=== PATIENT | male | born 1940 | race African-American/Black ===

== ENCOUNTER 2017-01-05 20:51 | Inpatient (IN) | payer MEDICARE ==
[~2017-01-05] VITALS: Ht 193 cm; Wt 88.9 kg
[2017-01-06 00:45] VITALS: BP 117/65
[2017-01-06 02:38] LABS: KETONES,URINE 3+ (NEGATIVE); LEUKOCYTE ESTERASE ,URINE 3+ (NEGATIVE); NITRITE,URINE NEGATIVE (NEGATIVE); PH,URINE 5 (4.5-8.0); PROTEIN,URINE 2+ (NEGATIVE); UROBILINOGEN,URINE 4 MG/DL (0.0-1.0)
[2017-01-06 03:12] LABS: APPEARANCE,URINE SLIGHTLY CLOUDY
[2017-01-06 03:15] LABS: BACTERIA,URINE MANY /HPF; SQUAMOUS EPITHELIAL CELL,UR FEW /LPF (NONE/OCC); WBC,URINE TNTC /HPF (0 - 0)
[2017-01-06] MEDS ORDERED: Norco 5mg/325mg tab ORAL PRN (03:45)
[2017-01-06 04:00] VITALS: BP 130/63
[2017-01-06] MEDS: D5 1/2NS 1,000 ML IV SCH ×2 (04:17→17:06)
[2017-01-06 06:38] LABS: BASOPHILS % (AUTO) 0.4 % (0.0-2.0); EOSINOPHILS % (AUTO) 1.1 % (0.0-3.0); MEAN CORPUSCULAR HEMOGLOBIN 26.9 PG (27.0-31.0); MEAN CORPUSCULAR HGB CONC 31.6 G/DL (32.0-36.0); MEAN CORPUSCULAR VOLUME 85 FL (80-99); MEAN PLATELET VOLUME 8.4 FL (6.5-10.1); MONOCYTES % (AUTO) 9.5 % (1.0-10.0); PLATELET COUNT 108 K/UL (150-450); RED BLOOD COUNT 4.16 M/UL (4.70-6.10); RED CELL DISTRIBUTION WIDTH 12.5 % (11.6-14.8); WHITE BLOOD COUNT 8.1 K/UL (4.8-10.8)
[2017-01-06 06:47] LABS: TROPONIN I < 0.30 ng/mL (<=0.30)
[2017-01-06 06:50] LABS: ALANINE AMINOTRANSFERASE 36 U/L (3-41); ALBUMIN/GLOBULIN RATIO 1.7 (1.0-2.7); ANION GAP 9 (5-15); ASPARTATE AMINO TRANSFERASE 84 U/L (5-40); CALCIUM 9.9 mg/dL (8.6-10.2); CARBON DIOXIDE 27 mEQ/L (20-30); CHLORIDE 102 mEQ/L (98-107); CREATININE 0.9 mg/dL (0.7-1.2); HEMOLYSIS 2; MAGNESIUM 1.7 mg/dL (1.7-2.5); PHOSPHORUS 2.2 mg/dL (2.5-4.8); POTASSIUM 3.9 mEQ/L (3.4-4.9); SODIUM 138 mEQ/L (135-145); TOTAL PROTEIN 6.1 g/dL (6.6-8.7); URIC ACID 6.5 mg/dL (3.0-7.5)
[2017-01-06 08:00] VITALS: BP 144/69
[2017-01-06] MEDS: Heparin 5000 units/ml inj SUBQ SCH ×2 (08:34→20:34)
[2017-01-06] MEDS ORDERED: D5 1/2NS 1000ml IV ONE (11:07)
[2017-01-06 12:00] VITALS: BP 152/78
--- NOTE | 2017-01-06 12:01 | Consultation ---
History of Present Illness General Date patient seen: Jan 06, 2017 Chief Complaint: aloc Referring physician: Dr. Carroll Reason for Consultation: Inpatient management Present Illness HPI 76 year old male without any pmhx was taken to [facility] with CC of acute loss of consciousness. He was not able to get up. He was incontinent with Urine and doesn't have any bite crawley on his tongue. Allergies: Coded Allergies: No Known Allergies (Unverified , 01/06/17) Patient History Healthcare decision maker Resuscitation status Full Code Advanced Directive on File Past Medical/Surgical History Past Medical/Surgical History: (1) No pertinent past medical history Review of Systems All Other Systems: negative except mentioned in HPI Physical Exam General Appearance: WD/WN Lines, tubes and drains: peripheral Neck: non-tender, normal alignment Respiratory/Chest: chest wall non-tender, lungs clear Cardiovascular/Chest: normal peripheral pulses, normal rate Abdomen: normal bowel sounds, non tender Genitourinary/Rectal: normal genital exam, normal rectal exam Skin Exam: normal pigmentation 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 Last 24 Hour Vital Signs Date Time Temp Pulse Resp B/P (MAP) Pulse Ox O2 Delivery O2 Flow Rate FiO2 01/06/17 08:00 97.7 82 20 144/69 97 Room Air 01/06/17 08:00 89 01/06/17 04:00 90 01/06/17 04:00 97.9 88 21 130/63 96 Room Air 01/06/17 01:00 88 01/06/17 00:45 97.9 86 18 117/65 96 Room Air Intake and Output 01/06/17 01/07/17 19:00 07:00 Intake Total 75 ml Balance 75 ml Intake IV Total 75 ml Laboratory Tests Test 01/06/17 01:40 01/06/17 05:25 Urine Color Yellow Urine Appearance Slightly cloudy Urine pH 5 (4.5-8.0) Urine Specific [place] 1.025 (1.005-1.035) Urine Protein 2+ (NEGATIVE) H Urine Glucose (UA) Negative (NEGATIVE) Urine Ketones 3+ (NEGATIVE) H Urine Occult Blood 2+ (NEGATIVE) H Urine Nitrite Negative (NEGATIVE) Urine Bilirubin Negative (NEGATIVE) Urine Urobilinogen 4 MG/DL (0.0-1.0) H Urine Leukocyte Esterase 3+ (NEGATIVE) H Urine RBC 2-4 /HPF (0 - 0) H Urine WBC Tntc /HPF (0 - 0) H Urine Squamous Epithelial Cells Few /LPF (NONE/OCC) Urine Bacteria Many /HPF (NONE) H White Blood Count 8.1 K/UL (4.8-10.8) Red Blood Count 4.16 M/UL (4.70-6.10) L Hemoglobin 11.2 G/DL (14.2-18.0) L Hematocrit 35.5 % (42.0-52.0) L Mean Corpuscular Volume 85 FL (80-99) Mean Corpuscular Hemoglobin 26.9 PG (27.0-31.0) L Mean Corpuscular Hemoglobin Concent 31.6 G/DL (32.0-36.0) L Red Cell Distribution Width 12.5 % (11.6-14.8) Platelet Count 108 K/UL (150-450) L Mean Platelet Volume 8.4 FL (6.5-10.1) Neutrophils (%) (Auto) 71.0 % (45.0-75.0) Lymphocytes (%) (Auto) 18.0 % (20.0-45.0) L Monocytes (%) (Auto) 9.5 % (1.0-10.0) Eosinophils (%) (Auto) 1.1 % (0.0-3.0) Basophils (%) (Auto) 0.4 % (0.0-2.0) Sodium Level 138 mEQ/L (135-145) Potassium Level 3.9 mEQ/L (3.4-4.9) Chloride Level 102 mEQ/L (98-107) Carbon Dioxide Level 27 mEQ/L (20-30) Anion Gap 9 (5-15) Blood Urea Nitrogen 14 mg/dL (7-23) Creatinine 0.9 mg/dL (0.7-1.2) Estimat Glomerular Filtration Rate mL/min (>60) Glucose Level 109 mg/dL (74-106) H Uric Acid 6.5 mg/dL (3.0-7.5) Calcium Level 9.9 mg/dL (8.6-10.2) Phosphorus Level 2.2 mg/dL (2.5-4.8) L Magnesium Level 1.7 mg/dL (1.7-2.5) Total Bilirubin 0.9 mg/dL (0.0-1.2) Aspartate Amino Transf (AST/SGOT) 84 U/L (5-40) H Alanine Aminotransferase (ALT/SGPT) 36 U/L (3-41) Alkaline Phosphatase 66 U/L (40-129) Troponin I < 0.30 ng/mL (<=0.30) Total Protein 6.1 g/dL (6.6-8.7) L Albumin 3.9 g/dL (3.5-5.2) Globulin 2.2 g/dL Albumin/Globulin Ratio 1.7 (1.0-2.7) Height (Feet): 6 Height (Inches): 5.00 Weight (Pounds): 196 Medications Current Medications Medications (Trade) Dose Ordered Sig/Neri Route PRN Reason Start Time Stop Time Status Last Admin Dose Admin Acetaminophen (Tylenol) 650 mg Q6H PRN ORAL Mild Pain/Temp > 100.5 01/06/17 03:45 02/05/17 03:44 Acetaminophen/ Hydrocodone Bitart ([place] 5/325) 1 tab Q6H PRN ORAL Severe Pain (Pain Scale 7-10) 01/06/17 03:45 01/13/17 03:44 Ceftriaxone Sodium 1 gm/ Dextrose 55 ml @ 110 mls/hr Q24H IVPB 01/06/17 12:00 01/13/17 11:59 UNV Dextrose (Dextrose 50%) STAT PRN IV Hypoglycemia 01/06/17 03:30 02/05/17 03:29 Dextrose/Sodium Chloride 1,000 ml @ 75 mls/hr [id number] IV 01/06/17 04:00 02/05/17 03:59 01/06/17 04:17 Heparin Sodium (Porcine) (Heparin 5000 units/ml) 5,000 units EVERY 12 HOURS SUBQ 01/06/17 09:00 02/05/17 08:59 01/06/17 08:34 Assessment/Plan Problem List: (1) Acute encephalopathy ICD Codes: G93.40 - Encephalopathy, unspecified SNOMED: 3468793 (2) UTI (urinary tract infection) ICD Codes: N39.0 - Urinary tract infection, site not specified SNOMED: 04374080 Assessment/Plan cardiac evaluation telemetry echo doppler of carotid artey anemia w/u check urine cultures iv abx check electrolytes ZARRABI,MIRALI Jan 06, 2017 12:01
--- NOTE | 2017-01-06 12:16 | History & Physical ---
History and Physical History & Physicial Dictated for Int Med-Dr Cunha no. [id number]. NETTIE SR Jan 06, 2017 12:16
[2017-01-06] MEDS: cefTRIAXone 1 GM in D5W 55 ML IVPB SCH (12:51)
[2017-01-06 16:00] VITALS: BP 139/84
--- NOTE | 2017-01-06 18:27 | Cardiology Report ---
APPROVED REPORT EXAM: Two-dimensional and M-mode echocardiogram with Doppler and color Doppler. INDICATION Left ventricular function M-Mode DIMENSIONS IVSd0.9 (0.7-1.1cm)Left Atrium (MM)4.4 (1.6-4.0cm) LVDd4.2 (3.5-5.6cm)Aortic Root3.4 (2.0-3.7cm) PWd1.2 (0.7-1.1cm)Aortic Cusp Exc.2.0 (1.5-2.0cm) LVDs3.0 (2.5-4.0cm) PWs1.3 cm Technically difficult study due to poor acoustical windows. Normal left ventricular chamber size, systolic function and wall motion. Left ventricular ejection fraction estimated to be 55-60%. Mild left ventricular hypertrophy. No evidence of pericardial effusion. Right cardiac chamber sizes are within normal limits. Mild left atrial enlargement by 2D. Focal aortic valve sclerosis with adequate cusp excursion. Thickened mitral valve leaflets with normal excursion. Mild mitral annulus and aortic root calcification. Pulmonic valve not well visualized. Normal tricuspid valve structure. IVC dilated at 2.4 cm non-collapsible with respiration indicate increased RA pressure. A color flow and spectral Doppler study was performed and revealed: No mitral regurgitation. Mitral diastolic velocities suggest reduced left ventricular relaxation c/w diastolic dysfunction grade 1. No tricuspid regurgitation. Tricuspid systolic velocities suggests peak right ventricular systolic pressure of 22mmHg Pulmonic regurgitation present.
--- NOTE | 2017-01-06 19:02 | Cardiology Report ---
APPROVED REPORT EKG Measurement Heart [id number] Normal sinus rhythm Nonspecific T wave abnormality Abnormal ECG
--- NOTE | 2017-01-06 20:07 | Consultation ---
Consult Note Consult Note ID Consult Probable UTI Pyuria SP Fall P: Cont pt on IV Rocephin monitor CBC monitor Cx ( bk, Urine ) CINDY Romero M.D. Jan 06, 2017 20:07
[2017-01-06 20:15] VITALS: BP 141/75
--- NOTE | 2017-01-06 21:15 | History and Physical Report ---
DATE OF ADMISSION: 01/06/2017 Chief Complaint: The patient is a 76-year-old male who presents with chief complaint of "blacked out." History Of Present Illness: The patient states he was standing in his kitchen two days previously. The patient "blacked out". The patient states the room did not spin, he just simply passed out. The patient then remained on the kitchen floor for two days. The patient was found by his landlord yesterday, 01/05/2017. EMS was called. The patient was initially transferred to [facility] emergency room. The patient is transferred to [facility] for insurance purposes. The patient is admitted for syncopal episode to rule out cerebrovascular accident. PAST MEDICAL HISTORY: The patient denies. PAST SURGICAL HISTORY: Significant for right knee surgery. MEDICATIONS: Current medications, [id number] multivitamin. Social History: The patient is single and lives alone. The patient admits to tobacco use of one-half pack per day. The patient denies alcohol use. Review of Systems: Constitutional: The patient denies weight loss or weight gain. The patient denies fevers or chills. HEENT: The patient denies ear or throat pain. The patient denies headache. Cardiovascular: The patient denies palpitations or chest pain. Chest: The patient denies wheeze or shortness of breath. Abdomen: The patient denies nausea, vomiting, diarrhea, or constipation. Genitourinary: The patient denies dysuria or increased frequency of urination, however, the patient was incontinent of urine during the last two days. Neurologic: The patient denies seizures. The patient does have generalized weakness. The patient admits to syncopal episode as above. PHYSICAL EXAMINATION: General: The patient is well-developed and well-nourished male, in no apparent distress. Vital Signs: Temperature 97.9 degrees, respirations 18, pulse 86, and blood pressure 117/65. HEENT: Eyes, pupils are equal and responsive to light and accommodation. Extraocular movements are intact. NECK: Supple without lymphadenopathy. Chest: Lungs are clear to auscultation bilaterally without wheezes or rales. Cardiovascular: Regular rhythm and rate. S1 and S2 normal without murmurs, rubs, or gallops. Abdomen: Soft, nontender, and nondistended. Positive bowel sounds. No evidence of hepatosplenomegaly. Currently, no rebound or guarding noted. EXTREMITIES: Negative for clubbing, cyanosis, or edema. RECTAL/GENITAL: Refused. Neurological: The patient has 3/5 motor strength bilaterally. Deep tendon reflexes are 2+ plantar. Laboratory And Diagnostic Data: A CT scan of the brain revealed no acute intracranial pathology. WBC 8.5, hemoglobin 12.8, hematocrit 40.4, and platelets 126,000. Sodium 141, potassium 4.1, chloride 101, CO2 25, BUN 14, creatinine 1.10 and glucose 108. CK elevated at 2385. ASSESSMENT: This is a 76-year-old male. 1. Syncope. 2. Rhabdomyolysis. TREATMENT: 1. Syncopal episode. A Neurology consultation obtained with Dr. Sanchez. An MRI of the brain is pending. Carotid duplex and Dopplers are pending. An echocardiogram is pending. We will follow recommendation of Neurology. 2. Rhabdomyolysis secondary to the patient being on the floor for two days. The patient is currently receiving intravenous fluids. Serial renal function and CPKs will be performed. Tanmay Carroll M.D. DR: ELENA JOB#: [id number] CC:
[2017-01-07 00:17] VITALS: BP 134/83
[2017-01-07 04:00] VITALS: BP 125/72
[2017-01-07] MEDS: D5 1/2NS 1,000 ML IV SCH ×2 (06:24→19:53)
[2017-01-07 06:56] LABS: INR 1.2 (0.9-1.1); PROTHROMBIN TIME 12.2 SEC (9.30-11.50)
[2017-01-07 07:07] LABS: MEAN CORPUSCULAR HEMOGLOBIN 25.8 PG (27.0-31.0); MEAN CORPUSCULAR HGB CONC 30.6 G/DL (32.0-36.0); MEAN CORPUSCULAR VOLUME 84 FL (80-99); MEAN PLATELET VOLUME 9.3 FL (6.5-10.1); PLATELET COUNT 112 K/UL (150-450); RED BLOOD COUNT 4.21 M/UL (4.70-6.10); RED CELL DISTRIBUTION WIDTH 12.3 % (11.6-14.8); WHITE BLOOD COUNT 6.2 K/UL (4.8-10.8)
[2017-01-07 07:38] LABS: CKMB 3.3 ng/mL (< 6.7)
[2017-01-07 07:39] LABS: ANION GAP 15 (5-15); CALCIUM 8.6 mg/dL (8.6-10.2); CARBON DIOXIDE 25 mEQ/L (20-30); CHLORIDE 98 mEQ/L (98-107); CREATININE 0.9 mg/dL (0.7-1.2); HEMOLYSIS 2; POTASSIUM 3.9 mEQ/L (3.4-4.9); SODIUM 138 mEQ/L (135-145)
[2017-01-07 08:00] VITALS: BP 118/56
[2017-01-07 08:04] LABS: RETICULOCYTE COUNT 1.9 % (0.0-2.0)
[2017-01-07 08:25] LABS: ERYTHROCYTE SEDIMENTATION RATE 47 MM/HR (0-20)
[2017-01-07 08:38] LABS: BAND NEUTROPHILS % (MANUAL) 0 % (0-8); BASOPHILS % (MANUAL) 0 % (0-2); EOSINOPHILS % (MANUAL) 0 % (0-3); LYMPHOCYTES % (MANUAL) 17 % (20-45); NEUTROPHILS % (MANUAL) 77 % (45-75); PLATELET ESTIMATE DECREASED; PLATELET MORPHOLOGY NORMAL; TOTAL CELLS COUNTED 100
[2017-01-07 08:39] LABS: HYPOCHROMASIA 2+
[2017-01-07 08:46] LABS: PATH BLOOD SMEAR/OMC SENT TO PATHOLOGIST
[2017-01-07] MEDS: Heparin 5000 units/ml inj SUBQ SCH ×2 (09:34→21:00)
--- NOTE | 2017-01-07 11:47 | Wound Care Consultation ---
Wound Assessment Wound Assessment #1: Wound Number: 1 Wound Present on Admission: Yes New Wound: No Status Change of Wound: No Wound Location Body Site Modif: right Wound Location Body Site: elbow Wound Type: traumatic injury Marianna Test: Does not Marianna Wound Thickness: Full Thickness Wound Length: 3.0 Wound Width: 3.0 Percent of Wound Angle Inlet/Red: 100 Wound Drainage Description: Serosanguineous Wound Drainage Amount: Moderate Wound Drainage Odor: None/Absent Tissue Surrounding Wound: Erythemic Wound General Appearance: Reddened, Draining Wound Assessment #2: Wound Number: 2 Wound Present on Admission: Yes New Wound: No Status Change of Wound: No Wound Location Body Site Modif: right Wound Location Body Site: knee Wound Type: traumatic injury Marianna Test: Does not Marianna Wound Thickness: Partial Thickness Wound Length: 4.0 Wound Width: 4.0 Wound Depth: 0.1 Percent of Wound Angle Inlet/Red: 50 Percent of Wound Bed Yellow/Wh: 50 Wound Drainage Description: Serosanguineous Wound Drainage Amount: Moderate Wound Drainage Odor: None/Absent Tissue Surrounding Wound: Erythemic Wound General Appearance: Reddened, Draining Wound Assessment #3: Wound Number: 3 Wound Present on Admission: Yes New Wound: No Status Change of Wound: No Wound Location Body Site Modif: right, medial Wound Location Body Site: foot Wound Type: scab - scattered scabs Marianna Test: Does not Marianna Wound Thickness: Partial Thickness Percent of Wound Black/Brown: 100 - dry scattered scabs Wound Drainage Amount: None Wound Drainage Odor: None/Absent Tissue Surrounding Wound: Erythemic Wound General Appearance: Open to air, Clean/Dry Wound Assessment #4: Wound Number: 4 Wound Present on Admission: Yes New Wound: No Status Change of Wound: No Wound Location Body Site Modif: left Wound Location Body Site: knee Wound Type: scab Marianna Test: Does not Marianna Wound Thickness: Partial Thickness Percent of Wound Black/Brown: 100 - scab Wound Drainage Amount: None Wound Drainage Odor: None/Absent Tissue Surrounding Wound: Erythemic Wound General Appearance: Open to air, Clean/Dry Wound Assessment #5: Wound Number: 5 Wound Present on Admission: Yes New Wound: No Status Change of Wound: No Wound Location Body Site Modif: left, anterior Wound Location Body Site: wrist Wound Type: traumatic injury Marianna Test: Does not Marianna Wound Thickness: Partial Thickness Wound Length: 1.5 Wound Width: 1.5 Wound Depth: utd Percent of Wound Black/Brown: 100 - scab Wound Drainage Amount: None Wound Drainage Odor: None/Absent Tissue Surrounding Wound: Erythemic Wound General Appearance: Open to air, Clean/Dry Wound Comment #1 right elbow traumatic injury -abrasion. #2 right knee traumatic injury-abrasion. #3 right medial lower leg scattered scabs. #4 left knee area scabs. #5 anterior wrist scab. Recommendation. -Local wound care as ordered. -Turn and reposition. -Keep clean and dry. -Optimize nutrition. -keep scabs clean and dry. -Assess and notify MD for any changes of condition. ANTIONE SANCHEZ Jan 07, 2017 11:47
--- NOTE | 2017-01-07 11:58 | Pulmonology Progress Note ---
Assessment/Plan Problems: (1) Acute encephalopathy (2) UTI (urinary tract infection) Assessment/Plan pt/ot report reviewed pt will need snif or home with 24 hour care. continue abx check curine cultures Subjective ROS Limited/Unobtainable: No Interval Events: asymptomatic Allergies: Coded Allergies: No Known Allergies (Unverified , 01/06/17) Objective Last 24 Hour Vital Signs Date Time Temp Pulse Resp B/P (MAP) Pulse Ox O2 Delivery O2 Flow Rate FiO2 01/07/17 08:00 97.9 78 21 118/56 97 Room Air 01/07/17 08:00 93 01/07/17 04:00 98.2 85 20 125/72 95 Room Air 01/07/17 04:00 88 01/07/17 00:17 97.0 97 20 134/83 95 Room Air 01/07/17 00:00 93 01/06/17 20:15 99.1 86 20 141/75 96 Room Air 01/06/17 20:00 91 01/06/17 16:00 99.0 88 20 139/84 96 Room Air 01/06/17 16:00 96 01/06/17 12:00 96 01/06/17 12:00 98.1 91 18 152/78 97 Room Air General Appearance: WD/WN HEENT: normocephalic, atraumatic Respiratory/Chest: chest wall non-tender, lungs clear Cardiovascular: normal peripheral pulses, normal rate Abdomen: normal bowel sounds, soft, non tender Genitourinary: normal external genitalia Extremities: no cyanosis 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 Microbiology Date/Time Source Procedure Growth Status 01/06/17 01:40 Wound Gram Stain - Final Resulted 01/06/17 01:40 Wound Wound Culture Pending Resulted 01/06/17 17:40 Urine,Ureter/Kidney Urine Culture - Preliminary NO GROWTH Resulted 01/06/17 01:40 Urine,Clean Catch Urine Culture - Preliminary Mixed Gram Positive Organism Resulted Laboratory Tests 01/07/17 05:15: White Blood Count 6.2, Red Blood Count 4.21L, Hemoglobin 10.9L, Hematocrit 35.6L , Mean Corpuscular Volume 84, Mean Corpuscular Hemoglobin 25.8L, Mean Corpuscular Hemoglobin Concent 30.6L, Red Cell Distribution Width 12.3, Platelet Count 112L, Mean Platelet Volume 9.3, Neutrophils (%) (Auto) , Lymphocytes (%) (Auto) , Monocytes (%) (Auto) , Eosinophils (%) (Auto) , Basophils (%) (Auto) , Differential Total Cells Counted 100, Neutrophils % ( Manual) 77H, Lymphocytes % (Manual) 17L, Monocytes % (Manual) 6, Eosinophils % ( Manual) 0, Basophils % (Manual) 0, Band Neutrophils 0, Platelet Estimate DecreasedL, Platelet Morphology Normal, Hypochromasia 2+, Erythrocyte Sedimentation Rate 47H, Reticulocyte Count 1.9, Prothrombin Time 12.2H, Prothromb Time International Ratio 1.2H, Activated Partial Thromboplast Time 27 , Sodium Level 138, Potassium Level 3.9, Chloride Level 98, Carbon Dioxide Level 25, Anion Gap 15, Blood Urea Nitrogen 8, Creatinine 0.9, Estimat Glomerular Filtration Rate , Glucose Level 107H, Calcium Level 8.6, Iron Level 28L, Total Iron Binding Capacity 184L, Percent Iron Saturation 15, Unsaturated Iron Binding 156, Lactate Dehydrogenase 264H, Total Creatine Kinase 1011H, Creatine Kinase MB 3.3, Creatine Kinase MB Relative Index 0.3, Carcinoembryonic Antigen 2.4, Vitamin B12 Level 222, Folate [Pending] Current Medications Medications (Trade) Dose Ordered Sig/Neri Route PRN Reason Start Time Stop Time Status Last Admin Dose Admin Acetaminophen (Tylenol) 650 mg Q6H PRN ORAL Mild Pain/Temp > 100.5 01/06/17 03:45 02/05/17 03:44 Acetaminophen/ Hydrocodone Bitart ([place] 5/325) 1 tab Q6H PRN ORAL Severe Pain (Pain Scale 7-10) 01/06/17 03:45 01/13/17 03:44 01/06/17 16:51 Ceftriaxone Sodium 1 gm/ Dextrose 55 ml @ 110 mls/hr Q24H IVPB 01/06/17 13:00 01/13/17 12:59 01/06/17 12:51 Dextrose (Dextrose 50%) STAT PRN IV Hypoglycemia 01/06/17 03:30 02/05/17 03:29 Dextrose/Sodium Chloride 1,000 ml @ 75 mls/hr [id number] IV 01/06/17 04:00 02/05/17 03:59 01/07/17 06:24 Heparin Sodium (Porcine) (Heparin 5000 units/ml) 5,000 units EVERY 12 HOURS SUBQ 01/06/17 09:00 02/05/17 08:59 01/07/17 09:34 MARY ANN CRUZ Jan 07, 2017 11:58
[2017-01-07 12:00] VITALS: BP 128/63
[2017-01-07] MEDS: cefTRIAXone 1 GM in D5W 55 ML IVPB SCH (12:42)
--- NOTE | 2017-01-07 14:25 | Neurology Progress Note ---
Interim History Interim History ROS Limited/Unobtainable: No Objective Physical Exam Last Vital Signs Date Time Temp Pulse Resp B/P (MAP) Pulse Ox O2 Delivery O2 Flow Rate FiO2 01/07/17 12:00 72 01/07/17 12:00 97.7 21 128/63 96 Room Air Laboratory Tests Test 01/07/17 05:15 White Blood Count 6.2 K/UL (4.8-10.8) Red Blood Count 4.21 M/UL (4.70-6.10) L Hemoglobin 10.9 G/DL (14.2-18.0) L Hematocrit 35.6 % (42.0-52.0) L Mean Corpuscular Volume 84 FL (80-99) Mean Corpuscular Hemoglobin 25.8 PG (27.0-31.0) L Mean Corpuscular Hemoglobin Concent 30.6 G/DL (32.0-36.0) L Red Cell Distribution Width 12.3 % (11.6-14.8) Platelet Count 112 K/UL (150-450) L Mean Platelet Volume 9.3 FL (6.5-10.1) Neutrophils (%) (Auto) % (45.0-75.0) Lymphocytes (%) (Auto) % (20.0-45.0) Monocytes (%) (Auto) % (1.0-10.0) Eosinophils (%) (Auto) % (0.0-3.0) Basophils (%) (Auto) % (0.0-2.0) Differential Total Cells Counted 100 Neutrophils % (Manual) 77 % (45-75) H Lymphocytes % (Manual) 17 % (20-45) L Monocytes % (Manual) 6 % (1-10) Eosinophils % (Manual) 0 % (0-3) Basophils % (Manual) 0 % (0-2) Band Neutrophils 0 % (0-8) Platelet Estimate Decreased L Platelet Morphology Normal Hypochromasia 2+ Erythrocyte Sedimentation Rate 47 MM/HR (0-20) H Reticulocyte Count 1.9 % (0.0-2.0) Prothrombin Time 12.2 SEC (9.30-11.50) H Prothromb Time International Ratio 1.2 (0.9-1.1) H Activated Partial Thromboplast Time 27 SEC (23-33) Sodium Level 138 mEQ/L (135-145) Potassium Level 3.9 mEQ/L (3.4-4.9) Chloride Level 98 mEQ/L (98-107) Carbon Dioxide Level 25 mEQ/L (20-30) Anion Gap 15 (5-15) Blood Urea Nitrogen 8 mg/dL (7-23) Creatinine 0.9 mg/dL (0.7-1.2) Estimat Glomerular Filtration Rate mL/min (>60) Glucose Level 107 mg/dL (74-106) H Calcium Level 8.6 mg/dL (8.6-10.2) Iron Level 28 ug/dL (59-158) L Total Iron Binding Capacity 184 ug/dL (250-400) L Percent Iron Saturation 15 % (15-50) Unsaturated Iron Binding 156 ug/dL (112-346) Lactate Dehydrogenase 264 U/L (135-230) H Total Creatine Kinase 1011 U/L (38-174) H Creatine Kinase MB 3.3 ng/mL (< 6.7) Creatine Kinase MB Relative Index 0.3 Carcinoembryonic Antigen 2.4 ng/mL Vitamin B12 Level 222 pg/mL (211-946) Folate Pending Impression/Recommendations Recommendations # [id number] MAULIK LATHAM Jan 07, 2017 14:24
--- NOTE | 2017-01-07 16:19 | Diagnostic Imaging Report ---
Indication: PAIN Technique: 2 views of the right hip Comparison: None Findings: There is a transverse fracture of the distal femoral neck. This is slightly angulated The joint spaces are preserved Impression: Positive for distal femoral neck fracture Dr. Carroll notified of the findings on 01/07/2017
--- NOTE | 2017-01-07 16:22 | Diagnostic Imaging Report ---
Indication: Right-sided rib pain Technique: Multiple views of the right ribs Comparison: None Findings: No acute fractures. No gross pneumothorax. Impression: Negative
[2017-01-07] MEDS ORDERED: Norco 5mg/325mg tab ORAL PRN (17:00)
[2017-01-07 17:26] VITALS: BP 139/69
--- NOTE | 2017-01-07 18:35 | Infectious Diseases Prog Note ---
Assessment/Plan Assessment/Plan A: no evid of UTI ( pyuria but pt has not symptoms, fever and UCx : mixed low count ) SP Fall and Fem neck fracture P: DC IV Rocephin d# 2 monitor CBC and BMP monitor Cx ( Bl Urine ) Ortho eval :P Subjective Constitutional: Denies: no symptoms, fever, chills, fatigue, anorexia, drenching sweats, other Allergies: Coded Allergies: No Known Allergies (Unverified , 01/06/17) Objective Vital Signs Last 24 Hour Vital Signs Date Time Temp Pulse Resp B/P (MAP) Pulse Ox O2 Delivery O2 Flow Rate FiO2 01/07/17 17:26 99.5 20 139/69 94 Room Air 01/07/17 12:00 72 01/07/17 12:00 97.7 83 21 128/63 96 Room Air 01/07/17 08:00 97.9 78 21 118/56 97 Room Air 01/07/17 08:00 93 01/07/17 04:00 98.2 85 20 125/72 95 Room Air 01/07/17 04:00 88 01/07/17 00:17 97.0 97 20 134/83 95 Room Air 01/07/17 00:00 93 01/06/17 20:15 99.1 86 20 141/75 96 Room Air 01/06/17 20:00 91 Height (Feet): 6 Height (Inches): 5.00 Weight (Pounds): 196 HEENT: anicteric Respiratory/Chest: no respiratory distress Cardiovascular: regularly irregular Abdomen: no organomegaly Microbiology Date/Time Source Procedure Growth Status 01/06/17 01:40 Wound Gram Stain - Final Resulted 01/06/17 01:40 Wound Wound Culture Pending Resulted 01/06/17 17:40 Urine,Ureter/Kidney Urine Culture - Preliminary NO GROWTH Resulted 01/06/17 01:40 Urine,Clean Catch Urine Culture - Preliminary Mixed Gram Positive Organism Resulted Laboratory Tests Test 01/07/17 05:15 White Blood Count 6.2 K/UL (4.8-10.8) Red Blood Count 4.21 M/UL (4.70-6.10) L Hemoglobin 10.9 G/DL (14.2-18.0) L Hematocrit 35.6 % (42.0-52.0) L Mean Corpuscular Volume 84 FL (80-99) Mean Corpuscular Hemoglobin 25.8 PG (27.0-31.0) L Mean Corpuscular Hemoglobin Concent 30.6 G/DL (32.0-36.0) L Red Cell Distribution Width 12.3 % (11.6-14.8) Platelet Count 112 K/UL (150-450) L Mean Platelet Volume 9.3 FL (6.5-10.1) Neutrophils (%) (Auto) % (45.0-75.0) Lymphocytes (%) (Auto) % (20.0-45.0) Monocytes (%) (Auto) % (1.0-10.0) Eosinophils (%) (Auto) % (0.0-3.0) Basophils (%) (Auto) % (0.0-2.0) Differential Total Cells Counted 100 Neutrophils % (Manual) 77 % (45-75) H Lymphocytes % (Manual) 17 % (20-45) L Monocytes % (Manual) 6 % (1-10) Eosinophils % (Manual) 0 % (0-3) Basophils % (Manual) 0 % (0-2) Band Neutrophils 0 % (0-8) Platelet Estimate Decreased L Platelet Morphology Normal Hypochromasia 2+ Erythrocyte Sedimentation Rate 47 MM/HR (0-20) H Reticulocyte Count 1.9 % (0.0-2.0) Prothrombin Time 12.2 SEC (9.30-11.50) H Prothromb Time International Ratio 1.2 (0.9-1.1) H Activated Partial Thromboplast Time 27 SEC (23-33) Sodium Level 138 mEQ/L (135-145) Potassium Level 3.9 mEQ/L (3.4-4.9) Chloride Level 98 mEQ/L (98-107) Carbon Dioxide Level 25 mEQ/L (20-30) Anion Gap 15 (5-15) Blood Urea Nitrogen 8 mg/dL (7-23) Creatinine 0.9 mg/dL (0.7-1.2) Estimat Glomerular Filtration Rate mL/min (>60) Glucose Level 107 mg/dL (74-106) H Calcium Level 8.6 mg/dL (8.6-10.2) Iron Level 28 ug/dL (59-158) L Total Iron Binding Capacity 184 ug/dL (250-400) L Percent Iron Saturation 15 % (15-50) Unsaturated Iron Binding 156 ug/dL (112-346) Lactate Dehydrogenase 264 U/L (135-230) H Total Creatine Kinase 1011 U/L (38-174) H Creatine Kinase MB 3.3 ng/mL (< 6.7) Creatine Kinase MB Relative Index 0.3 Carcinoembryonic Antigen 2.4 ng/mL Vitamin B12 Level 222 pg/mL (211-946) Folate Pending Current Medications Medications (Trade) Dose Ordered Sig/Neri Route PRN Reason Start Time Stop Time Status Last Admin Dose Admin Acetaminophen (Tylenol) 650 mg Q6H PRN ORAL Mild Pain/Temp > 100.5 01/07/17 16:30 02/05/17 16:29 Acetaminophen/ Hydrocodone Bitart ([place] 5/325) 1 tab Q6H PRN ORAL Severe Pain (Pain Scale 7-10) 01/07/17 17:00 01/13/17 16:59 Ceftriaxone Sodium 1 gm/ Dextrose 55 ml @ 110 mls/hr Q24H IVPB 01/08/17 13:00 01/13/17 12:59 Dextrose (Dextrose 50%) STAT PRN IV Hypoglycemia 01/07/17 16:30 02/06/17 16:29 Dextrose/Sodium Chloride 1,000 ml @ 75 mls/hr [id number] IV 01/07/17 16:30 02/05/17 16:29 Heparin Sodium (Porcine) (Heparin 5000 units/ml) 5,000 units EVERY 12 HOURS SUBQ 01/07/17 21:00 02/05/17 08:59 CINDY SIMON M.D. Jan 07, 2017 18:35
--- NOTE | 2017-01-07 19:17 | Internal Med Progress Note ---
Subjective Date of Service: Jan 07, 2017 Physician Name Tanmay Sr Attending Physician Satnam Cunha MD Current Medications Medications (Trade) Dose Ordered Sig/Neri Route PRN Reason Start Time Stop Time Status Last Admin Dose Admin Acetaminophen (Tylenol) 650 mg Q6H PRN ORAL Mild Pain/Temp > 100.5 01/07/17 16:30 02/05/17 16:29 Acetaminophen/ Hydrocodone Bitart ([place] 5/325) 1 tab Q6H PRN ORAL Severe Pain (Pain Scale 7-10) 01/07/17 17:00 01/13/17 16:59 Dextrose (Dextrose 50%) STAT PRN IV Hypoglycemia 01/07/17 16:30 02/06/17 16:29 Dextrose/Sodium Chloride 1,000 ml @ 75 mls/hr [id number] IV 01/07/17 16:30 02/05/17 16:29 Heparin Sodium (Porcine) (Heparin 5000 units/ml) 5,000 units EVERY 12 HOURS SUBQ 01/07/17 21:00 02/05/17 08:59 Allergies: Coded Allergies: No Known Allergies (Unverified , 01/06/17) ROS Limited/Unobtainable: No Constitutional: Reports: no symptoms HEENT: Reports: no symptoms Cardiovascular: Reports: no symptoms Respiratory: Reports: no symptoms Gastrointestinal/Abdominal: Reports: no symptoms Genitourinary: Reports: no symptoms Neurologic/Psychiatric: Reports: no symptoms Subjective 76 YO M admitted with gen weakness and rhabdomyolysis. Now right femur fracture -await Ortho consult. Cover for Int Med-Dr Cunha. Objective Last Vital Signs Date Time Temp Pulse Resp B/P (MAP) Pulse Ox O2 Delivery O2 Flow Rate FiO2 01/07/17 17:26 99.5 20 139/69 94 Room Air 01/07/17 12:00 72 General Appearance: WD/WN, no apparent distress, alert EENT: PERRL/EOMI, normal ENT inspection, TMs normal Neck: non-tender, normal alignment, supple Cardiovascular: normal peripheral pulses, normal rate, regular rhythm, no gallop/murmur, no JVD Respiratory/Chest: chest wall non-tender, lungs clear, normal breath sounds, no respiratory distress, no accessory muscle use Abdomen: normal bowel sounds, non tender, soft, no organomegaly, no mass Extremities: other - right hip pain 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 normal, no motor/sensory deficits Skin: normal pigmentation, warm/dry Laboratory Tests Test 01/07/17 05:15 White Blood Count 6.2 K/UL (4.8-10.8) Red Blood Count 4.21 M/UL (4.70-6.10) L Hemoglobin 10.9 G/DL (14.2-18.0) L Hematocrit 35.6 % (42.0-52.0) L Mean Corpuscular Volume 84 FL (80-99) Mean Corpuscular Hemoglobin 25.8 PG (27.0-31.0) L Mean Corpuscular Hemoglobin Concent 30.6 G/DL (32.0-36.0) L Red Cell Distribution Width 12.3 % (11.6-14.8) Platelet Count 112 K/UL (150-450) L Mean Platelet Volume 9.3 FL (6.5-10.1) Neutrophils (%) (Auto) % (45.0-75.0) Lymphocytes (%) (Auto) % (20.0-45.0) Monocytes (%) (Auto) % (1.0-10.0) Eosinophils (%) (Auto) % (0.0-3.0) Basophils (%) (Auto) % (0.0-2.0) Differential Total Cells Counted 100 Neutrophils % (Manual) 77 % (45-75) H Lymphocytes % (Manual) 17 % (20-45) L Monocytes % (Manual) 6 % (1-10) Eosinophils % (Manual) 0 % (0-3) Basophils % (Manual) 0 % (0-2) Band Neutrophils 0 % (0-8) Platelet Estimate Decreased L Platelet Morphology Normal Hypochromasia 2+ Erythrocyte Sedimentation Rate 47 MM/HR (0-20) H Reticulocyte Count 1.9 % (0.0-2.0) Prothrombin Time 12.2 SEC (9.30-11.50) H Prothromb Time International Ratio 1.2 (0.9-1.1) H Activated Partial Thromboplast Time 27 SEC (23-33) Sodium Level 138 mEQ/L (135-145) Potassium Level 3.9 mEQ/L (3.4-4.9) Chloride Level 98 mEQ/L (98-107) Carbon Dioxide Level 25 mEQ/L (20-30) Anion Gap 15 (5-15) Blood Urea Nitrogen 8 mg/dL (7-23) Creatinine 0.9 mg/dL (0.7-1.2) Estimat Glomerular Filtration Rate mL/min (>60) Glucose Level 107 mg/dL (74-106) H Calcium Level 8.6 mg/dL (8.6-10.2) Iron Level 28 ug/dL (59-158) L Total Iron Binding Capacity 184 ug/dL (250-400) L Percent Iron Saturation 15 % (15-50) Unsaturated Iron Binding 156 ug/dL (112-346) Lactate Dehydrogenase 264 U/L (135-230) H Total Creatine Kinase 1011 U/L (38-174) H Creatine Kinase MB 3.3 ng/mL (< 6.7) Creatine Kinase MB Relative Index 0.3 Carcinoembryonic Antigen 2.4 ng/mL Vitamin B12 Level 222 pg/mL (211-946) Folate Pending Microbiology Date/Time Source Procedure Growth Status 01/06/17 01:40 Wound Gram Stain - Final Resulted 01/06/17 01:40 Wound Wound Culture Pending Resulted 01/06/17 17:40 Urine,Ureter/Kidney Urine Culture - Preliminary NO GROWTH Resulted 01/06/17 01:40 Urine,Clean Catch Urine Culture - Preliminary Mixed Gram Positive Organism Resulted Intake and Output 01/07/17 01/08/17 19:00 07:00 Intake Total 750 ml Balance 750 ml Intake IV Total 750 ml Assessment/Plan Problem List: (1) Syncope (2) Generalized weakness (3) UTI (urinary tract infection) Assessment & Plan: mixed gram pos cocci. See ID note. (4) Rhabdomyolysis Assessment & Plan: Follow CPK. Cont IV fluids. (5) Fracture of femoral neck, right Assessment & Plan: Await ortho consult. Status: not improved TANMAY SR Jan 07, 2017 19:17
[2017-01-07 20:00] VITALS: BP 145/76
[2017-01-08] VITALS: BP 133/65
--- NOTE | 2017-01-08 01:00 | Consultation ---
DATE OF CONSULTATION: 01/07/2017 NEUROLOGIC CONSULTATION CONSULTING PHYSICIAN: Scooter Sanchez M.D. REQUESTING PHYSICIAN: Satnam Cunha M.D. History Of Present Illness: This is a 76-year-old man, seen in neurological consultation to evaluate a new onset of fall with inability to get up with a preexistent gait abnormality. Now that Friday night, the patient reported having a trip and fall accident, he fell on his right side, felt acute pain in his right hip, and was unable to get up. Family called on Friday, there was no response and on Friday, they came in. He was able to speak through the door. They broke in and found him on the ground. Paramedics as well arrived. He was awake. He had urinary incontinence. He was brought to [facility] emergency room. Stat CT of the brain was obtained. This revealed age-related diffuse atrophy with dilated ventricles, but no acute abnormalities. No midline shift. No hemorrhage. The patient presented with no additional complaints. The patient's daughter reported that he had some issues with balance and he has a history of previous falls. The patient transferred to this facility for further assessment and treatment. His initial CBC study with mild anemia, hemoglobin 11.2 and hematocrit 35.5. Coagulation panel, INR 1.2. Urinalysis, WBC too numerous to count, 3+ leukocyte esterase, and 2+ protein. His chemistry panel, slightly elevated AST of 84, blood sugar 109. Low B12 of 222 and elevated total CPK of 1011 with LDH 264. MRI of the brain that was obtained was a poor quality, but there were no evidence of acute intracranial abnormalities. No hemorrhage. No strokes noted. Echocardiogram, ejection fraction of 55% to 60%. No mural thrombi reported. Since admission till present, he was stable. His vital signs remained unchanged. He was afebrile and normotensive. Heart rate of 70. Past Medical History: The patient has no medical issues. He was not on any treatment. He has a history of right knee surgery in the young age. ALLERGIES: None reported. Social History: Lives alone. He is a mild smoker, but no alcohol and no drug abuse. 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 He performs all activities of daily living including shopping and cooking. He was supervised by his daughter and family. FAMILY HISTORY: Noncontributory. Review Of Systems: Right hip pain affecting his ambulation, but denies headache or dizziness. No chest pain. No palpitations. No respiratory problems. Denies abdominal pain or discomfort. No urine or bowel incontinence. Unaware of having previous strokes, TIA, or seizures. PHYSICAL EXAMINATION: General: A well-developed, well-nourished, elderly man, not in acute distress. His family is sitting at the bedside. VITAL SIGNS: His blood pressure is 123/60 and respirations 18. HEENT: Head normocephalic. There is no evidence of trauma although the patient indicated he hit his forehead when fell down. There is no otorrhea and no rhinorrhea noted. Musculoskeletal: Remarkable only for acute tenderness when palpated right hip. Limited range of motion of the right hip. Peripheral pulses 1+ and symmetric. Mental Status: He is alert and oriented x3 with no evidence of aphasia or apraxia. He is somewhat slow in responses. Appears quite coherent, but incomplete historian. He is pleasant, cooperative, and follows commands. Cranial Nerve II: Pupils both responding to light and accommodation. Extraocular movement intact. No nystagmus. CRANIAL NERVE V: Normal corneal responses. Cranial Nerve VII: Drooped left nasolabial fold, which the patient indicated was old. CRANIAL NERVE VIII: Slight decrease in hearing. Cranial Nerves IX Through XII: Tongue is in midline. Symmetric palate elevation. Motor Examination: Able to move both upper extremities without limitation and maintain against the gravity. There is no pronation drift. He is left-handed person. Lower extremities, able to lift left upper extremity against the gravity, but not right where he has significant pain in the right hip preventing him from moving proximal part of the leg. Distally, both feet 5/5. Deep tendon reflexes 1+ in both upper extremities and left lower extremity. Depressed response and right knee jerk. Plantar responses are mute. Sensory Examination: Normal to pinprick and light touch. Gait not tested, but reported attempting to ambulate with physical therapy, required assist. IMPRESSION: 1. History of trip and fall accident with a mild blunt head trauma. 2. Posttraumatic right hip pain, rule out fracture or dislocation. 3. Rule out mild parkinsonian features. 4. Urinary tract infection, rule out urosepsis. RECOMMENDATIONS: 1. Continue with IV fluids and antibiotics. 2. Get an x-ray of right hip and if necessary, proceed with MRI of the hip. 3. Reassess when ambulatory. I will follow with you. Thank you for allowing me to see this interesting patient in neurological consultation. Scooter Sam Sanchez DR: KYLE JOB#: [id number] CC:
[2017-01-08 04:00] VITALS: BP 133/74
[2017-01-08] MEDS: D5 1/2NS 1,000 ML IV SCH ×2 (05:02→18:30)
[2017-01-08 06:49] LABS: BASOPHILS % (AUTO) 0.8 % (0.0-2.0); EOSINOPHILS % (AUTO) 2.3 % (0.0-3.0); LYMPHOCYTES % (AUTO) 22.2 % (20.0-45.0); MEAN CORPUSCULAR HEMOGLOBIN 26.8 PG (27.0-31.0); MEAN CORPUSCULAR HGB CONC 31.4 G/DL (32.0-36.0); MEAN CORPUSCULAR VOLUME 85 FL (80-99); MEAN PLATELET VOLUME 8.3 FL (6.5-10.1); MONOCYTES % (AUTO) 12.3 % (1.0-10.0); NEUTROPHILS % (AUTO) 62.5 % (45.0-75.0); PLATELET COUNT 128 K/UL (150-450); RED BLOOD COUNT 4.17 M/UL (4.70-6.10); RED CELL DISTRIBUTION WIDTH 12.6 % (11.6-14.8); WHITE BLOOD COUNT 6.1 K/UL (4.8-10.8)
[2017-01-08 07:20] LABS: ANION GAP 10 (5-15); CARBON DIOXIDE 29 mEQ/L (20-30); CHLORIDE 101 mEQ/L (98-107); CREATININE 0.9 mg/dL (0.7-1.2); HEMOLYSIS 20; POTASSIUM 3.8 mEQ/L (3.4-4.9); SODIUM 140 mEQ/L (135-145)
[2017-01-08 07:24] LABS: CKMB 4.1 ng/mL (< 6.7)
[2017-01-08 07:47] VITALS: BP 151/82
--- NOTE | 2017-01-08 07:59 | Diagnostic Imaging Report ---
Indication: SYNCOPE, altered mental status Technique: sagittal T1 fast spin echo, axial T1 FLAIR, axial T2 FLAIR, axial T2 FS PROPELLER, axial T2* GRE, axial diffusion weighted images. ADC and exponential ADC maps generated Comparison: None Findings:Exam is limited. Patient could not fit into the high definition head coil due to kyphosis, so standard head coil utilized. Patient also had difficulty holding still, resulting in motion artifact on multiple sequences No abnormal areas of restricted diffusion to suggest acute infarction. No acute hemorrhage or edema. No mass effect nor midline shift. There is age-related enlargement of ventricles and extra-axial CSF spaces. There is periventricular deep white matter chronic ischemic change. The vascular flow voids are preserved.. Visualized orbits and sinuses are unremarkable. Impression: Limited exam, as described above Chronic and age-related changes as described No definite acute infarct, intracranial bleed, edema, or mass effect A preliminary report was previously provided to the nursing unit via PACS system
[2017-01-08] MEDS: Heparin 5000 units/ml inj SUBQ SCH ×2 (08:18→21:57)
--- NOTE | 2017-01-08 09:46 | Consultation ---
DATE OF CONSULTATION: 01/07/2017 INFECTIOUS DISEASES CONSULTATION CONSULTING PHYSICIAN: Familia Comer M.D. REFERRING PHYSICIANS: 1. Aida Moctezuma M.D. 2. Tanmay Carroll M.D. Reason for consultation: Evaluation of the patient for possible urinary tract infection. History of present illness: The patient is a 76-year-old male with multiple medical problems who apparently was found on the floor, was evaluated two days prior to the admission. The patient was found to have lower rhabdomyolysis. Workup suggested possible urinary tract infection. The patient was brought to this medical center. An Infectious Disease consultation has been requested for further evaluation of the patient with his management. PAST MEDICAL HISTORY: Significant for knee surgery. MEDICATIONS: IV Rocephin. ALLERGIES: No known drug allergies. SOCIAL HISTORY: Unavailable. FAMILY HISTORY: Unavailable. Review of systems: Constitutional: Limited, however the patient does not cough and no sore throat. Gastrointestinal: No nausea or vomiting. Genitourinary: No dysuria. PHYSICAL EXAMINATION: Vital signs: Temperature 97, pulse 86, respiratory rate 18, blood pressure 125/72. HEENT: No pale conjunctivae. No icterus. NECK: No lymphadenopathy. CHEST: Clear. HEART: S1 and S2. ABDOMEN: Soft. EXTREMITIES: No cyanosis at this time. NEUROLOGICAL: He is awake, however lethargic. Laboratory data: White blood cells 6.2, hemoglobin 10, platelets 112,000. BUN is 8, creatinine 0.9. ALT and AST are unremarkable. UA, too numerous to count white blood cells. Urine culture pending. Diagnostic data: Hip x-ray is significant for distal femoral neck fracture. Assessment: The patient is a 76-year-old male with multiple medical problems and found to have had chronic fracture. The patient has pyuria, however white cell counts on exam there is no strong indication of infectious process. For now we will continue the patient on IV antibiotics. PLAN: 1. We will continue the patient on IV Rocephin cultures (urine). 2. Monitor CBC. 3. Monitor BMP. 4. Monitor vital signs. 5. Chest x-ray. 6. Based on the patient's clinical course and labs, we will do further recommendations. Thank you for allowing me for this consultation. I will follow the patient during this admission. Familia Comer M.D. DR: Rashid JOB#: [id number] CC:
--- NOTE | 2017-01-08 11:10 | Internal Med Progress Note ---
Subjective Physician Name Nettie Sr Attending Physician Satnam Cunha MD Current Medications Medications (Trade) Dose Ordered Sig/Neri Route PRN Reason Start Time Stop Time Status Last Admin Dose Admin Acetaminophen (Tylenol) 650 mg Q6H PRN ORAL Mild Pain/Temp > 100.5 01/07/17 16:30 02/05/17 16:29 Acetaminophen/ Hydrocodone Bitart ([place] 5/325) 1 tab Q6H PRN ORAL Severe Pain (Pain Scale 7-10) 01/07/17 17:00 01/13/17 16:59 Dextrose (Dextrose 50%) STAT PRN IV Hypoglycemia 01/07/17 16:30 02/06/17 16:29 Dextrose/Sodium Chloride 1,000 ml @ 75 mls/hr [id number] IV 01/07/17 16:30 02/05/17 16:29 01/08/17 05:02 Heparin Sodium (Porcine) (Heparin 5000 units/ml) 5,000 units EVERY 12 HOURS SUBQ 01/07/17 21:00 02/05/17 08:59 01/08/17 08:18 Allergies: Coded Allergies: No Known Allergies (Unverified , 01/06/17) ROS Limited/Unobtainable: No Constitutional: Reports: no symptoms HEENT: Reports: no symptoms Cardiovascular: Reports: no symptoms Respiratory: Reports: no symptoms Gastrointestinal/Abdominal: Reports: no symptoms Genitourinary: Reports: no symptoms Neurologic/Psychiatric: Reports: other - seizure Subjective 76 YO M admitted with gen weakness and rhabdomyolysis. Now right femur fracture -await Ortho consult. Cover for Int Med-Dr Cunha. Objective Last Vital Signs Date Time Temp Pulse Resp B/P (MAP) Pulse Ox O2 Delivery O2 Flow Rate FiO2 01/08/17 07:47 97.8 86 19 151/82 97 Room Air Laboratory Tests Test 01/08/17 06:05 White Blood Count 6.1 K/UL (4.8-10.8) Red Blood Count 4.17 M/UL (4.70-6.10) L Hemoglobin 11.2 G/DL (14.2-18.0) L Hematocrit 35.5 % (42.0-52.0) L Mean Corpuscular Volume 85 FL (80-99) Mean Corpuscular Hemoglobin 26.8 PG (27.0-31.0) L Mean Corpuscular Hemoglobin Concent 31.4 G/DL (32.0-36.0) L Red Cell Distribution Width 12.6 % (11.6-14.8) Platelet Count 128 K/UL (150-450) L Mean Platelet Volume 8.3 FL (6.5-10.1) Neutrophils (%) (Auto) 62.5 % (45.0-75.0) Lymphocytes (%) (Auto) 22.2 % (20.0-45.0) Monocytes (%) (Auto) 12.3 % (1.0-10.0) H Eosinophils (%) (Auto) 2.3 % (0.0-3.0) Basophils (%) (Auto) 0.8 % (0.0-2.0) Sodium Level 140 mEQ/L (135-145) Potassium Level 3.8 mEQ/L (3.4-4.9) Chloride Level 101 mEQ/L (98-107) Carbon Dioxide Level 29 mEQ/L (20-30) Anion Gap 10 (5-15) Blood Urea Nitrogen 8 mg/dL (7-23) Creatinine 0.9 mg/dL (0.7-1.2) Estimat Glomerular Filtration Rate mL/min (>60) Glucose Level 111 mg/dL (74-106) H Calcium Level 9.0 mg/dL (8.6-10.2) Total Creatine Kinase 714 U/L (38-174) H Creatine Kinase MB 4.1 ng/mL (< 6.7) Creatine Kinase MB Relative Index 0.5 Microbiology Date/Time Source Procedure Growth Status 01/06/17 01:40 Wound Gram Stain - Final Resulted 01/06/17 01:40 Wound Culture - Preliminary Usual Skin Kaylan Resulted 01/06/17 17:40 Urine,Ureter/Kidney Urine Culture - Preliminary Mixed Gram Positive Organism Resulted 01/06/17 01:40 Urine,Clean Catch Urine Culture - Final Mixed Gram Positive Organism Complete Intake and Output 01/08/17 01/09/17 19:00 07:00 Intake Total 225 ml Balance 225 ml IV Total 225 ml Objective General Appearance: WD/WN, no apparent distress, alert EENT: PERRL/EOMI, normal ENT inspection, TMs normal Neck: non-tender, normal alignment, supple Cardiovascular: normal peripheral pulses, normal rate, regular rhythm, no gallop/murmur, no JVD Respiratory/Chest: chest wall non-tender, lungs clear, normal breath sounds, no respiratory distress, no accessory muscle use Abdomen: normal bowel sounds, non tender, soft, no organomegaly, no mass Extremities: other - right hip pain 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 See ID note. (4) Rhabdomyolysis Assessment & Plan: Follow CPK. Cont IV fluids. (5) Fracture of femoral neck, right Assessment & Plan: Await ortho consult. Status: not improved NETTIE SR Jan 08, 2017 11:10
[2017-01-08 12:00] VITALS: BP 144/86
[2017-01-08] MEDS ORDERED: cefTRIAXone 1 GM in D5W 55 ML IVPB SCH (13:00)
[2017-01-08 16:00] VITALS: BP 136/79
[2017-01-08] MEDS ORDERED: D5 1/2NS 1000ml IV ONE (16:27)
--- NOTE | 2017-01-08 18:29 | Pulmonology Progress Note ---
Assessment/Plan Problems: (1) Fracture of femoral neck, right (2) Acute encephalopathy (3) UTI (urinary tract infection) Assessment/Plan pt/ot report reviewed pt will need snif or home with 24 hour care. awaiting ortho evaluation Subjective ROS Limited/Unobtainable: No Constitutional: Reports: no symptoms HEENT: Repors: no symptoms Respiratory: Reports: no symptoms Allergies: Coded Allergies: No Known Allergies (Unverified , 01/06/17) Objective Last 24 Hour Vital Signs Date Time Temp Pulse Resp B/P (MAP) Pulse Ox O2 Delivery O2 Flow Rate FiO2 01/08/17 16:00 97.7 88 19 136/79 95 Room Air 01/08/17 12:00 98.0 92 18 144/86 95 Room Air 01/08/17 07:47 97.8 86 19 151/82 97 Room Air 01/08/17 04:00 97.1 84 18 133/74 96 Room Air 01/08/17 00:00 98.0 88 20 133/65 95 Room Air 01/07/17 20:00 97.7 82 18 145/76 96 Room Air Intake and Output 01/08/17 01/09/17 19:00 07:00 Intake Total 375 ml Balance 375 ml IV Total 375 ml General Appearance: WD/WN HEENT: normocephalic Respiratory/Chest: chest wall non-tender, lungs clear Cardiovascular: normal peripheral pulses, normal rate, no JVD Abdomen: normal bowel sounds Extremities: no clubbing 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 Microbiology Date/Time Source Procedure Growth Status 01/06/17 01:40 Wound Gram Stain - Final Resulted 01/06/17 01:40 Wound Culture - Preliminary Usual Skin Kaylan Resulted 01/06/17 17:40 Urine,Ureter/Kidney Urine Culture - Preliminary Mixed Gram Positive Organism Resulted 01/06/17 01:40 Urine,Clean Catch Urine Culture - Final Mixed Gram Positive Organism Complete Laboratory Tests 01/08/17 06:05: White Blood Count 6.1, Red Blood Count 4.17L, Hemoglobin 11.2L, Hematocrit 35.5L , Mean Corpuscular Volume 85, Mean Corpuscular Hemoglobin 26.8L, Mean Corpuscular Hemoglobin Concent 31.4L, Red Cell Distribution Width 12.6, Platelet Count 128L, Mean Platelet Volume 8.3, Neutrophils (%) (Auto) 62.5, Lymphocytes (%) (Auto) 22.2, Monocytes (%) (Auto) 12.3H, Eosinophils (%) (Auto) 2.3, Basophils (%) (Auto) 0.8, Sodium Level 140, Potassium Level 3.8, Chloride Level 101, Carbon Dioxide Level 29, Anion Gap 10, Blood Urea Nitrogen 8, Creatinine 0.9, Estimat Glomerular Filtration Rate , Glucose Level 111H, Calcium Level 9.0, Total Creatine Kinase 714H, Creatine Kinase MB 4.1, Creatine Kinase MB Relative Index 0.5 Current Medications Medications (Trade) Dose Ordered Sig/Neri Route PRN Reason Start Time Stop Time Status Last Admin Dose Admin Acetaminophen (Tylenol) 650 mg Q6H PRN ORAL Mild Pain/Temp > 100.5 01/07/17 16:30 02/05/17 16:29 Acetaminophen/ Hydrocodone Bitart ([place] 5/325) 1 tab Q6H PRN ORAL Severe Pain (Pain Scale 7-10) 01/07/17 17:00 01/13/17 16:59 Dextrose (Dextrose 50%) STAT PRN IV Hypoglycemia 01/07/17 16:30 02/06/17 16:29 Dextrose/Sodium Chloride 1,000 ml @ 75 mls/hr [id number] IV 01/07/17 16:30 02/05/17 16:29 01/08/17 05:02 Heparin Sodium (Porcine) (Heparin 5000 units/ml) 5,000 units EVERY 12 HOURS SUBQ 01/07/17 21:00 02/05/17 08:59 01/08/17 08:18 MARY ANN CRUZ Jan 08, 2017 18:29
--- NOTE | 2017-01-08 18:41 | Cardiology Progress Note ---
Assessment/Plan Assessment/Plan full note dicated [id number] Objective Last 24 Hour Vital Signs Date Time Temp Pulse Resp B/P (MAP) Pulse Ox O2 Delivery O2 Flow Rate FiO2 01/08/17 16:00 97.7 88 19 136/79 95 Room Air 01/08/17 12:00 98.0 92 18 144/86 95 Room Air 01/08/17 07:47 97.8 86 19 151/82 97 Room Air 01/08/17 04:00 97.1 84 18 133/74 96 Room Air 01/08/17 00:00 98.0 88 20 133/65 95 Room Air 01/07/17 20:00 97.7 82 18 145/76 96 Room Air Intake and Output 01/08/17 01/09/17 19:00 07:00 Intake Total 615 ml Balance 615 ml Intake Oral 240 ml IV Total 375 ml # Voids 3 Laboratory Tests Test 01/08/17 06:05 White Blood Count 6.1 K/UL (4.8-10.8) Red Blood Count 4.17 M/UL (4.70-6.10) L Hemoglobin 11.2 G/DL (14.2-18.0) L Hematocrit 35.5 % (42.0-52.0) L Mean Corpuscular Volume 85 FL (80-99) Mean Corpuscular Hemoglobin 26.8 PG (27.0-31.0) L Mean Corpuscular Hemoglobin Concent 31.4 G/DL (32.0-36.0) L Red Cell Distribution Width 12.6 % (11.6-14.8) Platelet Count 128 K/UL (150-450) L Mean Platelet Volume 8.3 FL (6.5-10.1) Neutrophils (%) (Auto) 62.5 % (45.0-75.0) Lymphocytes (%) (Auto) 22.2 % (20.0-45.0) Monocytes (%) (Auto) 12.3 % (1.0-10.0) H Eosinophils (%) (Auto) 2.3 % (0.0-3.0) Basophils (%) (Auto) 0.8 % (0.0-2.0) Sodium Level 140 mEQ/L (135-145) Potassium Level 3.8 mEQ/L (3.4-4.9) Chloride Level 101 mEQ/L (98-107) Carbon Dioxide Level 29 mEQ/L (20-30) Anion Gap 10 (5-15) Blood Urea Nitrogen 8 mg/dL (7-23) Creatinine 0.9 mg/dL (0.7-1.2) Estimat Glomerular Filtration Rate mL/min (>60) Glucose Level 111 mg/dL (74-106) H Calcium Level 9.0 mg/dL (8.6-10.2) Total Creatine Kinase 714 U/L (38-174) H Creatine Kinase MB 4.1 ng/mL (< 6.7) Creatine Kinase MB Relative Index 0.5 Microbiology Date/Time Source Procedure Growth Status 01/06/17 01:40 Wound Gram Stain - Final Resulted 01/06/17 01:40 Wound Culture - Preliminary Usual Skin Kaylan Resulted 01/06/17 17:40 Urine,Ureter/Kidney Urine Culture - Preliminary Mixed Gram Positive Organism Resulted 01/06/17 01:40 Urine,Clean Catch Urine Culture - Final Mixed Gram Positive Organism Complete JOSH LITTLE Jan 08, 2017 18:41
[2017-01-08 20:00] VITALS: BP 106/56
[2017-01-09 00:55] VITALS: BP 110/58
--- NOTE | 2017-01-09 04:00 | Consultation ---
DATE OF CONSULTATION: 01/08/2017 CARDIOLOGY CONSULTATION CONSULTING PHYSICIAN: Alexi Monique M.D. REFERRING PHYSICIAN: Satnam Cunha M.D. REASON FOR REFERRAL: Syncope. History Of Present Illness: This is a 76-year-old gentleman, who initially was taken to [facility] on 01/05/2017 after being found on the floor of his house by his family members. Apparently, the family could not get a hold of him. The family found him on the floor. He has been on the floor for approximately one and half to two days. It appears that the patient gotten up in the middle of the night, the night before to get something to drink and when he got in to the kitchen to get something, he subsequently fell. He does not remember the fall. He does not remember being on the floor, he tried to get up, he was unable to, eventually he was found by family members after sometime, and was transferred to the emergency room at [facility] where he was noted to have CPK of 2385 and diagnosed with rhabdomyolysis and subsequently transferred to [facility] for his insurance reason. He is not having chest pain, pressure, tightness, or heaviness. No PND. No orthopnea. No palpitations. He does admit to having had some dizziness on standing and was not clear of what details. He certainly denies having had any chest pain, pressure, or tightness in his chest recently. He has not seen a physician for approximately three years, but his past medical history apparently was negative for diabetes, high blood pressure, no high cholesterol, no heart attack, cancer, stroke, hepatitis, tuberculosis, asthma, emphysema, ulcers, kidney problems, liver problems, thyroid problems, anemia, arthritis, or any other medical problems except for the fact that according to his daughter he has been off balance. He has had several falls. ALLERGIES: He is not allergic to any medications. Social History: He does smoke. He has cut down from 1.5 pack cigarettes. Does not drink alcoholic beverages. He lives at home. Review Of Systems: Gastrointestinal: He denies any nausea, vomiting, or diarrhea. Genitourinary: He did have some burning on urination. He has been diagnosed with urinary tract, for which he is getting antibiotics. Pulmonary: Negative. Constitutional: Negative. Neurological: Negative, although he is off balance according to his daughter and he has had several frequent falls recently. PHYSICAL EXAMINATION: General: Shows to be elderly gentleman, in no apparent respiratory distress. Vital Signs: Blood pressure is 133/70 with a heart rate of 88, temperature 97.7, and oxygen on room air is 95%. NECK: Supple. No jugular venous distention. LUNGS: Appear to be clear to auscultation and percussion. Cardiac: S1 is normal. S2 is normal. Regular rate and rhythm. No heaves, thrills, gallops, or rubs are noted. ABDOMEN: Soft and nontender. Positive bowel sounds. Extremities: There is no clubbing, cyanosis, or edema. His right leg is rather straight. Laboratory And Diagnostic Data: He has had some labs done at [facility] prior to his evaluation and transferred here. Those labs were reviewed. His EKG report reportedly showed normal sinus rhythm at 73, no ST or T-wave changes, and no old EKG for comparison. A CT scan at present, no intracranial pathology. His telemetry does shows basically sinus rhythm for the duration of time that he was on telemetry, no arrhythmias were noted. An echocardiogram has shown ejection fraction of 55% to 60%. His EKG shows sinus rhythm, normal QRS axis, no ST-T wave abnormalities at significant degree. His echo does not show any significant valvular pathology. His blood tests, white count of 6.1, hemoglobin 11.2, and platelet count of 128,000. His sodium is 140, potassium 3.8, chloride 101, bicarbonate 29, BUN 8, creatinine 0.9, and glucose of 111. Calcium is 9.0. Total CPK most recently 714 down from 2500. His troponin first set was negative. B12 level was 222 and his folic acid was 4. His INR is 1.0 and a PTT of 27. Urinalysis shows too numerous to count WBCs. Imaging, he did have hip x-rays that were done on 01/06/2017 showed positive for distal femoral neck fractures and MRI of the brain showed limited exam, chronic and age related, no definite acute infarction, intracranial bleed, mass effects are noted, and his echocardiogram confirmed ejection fraction of 55% to 60%, no significant valvular pathology being documented. ASSESSMENT: 1. Syncopal fall, possibly volume related. 2. Rhabdomyolysis. 3. Thrombocytopenia. 4. Vitamin B12 insufficiency. Plan: Dr. Cunha, this patient was seen in cardiac consultation. The patient's telemetry, EKG, and echocardiogram are fairly unremarkable, not clear unfortunately and at this time, I am unable to tell whether the patient was orthostatic or not. Orthostatic vitals were never checked. He has received some intravenous fluids and he has continued to receive intravenous fluids. He is on antibiotic for urinary tract infection to be continued. He has been diagnosed with a femoral neck fracture requires surgery. I see no contraindications to the surgery that he may need for his hip based on his results at this time. An electrocardiogram will be ordered for followup tomorrow morning. Alexi Monique M.D. DR: HARRIET JOB#: [id number] CC:
[2017-01-09 04:35] VITALS: BP 125/62
[2017-01-09 07:42] LABS: BASOPHILS % (AUTO) 0.5 % (0.0-2.0); EOSINOPHILS % (AUTO) 3.3 % (0.0-3.0); MEAN CORPUSCULAR HEMOGLOBIN 26.2 PG (27.0-31.0); MEAN CORPUSCULAR VOLUME 85 FL (80-99); MEAN PLATELET VOLUME 7.7 FL (6.5-10.1); MONOCYTES % (AUTO) 15.3 % (1.0-10.0); NEUTROPHILS % (AUTO) 50.9 % (45.0-75.0); PLATELET COUNT 129 K/UL (150-450); RED BLOOD COUNT 4.08 M/UL (4.70-6.10); RED CELL DISTRIBUTION WIDTH 12.7 % (11.6-14.8); WHITE BLOOD COUNT 5.2 K/UL (4.8-10.8)
[2017-01-09 08:03] LABS: ANION GAP 10 (5-15); CALCIUM 8.6 mg/dL (8.6-10.2); CARBON DIOXIDE 28 mEQ/L (20-30); CHLORIDE 100 mEQ/L (98-107); CREATININE 0.8 mg/dL (0.7-1.2); HEMOLYSIS 0; POTASSIUM 3.3 mEQ/L (3.4-4.9); SODIUM 138 mEQ/L (135-145)
[2017-01-09 08:15] VITALS: BP 134/75
[2017-01-09] MEDS: D5 1/2NS 1,000 ML IV SCH ×2 (08:43→21:40)
[2017-01-09] MEDS: Heparin 5000 units/ml inj SUBQ SCH ×2 (08:44→21:25)
--- NOTE | 2017-01-09 11:11 | Pulmonology Progress Note ---
Assessment/Plan Assessment/Plan ASSESSMENT acute toxic metabolic encephalopathy-resolved syncopal episode with fall rhabdo ( likely due to prolonged immobilization) posttraumatic R hip pain R distal femoral neck fracture vitamin B 12 deficiency PLAN OF CARE MS floor neuro follows MRI brain no acute changes, but + chronic age related changes Carotid Duplex ECHO with pEF 55-60% and RVSP of 22 cardio follows orthostatic VS IVF trend CK ( downtrending) monitor renal parameters, lytes , stable X ray R hip c/w R hip fracture ortho surgery eval pending cardio clearance given for surgery pain management DVT prophylaxis rib X ray no fx ID follows, off abx, no evidence of UTI one dose vitamin B12 IM x 1 case discussed and evaluated by supervising physician Subjective Allergies: Coded Allergies: No Known Allergies (Unverified , 01/06/17) Subjective denies chest pain, SOB intermittent pain R hip sitting in the chair, eating lunch Objective Last 24 Hour Vital Signs Date Time Temp Pulse Resp B/P (MAP) Pulse Ox O2 Delivery O2 Flow Rate FiO2 01/09/17 09:49 97.5 01/09/17 08:15 97.1 72 19 134/75 97 Room Air 01/09/17 04:35 97.5 69 18 125/62 95 Room Air 01/09/17 00:55 98.6 71 18 110/58 96 Room Air 01/08/17 20:00 98.1 78 20 106/56 96 Room Air 01/08/17 16:00 97.7 88 19 136/79 95 Room Air 01/08/17 12:00 98.0 92 18 144/86 95 Room Air Intake and Output 01/09/17 01/10/17 19:00 07:00 Intake Total 315 ml Output Total 350 ml Balance -35 ml Intake Oral 240 ml IV Total 75 ml Output Urine Total 350 ml # Voids 1 General Appearance: no acute distress HEENT: normocephalic, atraumatic, anicteric Respiratory/Chest: lungs clear, no respiratory distress, no accessory muscle use Cardiovascular: normal rate, regular rhythm, no JVD Abdomen: normal bowel sounds, soft, non tender, non distended Genitourinary: normal external genitalia Extremities: no edema, pedal pulses normal Neurologic/Psychiatric: abnormal gait, alert, responsive Microbiology Date/Time Source Procedure Growth Status 01/06/17 17:40 Urine,Ureter/Kidney Urine Culture - Final Mixed Gram Positive Organism Complete Laboratory Tests 01/09/17 04:50: White Blood Count 5.2, Red Blood Count 4.08L, Hemoglobin 10.7L, Hematocrit 34.5L , Mean Corpuscular Volume 85, Mean Corpuscular Hemoglobin 26.2L, Mean Corpuscular Hemoglobin Concent 31.0L, Red Cell Distribution Width 12.7, Platelet Count 129L, Mean Platelet Volume 7.7, Neutrophils (%) (Auto) 50.9, Lymphocytes (%) (Auto) 30.0, Monocytes (%) (Auto) 15.3H, Eosinophils (%) (Auto) 3.3H, Basophils (%) (Auto) 0.5, Sodium Level 138, Potassium Level 3.3L, Chloride Level 100, Carbon Dioxide Level 28, Anion Gap 10, Blood Urea Nitrogen 7 , Creatinine 0.8, Estimat Glomerular Filtration Rate , Glucose Level 102, Calcium Level 8.6 Current Medications Medications (Trade) Dose Ordered Sig/Neri Route PRN Reason Start Time Stop Time Status Last Admin Dose Admin Acetaminophen (Tylenol) 650 mg Q6H PRN ORAL Mild Pain/Temp > 100.5 01/07/17 16:30 02/05/17 16:29 Acetaminophen/ Hydrocodone Bitart ([place] 5/325) 1 tab Q6H PRN ORAL Severe Pain (Pain Scale 7-10) 01/07/17 17:00 01/13/17 16:59 01/09/17 08:50 Dextrose (Dextrose 50%) STAT PRN IV Hypoglycemia 01/07/17 16:30 02/06/17 16:29 Dextrose/Sodium Chloride 1,000 ml @ 75 mls/hr [id number] IV 01/07/17 16:30 02/05/17 16:29 01/09/17 08:43 Heparin Sodium (Porcine) (Heparin 5000 units/ml) 5,000 units EVERY 12 HOURS SUBQ 01/07/17 21:00 02/05/17 08:59 01/09/17 08:44 Mine Holcomb NP ([place]te[place]) Jan 09, 2017 11:11
[2017-01-09 12:09] VITALS: BP 165/84
--- NOTE | 2017-01-09 12:48 | Cardiology Report ---
APPROVED REPORT EKG Measurement Heart [id number] Normal sinus rhythm Normal ECG
[2017-01-09] MEDS ORDERED: Vitamin B12 1000mcg/ml Inj IM ONE (13:30)
--- NOTE | 2017-01-09 14:24 | Internal Med Progress Note ---
Subjective Date of Service: Jan 09, 2017 Physician Name Tanmay Sr Attending Physician Satnam uCnha MD Current Medications Medications (Trade) Dose Ordered Sig/Neri Route PRN Reason Start Time Stop Time Status Last Admin Dose Admin Acetaminophen (Tylenol) 650 mg Q6H PRN ORAL Mild Pain/Temp > 100.5 01/07/17 16:30 02/05/17 16:29 Acetaminophen/ Hydrocodone Bitart ([place] 5/325) 1 tab Q6H PRN ORAL Severe Pain (Pain Scale 7-10) 01/07/17 17:00 01/13/17 16:59 01/09/17 08:50 Dextrose (Dextrose 50%) STAT PRN IV Hypoglycemia 01/07/17 16:30 02/06/17 16:29 Dextrose/Sodium Chloride 1,000 ml @ 75 mls/hr [id number] IV 01/07/17 16:30 02/05/17 16:29 01/09/17 08:43 Heparin Sodium (Porcine) (Heparin 5000 units/ml) 5,000 units EVERY 12 HOURS SUBQ 01/07/17 21:00 02/05/17 08:59 01/09/17 08:44 Allergies: Coded Allergies: No Known Allergies (Unverified , 01/06/17) ROS Limited/Unobtainable: No Constitutional: Reports: no symptoms HEENT: Reports: no symptoms Cardiovascular: Reports: no symptoms Respiratory: Reports: no symptoms Gastrointestinal/Abdominal: Reports: no symptoms Genitourinary: Reports: no symptoms Neurologic/Psychiatric: Reports: no symptoms Subjective 76 YO M admitted with gen weakness and rhabdomyolysis. Now right femur fracture -await Ortho consult. Cover for Int Med-Dr Cunha. Await right femur ORIF on Fri01/10/17. Objective Last Vital Signs Date Time Temp Pulse Resp B/P (MAP) Pulse Ox O2 Delivery O2 Flow Rate FiO2 01/09/17 12:09 98.6 69 21 165/84 99 Room Air Laboratory Tests Test 01/09/17 04:50 White Blood Count 5.2 K/UL (4.8-10.8) Red Blood Count 4.08 M/UL (4.70-6.10) L Hemoglobin 10.7 G/DL (14.2-18.0) L Hematocrit 34.5 % (42.0-52.0) L Mean Corpuscular Volume 85 FL (80-99) Mean Corpuscular Hemoglobin 26.2 PG (27.0-31.0) L Mean Corpuscular Hemoglobin Concent 31.0 G/DL (32.0-36.0) L Red Cell Distribution Width 12.7 % (11.6-14.8) Platelet Count 129 K/UL (150-450) L Mean Platelet Volume 7.7 FL (6.5-10.1) Neutrophils (%) (Auto) 50.9 % (45.0-75.0) Lymphocytes (%) (Auto) 30.0 % (20.0-45.0) Monocytes (%) (Auto) 15.3 % (1.0-10.0) H Eosinophils (%) (Auto) 3.3 % (0.0-3.0) H Basophils (%) (Auto) 0.5 % (0.0-2.0) Sodium Level 138 mEQ/L (135-145) Potassium Level 3.3 mEQ/L (3.4-4.9) L Chloride Level 100 mEQ/L (98-107) Carbon Dioxide Level 28 mEQ/L (20-30) Anion Gap 10 (5-15) Blood Urea Nitrogen 7 mg/dL (7-23) Creatinine 0.8 mg/dL (0.7-1.2) Estimat Glomerular Filtration Rate mL/min (>60) Glucose Level 102 mg/dL (74-106) Calcium Level 8.6 mg/dL (8.6-10.2) Microbiology Date/Time Source Procedure Growth Status 01/06/17 17:40 Urine,Ureter/Kidney Urine Culture - Final Mixed Gram Positive Organism Complete Intake and Output 01/09/17 01/10/17 19:00 07:00 Intake Total 315 ml Output Total 350 ml Balance -35 ml Intake Oral 240 ml IV Total 75 ml Output Urine Total 350 ml # Voids 1 Objective General Appearance: WD/WN, no apparent distress, alert EENT: PERRL/EOMI, normal ENT inspection, TMs normal Neck: non-tender, normal alignment, supple Cardiovascular: normal peripheral pulses, normal rate, regular rhythm, no gallop/murmur, no JVD Respiratory/Chest: chest wall non-tender, lungs clear, normal breath sounds, no respiratory distress, no accessory muscle use Abdomen: normal bowel sounds, non tender, soft, no organomegaly, no mass Extremities: other - right hip pain 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 See ID note. (4) Rhabdomyolysis Assessment & Plan: Follow CPK. Cont IV fluids. (5) Fracture of femoral neck, right Assessment & Plan: Scheduled for ORIF Fri01/10/17 TANMAY SR Jan 09, 2017 14:24
[2017-01-09] MEDS ORDERED: D5 1/2NS 1000ml IV ONE (14:52)
--- NOTE | 2017-01-09 14:56 | Infectious Diseases Prog Note ---
Assessment/Plan Assessment/Plan ASSESSMENT: Probable UTI - UCx mixed GP Afebrile without leukocytosis Acute right distal femoral neck fracture - for ORIF 01/10 Syncope Rhabdomyolysis NKDA Full Code PLAN: Cont pt on IV Rocephin perioperatively f/u final cultures monitor CBC, temperatures monitor BMP ORIF 01/10 Subjective Allergies: Coded Allergies: No Known Allergies (Unverified , 01/06/17) Subjective remains afebrile for ORIF tomorrow Objective Vital Signs Last 24 Hour Vital Signs Date Time Temp Pulse Resp B/P (MAP) Pulse Ox O2 Delivery O2 Flow Rate FiO2 01/09/17 12:09 98.6 69 21 165/84 99 Room Air 01/09/17 11:50 83 01/09/17 11:43 69 01/09/17 09:49 97.5 01/09/17 08:15 97.1 72 19 134/75 97 Room Air 01/09/17 04:35 97.5 69 18 125/62 95 Room Air 01/09/17 00:55 98.6 71 18 110/58 96 Room Air 01/08/17 20:00 98.1 78 20 106/56 96 Room Air 01/08/17 16:00 97.7 88 19 136/79 95 Room Air Height (Feet): 6 Height (Inches): 5.00 Weight (Pounds): 196 General Appearance: no acute distress Respiratory/Chest: no respiratory distress Cardiovascular: normal rate, regular rhythm Abdomen: normal bowel sounds, soft, non tender, non distended Microbiology Date/Time Source Procedure Growth Status 01/06/17 17:40 Urine,Ureter/Kidney Urine Culture - Final Mixed Gram Positive Organism Complete Laboratory Tests Test 01/09/17 04:50 White Blood Count 5.2 K/UL (4.8-10.8) Red Blood Count 4.08 M/UL (4.70-6.10) L Hemoglobin 10.7 G/DL (14.2-18.0) L Hematocrit 34.5 % (42.0-52.0) L Mean Corpuscular Volume 85 FL (80-99) Mean Corpuscular Hemoglobin 26.2 PG (27.0-31.0) L Mean Corpuscular Hemoglobin Concent 31.0 G/DL (32.0-36.0) L Red Cell Distribution Width 12.7 % (11.6-14.8) Platelet Count 129 K/UL (150-450) L Mean Platelet Volume 7.7 FL (6.5-10.1) Neutrophils (%) (Auto) 50.9 % (45.0-75.0) Lymphocytes (%) (Auto) 30.0 % (20.0-45.0) Monocytes (%) (Auto) 15.3 % (1.0-10.0) H Eosinophils (%) (Auto) 3.3 % (0.0-3.0) H Basophils (%) (Auto) 0.5 % (0.0-2.0) Sodium Level 138 mEQ/L (135-145) Potassium Level 3.3 mEQ/L (3.4-4.9) L Chloride Level 100 mEQ/L (98-107) Carbon Dioxide Level 28 mEQ/L (20-30) Anion Gap 10 (5-15) Blood Urea Nitrogen 7 mg/dL (7-23) Creatinine 0.8 mg/dL (0.7-1.2) Estimat Glomerular Filtration Rate mL/min (>60) Glucose Level 102 mg/dL (74-106) Calcium Level 8.6 mg/dL (8.6-10.2) Current Medications Medications (Trade) Dose Ordered Sig/Neri Route PRN Reason Start Time Stop Time Status Last Admin Dose Admin Acetaminophen (Tylenol) 650 mg Q6H PRN ORAL Mild Pain/Temp > 100.5 01/07/17 16:30 02/05/17 16:29 Acetaminophen/ Hydrocodone Bitart ([place] 5/325) 1 tab Q6H PRN ORAL Severe Pain (Pain Scale 7-10) 01/07/17 17:00 01/13/17 16:59 01/09/17 08:50 Dextrose (Dextrose 50%) STAT PRN IV Hypoglycemia 01/07/17 16:30 02/06/17 16:29 Dextrose/Sodium Chloride 1,000 ml @ 75 mls/hr [id number] IV 01/07/17 16:30 02/05/17 16:29 01/09/17 08:43 Heparin Sodium (Porcine) (Heparin 5000 units/ml) 5,000 units EVERY 12 HOURS SUBQ 01/07/17 21:00 02/05/17 08:59 9/21/17 08:44 CARLOZ SANFORD 21, 2017 14:55
[2017-01-09 16:00] VITALS: BP 143/82
--- NOTE | 2017-01-09 16:02 | Cardiology Progress Note ---
Assessment/Plan Assessment/Plan 1. Syncopal fall, possibly volume related. 2. Rhabdomyolysis. 3. Thrombocytopenia. 4. Vitamin B12 insufficiency 5. femoral neck fracture Subjective Cardiovascular: Denies: chest pain, lightheadedness, palpitations Respiratory: Denies: shortness of breath Gastrointestinal/Abdominal: Denies: abdominal pain Genitourinary: Denies: burning Objective Last 24 Hour Vital Signs Date Time Temp Pulse Resp B/P (MAP) Pulse Ox O2 Delivery O2 Flow Rate FiO2 01/09/17 12:09 98.6 69 21 165/84 99 Room Air 01/09/17 11:50 83 01/09/17 11:43 69 01/09/17 09:49 97.5 01/09/17 08:15 97.1 72 19 134/75 97 Room Air 01/09/17 04:35 97.5 69 18 125/62 95 Room Air 01/09/17 00:55 98.6 71 18 110/58 96 Room Air 01/08/17 20:00 98.1 78 20 106/56 96 Room Air General Appearance: alert Neck: supple Cardiovascular: normal rate, regular rhythm Respiratory/Chest: lungs clear Abdomen: normal bowel sounds, non tender, soft Extremities: no swelling Intake and Output 01/09/17 01/10/17 19:00 07:00 Intake Total 795 ml Output Total 350 ml Balance 445 ml Intake Oral 720 ml IV Total 75 ml Output Urine Total 350 ml # Voids 1 Laboratory Tests Test 01/09/17 04:50 White Blood Count 5.2 K/UL (4.8-10.8) Red Blood Count 4.08 M/UL (4.70-6.10) L Hemoglobin 10.7 G/DL (14.2-18.0) L Hematocrit 34.5 % (42.0-52.0) L Mean Corpuscular Volume 85 FL (80-99) Mean Corpuscular Hemoglobin 26.2 PG (27.0-31.0) L Mean Corpuscular Hemoglobin Concent 31.0 G/DL (32.0-36.0) L Red Cell Distribution Width 12.7 % (11.6-14.8) Platelet Count 129 K/UL (150-450) L Mean Platelet Volume 7.7 FL (6.5-10.1) Neutrophils (%) (Auto) 50.9 % (45.0-75.0) Lymphocytes (%) (Auto) 30.0 % (20.0-45.0) Monocytes (%) (Auto) 15.3 % (1.0-10.0) H Eosinophils (%) (Auto) 3.3 % (0.0-3.0) H Basophils (%) (Auto) 0.5 % (0.0-2.0) Sodium Level 138 mEQ/L (135-145) Potassium Level 3.3 mEQ/L (3.4-4.9) L Chloride Level 100 mEQ/L (98-107) Carbon Dioxide Level 28 mEQ/L (20-30) Anion Gap 10 (5-15) Blood Urea Nitrogen 7 mg/dL (7-23) Creatinine 0.8 mg/dL (0.7-1.2) Estimat Glomerular Filtration Rate mL/min (>60) Glucose Level 102 mg/dL (74-106) Calcium Level 8.6 mg/dL (8.6-10.2) Microbiology Date/Time Source Procedure Growth Status 01/06/17 17:40 Urine,Ureter/Kidney Urine Culture - Final Mixed Gram Positive Organism Complete JOSH LITTLE Jan 09, 2017 16:02
[2017-01-09 20:00] VITALS: BP 142/79
[2017-01-10] VITALS (13 sets, daily range): BP systolic 131–172; BP diastolic 71–89
[2017-01-10 07:08] LABS: BASOPHILS % (AUTO) 0.7 % (0.0-2.0); EOSINOPHILS % (AUTO) 4.1 % (0.0-3.0); LYMPHOCYTES % (AUTO) 31.2 % (20.0-45.0); MEAN CORPUSCULAR HEMOGLOBIN 26.5 PG (27.0-31.0); MEAN CORPUSCULAR VOLUME 85 FL (80-99); MEAN PLATELET VOLUME 8.5 FL (6.5-10.1); MONOCYTES % (AUTO) 13.6 % (1.0-10.0); NEUTROPHILS % (AUTO) 50.4 % (45.0-75.0); PLATELET COUNT 164 K/UL (150-450); RED BLOOD COUNT 4.24 M/UL (4.70-6.10); RED CELL DISTRIBUTION WIDTH 12.5 % (11.6-14.8)
[2017-01-10 07:14] LABS: ANION GAP 9 (5-15); CALCIUM 9.1 mg/dL (8.6-10.2); CARBON DIOXIDE 29 mEQ/L (20-30); CHLORIDE 103 mEQ/L (98-107); CREATININE 0.8 mg/dL (0.7-1.2); HEMOLYSIS 0; POTASSIUM 4.4 mEQ/L (3.4-4.9); SODIUM 141 mEQ/L (135-145)
[2017-01-10] MEDS: Heparin 5000 units/ml inj SUBQ SCH ×2 (08:04→21:00)
[2017-01-10 10:47] LABS: OTHERS PATHOLOGIST COMMENT
[2017-01-10] MEDS ORDERED: D5 1/2NS 1000ml IV ONE (10:56)
[2017-01-10] MEDS: D5 1/2NS 1,000 ML IV SCH (11:32)
--- NOTE | 2017-01-10 13:32 | Pulmonology Progress Note ---
Assessment/Plan Assessment/Plan ASSESSMENT acute toxic metabolic encephalopathy-resolved syncopal episode with fall rhabdo ( likely due to prolonged immobilization) posttraumatic R hip pain R distal femoral neck fracture vitamin B 12 deficiency PLAN OF CARE MS floor neuro follows MRI brain no acute changes, but + chronic age related changes Carotid Duplex ECHO with pEF 55-60% and RVSP of 22 cardio follows orthostatic VS IVF trend CK ( downtrending) monitor renal parameters, lytes , stable X ray R hip c/w R hip fracture ortho surgery follows cardio clearance given for surgery pending surgery pain management DVT prophylaxis rib X ray no fx ID follows, off abx, no evidence of UTI s/p one dose vitamin B12 IM x 1 case discussed and evaluated by supervising physician Subjective Allergies: Coded Allergies: No Known Allergies (Unverified , 01/06/17) Subjective denies chest pain, SOB intermittent pain R hip ortho surgeon seen earlier today Objective Last 24 Hour Vital Signs Date Time Temp Pulse Resp B/P (MAP) Pulse Ox O2 Delivery O2 Flow Rate FiO2 01/10/17 11:35 97.8 72 20 131/72 99 Room Air 01/10/17 08:25 97.6 66 20 144/82 97 Room Air 01/10/17 04:00 97.8 77 18 149/77 98 Room Air 01/10/17 00:00 98.2 75 19 144/71 97 Room Air 01/09/17 20:00 98.0 74 19 142/79 98 Room Air 01/09/17 16:00 98.2 74 20 143/82 98 Room Air Objective General Appearance: no acute distress HEENT: normocephalic, atraumatic, anicteric Respiratory/Chest: lungs clear, no respiratory distress, no accessory muscle use Cardiovascular: normal rate, regular rhythm, no JVD Abdomen: normal bowel sounds, soft, non tender, non distended Genitourinary: normal external genitalia Extremities: no edema, pedal pulses normal Neurologic/Psychiatric: abnormal gait, alert, responsive Laboratory Tests 01/10/17 05:55: White Blood Count 6.0, Red Blood Count 4.24L, Hemoglobin 11.2L, Hematocrit 36.2L , Mean Corpuscular Volume 85, Mean Corpuscular Hemoglobin 26.5L, Mean Corpuscular Hemoglobin Concent 31.0L, Red Cell Distribution Width 12.5, Platelet Count 164, Mean Platelet Volume 8.5, Neutrophils (%) (Auto) 50.4, Lymphocytes (%) (Auto) 31.2, Monocytes (%) (Auto) 13.6H, Eosinophils (%) (Auto) 4.1H, Basophils (%) (Auto) 0.7, Sodium Level 141, Potassium Level 4.4, Chloride Level 103, Carbon Dioxide Level 29, Anion Gap 9, Blood Urea Nitrogen 5L, Creatinine 0.8, Estimat Glomerular Filtration Rate , Glucose Level 103, Calcium Level 9.1 Current Medications Medications (Trade) Dose Ordered Sig/Neri Route PRN Reason Start Time Stop Time Status Last Admin Dose Admin Acetaminophen (Tylenol) 650 mg Q6H PRN ORAL Mild Pain/Temp > 100.5 01/07/17 16:30 02/05/17 16:29 Acetaminophen/ Hydrocodone Bitart ([place] 5/325) 1 tab Q6H PRN ORAL Severe Pain (Pain Scale 7-10) 01/07/17 17:00 01/13/17 16:59 01/09/17 08:50 Dextrose (Dextrose 50%) STAT PRN IV Hypoglycemia 01/07/17 16:30 02/06/17 16:29 Dextrose/Sodium Chloride 1,000 ml @ 75 mls/hr [id number] IV 01/07/17 16:30 02/05/17 16:29 01/10/17 11:32 Heparin Sodium (Porcine) (Heparin 5000 units/ml) 5,000 units EVERY 12 HOURS SUBQ 01/07/17 21:00 02/05/17 08:59 01/09/17 21:25 Mine Holcomb NP ([place]) Jan 10, 2017 13:32
[2017-01-10] MEDS ORDERED: Metoclopramide 10mg/2ml Inj ONE (15:00)
[2017-01-10] MEDS ORDERED: Sterile Water Irrig 1000ml IRRIG ONE (15:00)
[2017-01-10] MEDS ORDERED: NS Irrig 2000ml IRRIG ONE (15:00)
[2017-01-10] MEDS ORDERED: Zemuron 50mg/5ml Inj IV ONE (15:00)
[2017-01-10] MEDS ORDERED: Propofol 200mg/20ml IV ONE (15:00)
[2017-01-10] MEDS ORDERED: Neostigmine 1mg/ml 10ml Inj ONE ×2 (15:00→17:40)
[2017-01-10] MEDS ORDERED: Morphine Sulfate 10mg/ml Inj ONE (15:00)
[2017-01-10] MEDS ORDERED: Phenylephrine 10mg/ml Vial ONE (15:00)
[2017-01-10] MEDS ORDERED: Glycopyrrolate 0.2mg/ml 1ml Vial ONE (15:00)
[2017-01-10] MEDS ORDERED: NS Irrig 1000ml ONE (15:00)
[2017-01-10] MEDS ORDERED: Morphine Sulfate PF 10 ML ONE ×2 (15:43→17:16)
[2017-01-10] MEDS ORDERED: Bupivacaine 0.5% Inj 30 ml vial INJ ONE (15:44)
[2017-01-10] MEDS ORDERED: Bacitracin 50000 Units Vial ONE (15:44)
[2017-01-10] MEDS ORDERED: Bupivacaine w/Epi 0.5% 30ml Vial INJ ONE (15:44)
[2017-01-10] MEDS ORDERED: Duramorph PF 10mg/10ml amp IV ONE (15:44)
[2017-01-10] MEDS ORDERED: NeoSporin Gu Irrig 1ml Amp IRRIG ONE (15:44)
[2017-01-10] MEDS ORDERED: Kenalog-40 1ml Vial ONE (15:44)
[2017-01-10] MEDS ORDERED: Ketorolac 30mg Inj ONE (15:44)
--- NOTE | 2017-01-10 16:11 | Pre-Procedure Note/Attestation ---
Pre-Procedure Note/Attestation Complete Prior to Procedure Planned Procedure: right Procedure Narrative: hip hemiarthropasty Indications for Procedure Pre-Operative Diagnosis: right hip fracture Attestation I attest that I discussed the nature of the procedure; its benefits; risks and complications; and alternatives (and the risks and benefits of such alternatives ), prior to the procedure, with the patient (or the patient's legal school admissions representative). I attest that, if there was a reasonable possibility of needing a blood transfusion, the patient (or the patient's legal school admissions representative) was given the [facility] standardized written summary, pursuant to the Raji Patrick Blood Safety Act ([place] Health and Safety Code # 1645, as amended). I attest that I re-evaluated the patient just prior to the surgery and that there has been no change in the patient's H&P, except as documented below: NICKO HUTSON Jan 10, 2017 16:11
--- NOTE | 2017-01-10 16:12 | Operative Note - PDOC ---
Operative Note Operative Note Pre-op Diagnosis: right hip fracture Procedure: right hip hemiarthroplasty Post-op Diagnosis: same as pre-op Operative Findings: consistent w/pre-op dx studies Anesthesia: regional Specimen: none Complications: none Condition: stable Estimated Blood Loss: none Implant(s) used?: Yes NICKO HUTSON Jan 10, 2017 16:12
[2017-01-10] MEDS ORDERED: Norco 5mg/325mg tab ORAL PRN (16:15)
[2017-01-10] MEDS ORDERED: Metoclopramide 10mg/2ml Inj IVP PRN ×2 (16:15→18:15)
[2017-01-10] MEDS ORDERED: Morphine Sulfate 2mg/ml Inj IVP PRN ×2 (16:15)
[2017-01-10] MEDS ORDERED: Milk of Magnesia 30ml Ud ORAL PRN (16:15)
[2017-01-10] MEDS ORDERED: Norco 7.5mg/325mg tab ORAL PRN (16:15)
[2017-01-10] MEDS ORDERED: Acetaminophen (Non formulary) 100 ML IV ONE (16:30)
--- NOTE | 2017-01-10 17:30 | Internal Med Progress Note ---
Subjective Date of Service: Jan 10, 2017 Physician Name SrTanmay Attending Physician Satnam Cunha MD Current Medications Medications (Trade) Dose Ordered Sig/Neri Route PRN Reason Start Time Stop Time Status Last Admin Dose Admin Acetaminophen (Tylenol) 650 mg Q6H PRN ORAL Mild Pain/Temp > 100.5 01/07/17 16:30 02/05/17 16:29 Acetaminophen/ Hydrocodone Bitart ([place] 5/325) 1 tab Q6H PRN ORAL Severe Pain (Pain Scale 7-10) 01/07/17 17:00 01/13/17 16:59 01/09/17 08:50 Acetaminophen/ Hydrocodone Bitart ([place] 5/325) 2 tab Q6H PRN ORAL Severe Pain (Pain Scale 7-10) 01/10/17 16:15 01/17/17 16:14 UNV Acetaminophen/ Hydrocodone Bitart ([place] 7.5/325) 1 ea Q4H PRN ORAL Moderate Pain (Pain Scale 4-6) 01/10/17 16:15 01/17/17 16:14 UNV Cefazolin Sodium 2 gm/Dextrose 110 ml @ 220 mls/hr EVERY 8 HOURS IV 01/10/17 22:00 01/11/17 06:29 UNV Dextrose (Dextrose 50%) STAT PRN IV Hypoglycemia 01/07/17 16:30 02/06/17 16:29 Dextrose/ Electrolytes 1,000 ml @ 75 mls/hr [id number] IV 01/10/17 16:10 02/09/17 16:09 UNV Dextrose/Sodium Chloride 1,000 ml @ 75 mls/hr [id number] IV 01/07/17 16:30 02/05/17 16:29 01/10/17 11:32 Docusate Sodium (Colace) 100 mg THREE TIMES A DAY ORAL 01/10/17 18:00 02/09/17 17:59 UNV Heparin Sodium (Porcine) (Heparin 5000 units/ml) 5,000 units EVERY 12 HOURS SUBQ 01/07/17 21:00 02/05/17 08:59 01/09/17 21:25 Magnesium Hydroxide (Mom) 30 ml DAILYPRN PRN ORAL Constipation 01/10/17 16:15 02/09/17 16:14 UNV Metoclopramide HCl (Reglan) 10 mg Q6HR PRN IVP Nausea & Vomiting 01/10/17 16:15 02/09/17 16:14 UNV Morphine Sulfate (Morphine Sulfate) 1 mg Q3H PRN IVP Pain scale 1-3 01/10/17 16:15 01/17/17 16:14 UNV Morphine Sulfate (Morphine Sulfate) 2 mg Q3H PRN IVP Moderate Pain (Pain Scale 4-6) 01/10/17 16:15 01/17/17 16:14 UNV Ondansetron HCl (Zofran) 4 mg Q6HR PRN IVP Nausea & Vomiting 01/10/17 16:15 02/09/17 16:14 UNV Temazepam (Restoril) 7.5 mg DAILY PRN ORAL Insomnia 01/10/17 16:15 01/17/17 16:14 UNV Allergies: Coded Allergies: No Known Allergies (Unverified , 01/06/17) Subjective 76 YO M admitted with gen weakness and rhabdomyolysis. Cover for Int Med-Dr Cunha. S/P right hip hemiarthroplasty on Fri01/10/17. Objective Last Vital Signs Date Time Temp Pulse Resp B/P (MAP) Pulse Ox O2 Delivery O2 Flow Rate FiO2 01/10/17 11:35 97.8 72 20 131/72 99 Room Air Laboratory Tests Test 01/10/17 05:55 White Blood Count 6.0 K/UL (4.8-10.8) Red Blood Count 4.24 M/UL (4.70-6.10) L Hemoglobin 11.2 G/DL (14.2-18.0) L Hematocrit 36.2 % (42.0-52.0) L Mean Corpuscular Volume 85 FL (80-99) Mean Corpuscular Hemoglobin 26.5 PG (27.0-31.0) L Mean Corpuscular Hemoglobin Concent 31.0 G/DL (32.0-36.0) L Red Cell Distribution Width 12.5 % (11.6-14.8) Platelet Count 164 K/UL (150-450) Mean Platelet Volume 8.5 FL (6.5-10.1) Neutrophils (%) (Auto) 50.4 % (45.0-75.0) Lymphocytes (%) (Auto) 31.2 % (20.0-45.0) Monocytes (%) (Auto) 13.6 % (1.0-10.0) H Eosinophils (%) (Auto) 4.1 % (0.0-3.0) H Basophils (%) (Auto) 0.7 % (0.0-2.0) Sodium Level 141 mEQ/L (135-145) Potassium Level 4.4 mEQ/L (3.4-4.9) Chloride Level 103 mEQ/L (98-107) Carbon Dioxide Level 29 mEQ/L (20-30) Anion Gap 9 (5-15) Blood Urea Nitrogen 5 mg/dL (7-23) L Creatinine 0.8 mg/dL (0.7-1.2) Estimat Glomerular Filtration Rate mL/min (>60) Glucose Level 103 mg/dL (74-106) Calcium Level 9.1 mg/dL (8.6-10.2) Intake and Output 01/10/17 01/11/17 19:00 07:00 Intake Total 375 ml Balance 375 ml IV Total 375 ml Objective General Appearance: WD/WN, no apparent distress, alert EENT: PERRL/EOMI, normal ENT inspection, TMs normal Neck: non-tender, normal alignment, supple Cardiovascular: normal peripheral pulses, normal rate, regular rhythm, no gallop/murmur, no JVD Respiratory/Chest: chest wall non-tender, lungs clear, normal breath sounds, no respiratory distress, no accessory muscle use Abdomen: normal bowel sounds, non tender, soft, no organomegaly, no mass Extremities: other - right hip pain Neurologic: skein inspector II-XII grossly normal, no motor/sensory deficits Skin: normal pigmentation, warm/dry Assessment/Plan Problem List: (1) Syncope (2) Generalized weakness (3) UTI (urinary tract infection) Assessment & Plan: mixed gram pos cocci. See ID note. (4) Rhabdomyolysis Assessment & Plan: Follow CPK. Cont IV fluids. (5) Fracture of femoral neck, right Assessment & Plan: S/P right hip hemiarthroplasty on Fri01/10/17 Status: not improved TANMAY SR Jan 10, 2017 17:30
--- NOTE | 2017-01-10 18:10 | Immediate Post-Op Evaluation ---
Immediate Post-Op Evalulation Immediate Post-Op Evalulation Procedure: right hip lefty arthroplasty Date of Evaluation: Jan 10, 2017 Time of Evaluation: 18:00 IV Fluids: 1200 Blood Products: 0 Estimated Blood Loss: 200 Urinary Output: 200 Blood Pressure Systolic: 170 Blood Pressure Diastolic: 100 Pulse Rate: 78 Respiratory Rate: 14 O2 Sat by Pulse Oximetry: 100 Temperature (Fahrenheit): 97.1 Nausea: No Vomiting: No Complications none Patient Status: awake, reacts, patent Hydration Status: adequate Drug: ancef Given Within 1 Hr of Incision: Yes Time Given: 15:00 AUGUSTUS FENTON CRNA Jan 10, 2017 18:10
--- NOTE | 2017-01-10 18:14 | Anethesia Preoperative Eval ---
Anesthesia Pre-op PMH/ROS General Date of Evaluation: Jan 10, 2017 Time of Evaluation: 18:11 Anesthesiologist: gissel ASA Score: ASA 3 Mallampati Score Class I : Soft palate, uvula, fauces, pillars visible Class II: Soft palate, uvula, fauces visible Class III: Soft palate, base of uvula visible Class IV: Only hard plate visible Mallampati Classification: Class III Surgeon: dawn Diagnosis: hip fx Surgical Procedure: lefty arthroplasty Anesthesia History: none Family History: no anesthesia problems Allergies: Coded Allergies: No Known Allergies (Unverified , 01/06/17) Medications: see eMAR Past Medical History Cardiovascular: Reports: HTN Pulmonary: Denies: asthma, COPD, ARNULFO, other Gastrointestinal/Genitourinary: Denies: GERD, CRI, ESRD, other Neurologic/Psychiatric: Denies: dementia, CVA, depression/anxiety, TIA, other Endocrine: Denies: DM, hypothyroidism, steroids, other HEENT: Denies: cataract (L), cataract (R), glaucoma, [place] (L), [place] (R), other Hematology/Immune: Reports: anemia Musculoskeletal/Integumentary: Reports: OA PMH Narrative: rhabdomylysis PSxH Narrative: knee surgery Anesthesia Pre-op Phys. Exam Physician Exam Last Vital Signs Date Time Temp Pulse Resp B/P (MAP) Pulse Ox O2 Delivery O2 Flow Rate FiO2 01/10/17 11:35 97.8 72 20 131/72 99 Room Air Constitutional: NAD Neurologic: CN 2-12 intact Cardiovascular: RRR Respiratory: CTA Airway Exam Mallampati Classification 3 Mallampati Score: Class III Neck: 2fb ROM: full Dentures: upper, lower Anesthesia Pre-op A/P Labs Hematology Test 01/10/17 05:55 White Blood Count 6.0 K/UL (4.8-10.8) Red Blood Count 4.24 M/UL (4.70-6.10) L Hemoglobin 11.2 G/DL (14.2-18.0) L Hematocrit 36.2 % (42.0-52.0) L Mean Corpuscular Volume 85 FL (80-99) Mean Corpuscular Hemoglobin 26.5 PG (27.0-31.0) L Mean Corpuscular Hemoglobin Concent 31.0 G/DL (32.0-36.0) L Red Cell Distribution Width 12.5 % (11.6-14.8) Platelet Count 164 K/UL (150-450) Mean Platelet Volume 8.5 FL (6.5-10.1) Neutrophils (%) (Auto) 50.4 % (45.0-75.0) Lymphocytes (%) (Auto) 31.2 % (20.0-45.0) Monocytes (%) (Auto) 13.6 % (1.0-10.0) H Eosinophils (%) (Auto) 4.1 % (0.0-3.0) H Basophils (%) (Auto) 0.7 % (0.0-2.0) Chemistry Test 01/10/17 05:55 Sodium Level 141 mEQ/L (135-145) Potassium Level 4.4 mEQ/L (3.4-4.9) Chloride Level 103 mEQ/L (98-107) Carbon Dioxide Level 29 mEQ/L (20-30) Anion Gap 9 (5-15) Blood Urea Nitrogen 5 mg/dL (7-23) L Creatinine 0.8 mg/dL (0.7-1.2) Estimat Glomerular Filtration Rate mL/min (>60) Glucose Level 103 mg/dL (74-106) Calcium Level 9.1 mg/dL (8.6-10.2) Studies Pre-op Studies: EKG - sr Risk Assessment & Plan Plan: general Status Change Before Surgery: No Pre-Antibiotics Drug: ancef Given Within 1 Hr of Incision: Yes Time Given: 15:00 AUGUSTUS FENTON CRNA Jan 10, 2017 18:14
[2017-01-10] MEDS ORDERED: LORazepam Inj 2mg/ml 1ml IV ONE (18:15)
[2017-01-10] MEDS ORDERED: fentaNYL 100 mcg/2 mL IV PRN (18:15)
[2017-01-10] MEDS ORDERED: Hydromorphone 0.5mg/0.5ml inj IVP PRN (18:15)
--- NOTE | 2017-01-10 18:21 | Infectious Diseases Prog Note ---
Assessment/Plan Assessment/Plan ASSESSMENT: Probable UTI - UCx mixed GP Afebrile without leukocytosis Acute right distal femoral neck fracture - SP ELIZABETH 01/10 Syncope Rhabdomyolysis NKDA Full Code PLAN: Cont ancef per SCIP f/u final cultures monitor CBC, temperatures monitor BMP PT/OT Subjective Allergies: Coded Allergies: No Known Allergies (Unverified , 01/06/17) Subjective remains afebrile on ancef SCIP SP right ELIZABETH Objective Vital Signs Last 24 Hour Vital Signs Date Time Temp Pulse Resp B/P (MAP) Pulse Ox O2 Delivery O2 Flow Rate FiO2 01/10/17 18:10 78 14 100 01/10/17 11:35 97.8 72 20 131/72 99 Room Air 01/10/17 08:25 97.6 66 20 144/82 97 Room Air 01/10/17 04:00 97.8 77 18 149/77 98 Room Air 01/10/17 00:00 98.2 75 19 144/71 97 Room Air 01/09/17 20:00 98.0 74 19 142/79 98 Room Air Height (Feet): 6 Height (Inches): 4.00 Weight (Pounds): 196 General Appearance: no acute distress Respiratory/Chest: no respiratory distress Cardiovascular: normal rate, regular rhythm Abdomen: normal bowel sounds, soft, non tender, non distended Laboratory Tests Test 01/10/17 05:55 White Blood Count 6.0 K/UL (4.8-10.8) Red Blood Count 4.24 M/UL (4.70-6.10) L Hemoglobin 11.2 G/DL (14.2-18.0) L Hematocrit 36.2 % (42.0-52.0) L Mean Corpuscular Volume 85 FL (80-99) Mean Corpuscular Hemoglobin 26.5 PG (27.0-31.0) L Mean Corpuscular Hemoglobin Concent 31.0 G/DL (32.0-36.0) L Red Cell Distribution Width 12.5 % (11.6-14.8) Platelet Count 164 K/UL (150-450) Mean Platelet Volume 8.5 FL (6.5-10.1) Neutrophils (%) (Auto) 50.4 % (45.0-75.0) Lymphocytes (%) (Auto) 31.2 % (20.0-45.0) Monocytes (%) (Auto) 13.6 % (1.0-10.0) H Eosinophils (%) (Auto) 4.1 % (0.0-3.0) H Basophils (%) (Auto) 0.7 % (0.0-2.0) Sodium Level 141 mEQ/L (135-145) Potassium Level 4.4 mEQ/L (3.4-4.9) Chloride Level 103 mEQ/L (98-107) Carbon Dioxide Level 29 mEQ/L (20-30) Anion Gap 9 (5-15) Blood Urea Nitrogen 5 mg/dL (7-23) L Creatinine 0.8 mg/dL (0.7-1.2) Estimat Glomerular Filtration Rate mL/min (>60) Glucose Level 103 mg/dL (74-106) Calcium Level 9.1 mg/dL (8.6-10.2) Current Medications Medications (Trade) Dose Ordered Sig/Neri Route PRN Reason Start Time Stop Time Status Last Admin Dose Admin Acetaminophen (Tylenol) 650 mg Q6H PRN ORAL Mild Pain/Temp > 100.5 01/07/17 16:30 02/05/17 16:29 Acetaminophen/ Hydrocodone Bitart ([place] 5/325) 1 tab Q6H PRN ORAL Severe Pain (Pain Scale 7-10) 01/07/17 17:00 01/13/17 16:59 01/09/17 08:50 Acetaminophen/ Hydrocodone Bitart ([place] 5/325) 2 tab Q6H PRN ORAL Severe Pain (Pain Scale 7-10) 01/10/17 16:15 01/17/17 16:14 UNV Acetaminophen/ Hydrocodone Bitart ([place] 7.5/325) 1 ea Q4H PRN ORAL Moderate Pain (Pain Scale 4-6) 01/10/17 16:15 01/17/17 16:14 UNV Cefazolin Sodium 2 gm/Dextrose 110 ml @ 220 mls/hr EVERY 8 HOURS IV 01/10/17 22:00 01/11/17 06:29 UNV Dextrose (Dextrose 50%) STAT PRN IV Hypoglycemia 01/07/17 16:30 02/06/17 16:29 Dextrose/ Electrolytes 1,000 ml @ 75 mls/hr [id number] IV 01/10/17 16:10 02/09/17 16:09 UNV Dextrose/Sodium Chloride 1,000 ml @ 75 mls/hr [id number] IV 01/07/17 16:30 02/05/17 16:29 01/10/17 11:32 Docusate Sodium (Colace) 100 mg THREE TIMES A DAY ORAL 01/10/17 18:00 02/09/17 17:59 UNV Fentanyl Citrate (Sublimaze 100 mcg/2 mL) 25 mcg Q10M PRN IV Moderate Pain (Pain Scale 4-6) 01/10/17 18:15 UNV Heparin Sodium (Porcine) (Heparin 5000 units/ml) 5,000 units EVERY 12 HOURS SUBQ 01/07/17 21:00 02/05/17 08:59 01/09/17 21:25 Hydromorphone HCl (Dilaudid) 0.5 mg Q15M PRN IVP Severe Pain (Pain Scale 7-10) 01/10/17 18:15 UNV Lorazepam (Ativan 2mg/ml 1ml) 2 mg ONCE ONCE IV 01/10/17 18:15 01/10/17 18:16 UNV Magnesium Hydroxide (Mom) 30 ml DAILYPRN PRN ORAL Constipation 01/10/17 16:15 02/09/17 16:14 UNV Metoclopramide HCl (Reglan) 10 mg Q1H PRN IVP Nausea & Vomiting 01/10/17 18:15 UNV Metoclopramide HCl (Reglan) 10 mg Q6HR PRN IVP Nausea & Vomiting 01/10/17 16:15 02/09/17 16:14 UNV Morphine Sulfate (Morphine Sulfate) 1 mg Q3H PRN IVP Pain scale 1-3 01/10/17 16:15 01/17/17 16:14 UNV Morphine Sulfate (Morphine Sulfate) 2 mg Q3H PRN IVP Moderate Pain (Pain Scale 4-6) 01/10/17 16:15 01/17/17 16:14 UNV Ondansetron HCl (Zofran) 4 mg Q1H PRN IVP Nausea & Vomiting 01/10/17 18:15 UNV Ondansetron HCl (Zofran) 4 mg Q6HR PRN IVP Nausea & Vomiting 01/10/17 16:15 02/09/17 16:14 UNV Temazepam (Restoril) 7.5 mg DAILY PRN ORAL Insomnia 01/10/17 16:15 01/17/17 16:14 CARLOZ ANSARI Jan 10, 2017 18:21
--- NOTE | 2017-01-10 19:07 | 48 Hour Post Anesthesia Eval ---
Post Anesthesia Evaluation Procedure: right hip lefty arthroplasty Date of Evaluation: Jan 10, 2017 Time of Evaluation: 17:47 Blood Pressure Systolic: 144 0: 88 Pulse Rate: 71 Respiratory Rate: 17 Temperature (Fahrenheit): 98.6 O2 Sat by Pulse Oximetry: 99 Airway: patent Nausea: No Vomiting: No Pain Intensity: 2 Hydration Status: adequate Cardiopulmonary Status: Stable Mental Status/LOC: patient returned to baseline Follow-up Care/Observations: 0 Post-Anesthesia Complications: 0 David Tripathi MD Jan 10, 2017 19:07
--- NOTE | 2017-01-10 19:45 | Cardiology Progress Note ---
Assessment/Plan Assessment/Plan 1. Syncopal fall, possibly volume related. 2. Rhabdomyolysis. 3. Thrombocytopenia. 4. Vitamin B12 insufficiency 5. femoral neck fracture had hip surgery is still under effect of sedative but looks comfortable vital are fien exam is unremarkable Subjective ROS Limited/Unobtainable: Yes Subjective sleepy just gut back to room from or adn rr Objective Last 24 Hour Vital Signs Date Time Temp Pulse Resp B/P (MAP) Pulse Ox O2 Delivery O2 Flow Rate FiO2 01/10/17 19:07 71 17 99 01/10/17 18:50 71 17 144/88 99 Nasal Cannula 3.0 01/10/17 18:35 71 18 159/84 99 Nasal Cannula 3.0 01/10/17 18:23 72 19 163/81 99 Simple Mask 6.0 01/10/17 18:15 74 20 170/87 99 Simple Mask 6.0 01/10/17 18:10 78 14 100 01/10/17 18:05 75 21 170/89 100 Simple Mask 6.0 01/10/17 18:00 75 21 168/81 99 Simple Mask 6.0 01/10/17 17:55 97.1 75 17 172/83 99 Simple Mask 6.0 01/10/17 11:35 97.8 72 20 131/72 99 Room Air 01/10/17 08:25 97.6 66 20 144/82 97 Room Air 01/10/17 04:00 97.8 77 18 149/77 98 Room Air 01/10/17 00:00 98.2 75 19 144/71 97 Room Air 01/09/17 20:00 98.0 74 19 142/79 98 Room Air General Appearance: no apparent distress, other - sleeping Neck: supple Cardiovascular: normal rate, regular rhythm Respiratory/Chest: lungs clear - ant Abdomen: normal bowel sounds, non tender, soft Extremities: no swelling Intake and Output 01/10/17 01/11/17 19:00 07:00 Intake Total 1575 ml Output Total 800 ml Balance 775 ml Intake Oral 0 ml IV Total 1575 ml Output Urine Total 600 ml Estimated Blood Loss 200 ml Laboratory Tests Test 01/10/17 05:55 White Blood Count 6.0 K/UL (4.8-10.8) Red Blood Count 4.24 M/UL (4.70-6.10) L Hemoglobin 11.2 G/DL (14.2-18.0) L Hematocrit 36.2 % (42.0-52.0) L Mean Corpuscular Volume 85 FL (80-99) Mean Corpuscular Hemoglobin 26.5 PG (27.0-31.0) L Mean Corpuscular Hemoglobin Concent 31.0 G/DL (32.0-36.0) L Red Cell Distribution Width 12.5 % (11.6-14.8) Platelet Count 164 K/UL (150-450) Mean Platelet Volume 8.5 FL (6.5-10.1) Neutrophils (%) (Auto) 50.4 % (45.0-75.0) Lymphocytes (%) (Auto) 31.2 % (20.0-45.0) Monocytes (%) (Auto) 13.6 % (1.0-10.0) H Eosinophils (%) (Auto) 4.1 % (0.0-3.0) H Basophils (%) (Auto) 0.7 % (0.0-2.0) Sodium Level 141 mEQ/L (135-145) Potassium Level 4.4 mEQ/L (3.4-4.9) Chloride Level 103 mEQ/L (98-107) Carbon Dioxide Level 29 mEQ/L (20-30) Anion Gap 9 (5-15) Blood Urea Nitrogen 5 mg/dL (7-23) L Creatinine 0.8 mg/dL (0.7-1.2) Estimat Glomerular Filtration Rate mL/min (>60) Glucose Level 103 mg/dL (74-106) Calcium Level 9.1 mg/dL (8.6-10.2) JOSH LITTLE Jan 10, 2017 19:45
[2017-01-10] MEDS: Docusate 100mg cap ORAL SCH (21:00)
[2017-01-10] MEDS: D5 1/2NS w/KCl 20mEq 1,000 ML IV SCH (21:57)
[2017-01-10] MEDS: ceFAZolin sod 2 GM in D5W 110 ML IV SCH (22:34)
[2017-01-11] VITALS: BP 140/66
--- NOTE | 2017-01-11 00:15 | Consultation ---
DATE OF CONSULTATION: 01/09/2017 CONSULTING PHYSICIAN: Ranjan Santos M.D. REQUESTING PHYSICIAN: Satnam Cunha M.D. CHIEF COMPLAINT: Right hip pain. History Of Present Illness: The patient is a 76-year-old gentleman, who was diagnosed with rhabdomyolysis. He was transferred from [facility] where he was also diagnosed with right femoral neck fracture. He has been here at [facility] addressing his rhabdomyolysis. Orthopedic consultation was obtained for further care and recommendation regarding right hip. PAST MEDICAL HISTORY: None listed. PAST SURGICAL HISTORY: Right knee surgery. MEDICATIONS: Reviewed from the intake chart. ALLERGIES: None. Social History: The patient lives at home, single. Does not smoke. Does not drink. FAMILY HISTORY: Noncontributory. PHYSICAL EXAMINATION: General: The patient is alert and oriented. He is resting comfortable at this time in bed. VITAL SIGNS: Afebrile. Stable vital signs. ABDOMEN: Soft. Extremities: Right hip examination shows it is short, internally rotated. He has pain with internal and external rotation. Negative heel strike. Posterior calf is soft. Neurovascular is normal. Dorsalis pedis +2. Laboratory And Diagnostic Data: Imaging study showed a right displaced femoral neck fracture. Discussion: At this point, we will go ahead and proceed with the right hip hemiarthroplasty. Risks, limitations, expectations, and complications of surgery were discussed in detail with his daughter. All questions were addressed. At this point, he is medically optimized. Based on the consultations provided, we will proceed with surgery tomorrow. Ranjan Santos M.D. DR: YARED JOB#: [id number] CC:
[2017-01-11] MEDS: D5 1/2NS 1,000 ML IV SCH ×2 (00:30→12:05)
[2017-01-11 04:00] VITALS: BP 143/68
[2017-01-11] MEDS: ceFAZolin sod 2 GM in D5W 110 ML IV SCH (05:13)
--- NOTE | 2017-01-11 05:45 | Operative Note - Dictated ---
DATE OF OPERATION: 01/10/2017 PREOPERATIVE DIAGNOSIS: Right femoral neck fracture. POSTOPERATIVE DIAGNOSIS: Right femoral neck fracture. PROCEDURE: Right hip hemiarthroplasty. SURGEON: Ranjan Santos M.D. ANESTHESIA: General. Indication For Procedure: The patient is a pleasant gentleman who sustained a mechanical fall, was diagnosed with right femoral neck fracture, is indicative of operative fixation with right hip hemiarthroplasty. Risks, limitations, expectations, and complications were discussed with his daughter regarding leg length discrepancy, instability, infection, risk of anesthesia, medical complications, etc. All questions were addressed. Description Of Procedure: Informed consent was obtained. The patient was brought to the operating room and placed supine under general anesthesia. The patient's Kim catheter was placed. The patient was then carefully placed in the lateral decubitus position. The right hip was prepped and draped in a sterile manner. Posterolateral skin incision was then made. Fascia rosario was incised. Piriformis and short external rotator were teed. Capsule was teed and tagged with #2 FiberWire. A suture neck cut below the fracture site was made. The guidewire was removed, measured 53 mm. Sequential broaching up to 16 was performed. A 16-0 head-neck combo was selected. Hip was reduced, flexed to 120 degrees, 90 degrees flexion, and internal rotation of 60. Extension and external rotation were stable. Leg lengths appeared to be clinically equal. Implants were impacted into place. The capsule was reapproximated with 2 drill holes to the greater trochanter. Fascia rosario was approximated with #1 Vicryl suture, 2-0 Vicryl suture, and 3-0 Monocryl sutures. Dermabond and compression dressing was applied. The patient was awoken and taken to recovery with stable vital signs. ESTIMATED BLOOD LOSS: 50 mL. COMPLICATIONS: None. Specimens: Include femoral head implants, include a Consensus size 16 femoral stem with a 53 bipolar head. Ranjan Santos M.D. DR: POLLO JOB#: [id number] CC:
[2017-01-11 07:07] LABS: BASOPHILS % (AUTO) 0.4 % (0.0-2.0); EOSINOPHILS % (AUTO) 0.8 % (0.0-3.0); LYMPHOCYTES % (AUTO) 11.1 % (20.0-45.0); MEAN CORPUSCULAR HEMOGLOBIN 26.7 PG (27.0-31.0); MEAN CORPUSCULAR HGB CONC 31.2 G/DL (32.0-36.0); MEAN CORPUSCULAR VOLUME 86 FL (80-99); MEAN PLATELET VOLUME 7.5 FL (6.5-10.1); MONOCYTES % (AUTO) 9.5 % (1.0-10.0); NEUTROPHILS % (AUTO) 78.4 % (45.0-75.0); PLATELET COUNT 171 K/UL (150-450); RED CELL DISTRIBUTION WIDTH 12.7 % (11.6-14.8); WHITE BLOOD COUNT 6.8 K/UL (4.8-10.8)
[2017-01-11 07:25] LABS: ANION GAP 5 (5-15); CALCIUM 8.3 mg/dL (8.6-10.2); CARBON DIOXIDE 30 mEQ/L (20-30); CHLORIDE 105 mEQ/L (98-107); CREATININE 0.8 mg/dL (0.7-1.2); HEMOLYSIS 1; POTASSIUM 4.9 mEQ/L (3.4-4.9); SODIUM 140 mEQ/L (135-145)
[2017-01-11 08:00] VITALS: BP 114/60
[2017-01-11] MEDS: Heparin 5000 units/ml inj SUBQ SCH ×2 (08:18→20:48)
[2017-01-11] MEDS: Docusate 100mg cap ORAL SCH ×3 (08:37→18:02)
--- NOTE | 2017-01-11 09:35 | Diagnostic Imaging Report ---
Indication: Postoperative pain Technique: XRAY PELVIS 1 VIEW Comparison: None Findings: There is a right hip hemiarthroplasty in satisfactory alignment. Operative soft tissue changes of the right hip are noted. Degenerative changes of the left hip are seen. Degenerative changes of the partially visualized spine are noted. Impression: Status post right hip hemiarthroplasty.
--- NOTE | 2017-01-11 10:00 | Infectious Diseases Prog Note ---
Assessment/Plan Assessment/Plan Assymptomatic bacteriuria - UCx mixed GP -u/a with significant pyuria Afebrile without leukocytosis Acute right distal femoral neck fracture - SP ELIZABETH 01/10 Syncope Rhabdomyolysis NKDA Full Code PLAN: -Continue to monitor off abx -s/p 2 doses of Ancef 01/11 -s/p 3 d Ceftriaxone 01/08 monitor CBC, temperatures monitor BMP PT/OT Discused with family at bedside Subjective Allergies: Coded Allergies: No Known Allergies (Unverified , 01/06/17) Subjective afebrile, VSS s/p S/P right hip hemiarthroplasty on Fri01/10/17 Ucx mixed grasm positive growth now off abx Objective Vital Signs Last 24 Hour Vital Signs Date Time Temp Pulse Resp B/P (MAP) Pulse Ox O2 Delivery O2 Flow Rate FiO2 01/11/17 08:00 97.5 65 15 114/60 98 Nasal Cannula 3.0 01/11/17 04:00 96.9 71 18 143/68 95 Nasal Cannula 3.0 01/11/17 00:00 96.6 70 18 140/66 94 Nasal Cannula 3.0 01/10/17 20:00 97.9 69 18 140/76 97 Nasal Cannula 3.0 01/10/17 19:07 71 17 99 01/10/17 19:05 98.0 72 15 155/86 99 Nasal Cannula 3.0 01/10/17 18:50 71 17 144/88 99 Nasal Cannula 3.0 01/10/17 18:35 71 18 159/84 99 Nasal Cannula 3.0 01/10/17 18:23 72 19 163/81 99 Simple Mask 6.0 01/10/17 18:15 74 20 170/87 99 Simple Mask 6.0 01/10/17 18:10 78 14 100 01/10/17 18:05 75 21 170/89 100 Simple Mask 6.0 01/10/17 18:00 75 21 168/81 99 Simple Mask 6.0 01/10/17 17:55 97.1 75 17 172/83 99 Simple Mask 6.0 01/10/17 11:35 97.8 72 20 131/72 99 Room Air Height (Feet): 6 Height (Inches): 4.00 Weight (Pounds): 196 Objective General Appearance: no acute distress Respiratory/Chest: no respiratory distress Cardiovascular: normal rate, regular rhythm Abdomen: normal bowel sounds, soft, non tender, non distended reviewed Laboratory Tests Test 01/11/17 05:45 White Blood Count 6.8 K/UL (4.8-10.8) Red Blood Count 3.90 M/UL (4.70-6.10) L Hemoglobin 10.4 G/DL (14.2-18.0) L Hematocrit 33.4 % (42.0-52.0) L Mean Corpuscular Volume 86 FL (80-99) Mean Corpuscular Hemoglobin 26.7 PG (27.0-31.0) L Mean Corpuscular Hemoglobin Concent 31.2 G/DL (32.0-36.0) L Red Cell Distribution Width 12.7 % (11.6-14.8) Platelet Count 171 K/UL (150-450) Mean Platelet Volume 7.5 FL (6.5-10.1) Neutrophils (%) (Auto) 78.4 % (45.0-75.0) H Lymphocytes (%) (Auto) 11.1 % (20.0-45.0) L Monocytes (%) (Auto) 9.5 % (1.0-10.0) Eosinophils (%) (Auto) 0.8 % (0.0-3.0) Basophils (%) (Auto) 0.4 % (0.0-2.0) Sodium Level 140 mEQ/L (135-145) Potassium Level 4.9 mEQ/L (3.4-4.9) Chloride Level 105 mEQ/L (98-107) Carbon Dioxide Level 30 mEQ/L (20-30) Anion Gap 5 (5-15) Blood Urea Nitrogen 9 mg/dL (7-23) Creatinine 0.8 mg/dL (0.7-1.2) Estimat Glomerular Filtration Rate mL/min (>60) Glucose Level 134 mg/dL (74-106) H Calcium Level 8.3 mg/dL (8.6-10.2) L Total Creatine Kinase 334 U/L (38-174) H Current Medications Medications (Trade) Dose Ordered Sig/Neri Route PRN Reason Start Time Stop Time Status Last Admin Dose Admin Acetaminophen (Tylenol) 650 mg Q6H PRN ORAL Mild Pain/Temp > 100.5 01/07/17 16:30 02/05/17 16:29 Acetaminophen/ Hydrocodone Bitart ([place] 5/325) 1 tab Q6H PRN ORAL Severe Pain (Pain Scale 7-10) 01/07/17 17:00 01/13/17 16:59 01/09/17 08:50 Acetaminophen/ Hydrocodone Bitart ([place] 5/325) 2 tab Q6H PRN ORAL Severe Pain (Pain Scale 7-10) 01/10/17 16:15 01/17/17 16:14 Acetaminophen/ Hydrocodone Bitart ([place] 7.5/325) 1 ea Q4H PRN ORAL Moderate Pain (Pain Scale 4-6) 01/10/17 16:15 01/17/17 16:14 Dextrose (Dextrose 50%) STAT PRN IV Hypoglycemia 01/07/17 16:30 02/06/17 16:29 Dextrose/ Electrolytes 1,000 ml @ 75 mls/hr [id number] IV 01/10/17 21:00 02/09/17 20:59 01/10/17 21:57 Dextrose/Sodium Chloride 1,000 ml @ 75 mls/hr [id number] IV 01/07/17 16:30 02/05/17 16:29 01/10/17 11:32 Docusate Sodium (Colace) 100 mg THREE TIMES A DAY ORAL 01/10/17 21:00 02/09/17 20:59 01/11/17 08:37 Heparin Sodium (Porcine) (Heparin 5000 units/ml) 5,000 units EVERY 12 HOURS SUBQ 01/07/17 21:00 02/05/17 08:59 01/09/17 21:25 Magnesium Hydroxide (Mom) 30 ml DAILYPRN PRN ORAL Constipation 01/10/17 16:15 02/09/17 16:14 Metoclopramide HCl (Reglan) 10 mg Q6HR PRN IVP Nausea & Vomiting 01/10/17 16:15 02/09/17 16:14 Morphine Sulfate (Morphine Sulfate) 1 mg Q3H PRN IVP Pain scale 1-3 01/10/17 16:15 01/17/17 16:14 Morphine Sulfate (Morphine Sulfate) 2 mg Q3H PRN IVP Moderate Pain (Pain Scale 4-6) 01/10/17 16:15 01/17/17 16:14 Ondansetron HCl (Zofran) 4 mg Q6HR PRN IVP Nausea & Vomiting 01/10/17 16:15 02/09/17 16:14 Temazepam (Restoril) 7.5 mg DAILY PRN ORAL Insomnia 01/10/17 16:15 01/17/17 16:14 Ellen Landers M.D. Jan 11, 2017 10:00
[2017-01-11] MEDS: D5 1/2NS w/KCl 20mEq 1,000 ML IV SCH (10:20)
--- NOTE | 2017-01-11 10:23 | Pulmonology Progress Note ---
Assessment/Plan Assessment/Plan ASSESSMENT acute toxic metabolic encephalopathy-resolved syncopal episode with fall rhabdo ( likely due to prolonged immobilization) posttraumatic R hip pain R distal femoral neck fracture s/p 01/10 Right hip hemiarthroplasty. vitamin B 12 deficiency PLAN OF CARE [facility] floor neuro follows MRI brain no acute changes, but + chronic age related changes Carotid Duplex essentially negative ECHO with pEF 55-60% and RVSP of 22 cardio follows orthostatic VS no evidence of orthostatic changes IVF CK downtrending monitor renal parameters, lytes , stable X ray R hip c/w R hip fracture ortho surgery follows cardio clearance given for surgery s/p surgery 01/10 pain management PT/OT fall precautions DVT prophylaxis rib X ray no fx ID follows, off abx, no evidence of UTI s/p one dose vitamin B12 IM x 1 case discussed and evaluated by supervising physician Subjective Allergies: Coded Allergies: No Known Allergies (Unverified , 01/06/17) Subjective denies chest pain, SOB s/p surgery 01/10 Objective Last 24 Hour Vital Signs Date Time Temp Pulse Resp B/P (MAP) Pulse Ox O2 Delivery O2 Flow Rate FiO2 01/11/17 08:00 97.5 65 15 114/60 98 Nasal Cannula 3.0 01/11/17 04:00 96.9 71 18 143/68 95 Nasal Cannula 3.0 01/11/17 00:00 96.6 70 18 140/66 94 Nasal Cannula 3.0 01/10/17 20:00 97.9 69 18 140/76 97 Nasal Cannula 3.0 01/10/17 19:07 71 17 99 01/10/17 19:05 98.0 72 15 155/86 99 Nasal Cannula 3.0 01/10/17 18:50 71 17 144/88 99 Nasal Cannula 3.0 01/10/17 18:35 71 18 159/84 99 Nasal Cannula 3.0 01/10/17 18:23 72 19 163/81 99 Simple Mask 6.0 01/10/17 18:15 74 20 170/87 99 Simple Mask 6.0 01/10/17 18:10 78 14 100 01/10/17 18:05 75 21 170/89 100 Simple Mask 6.0 01/10/17 18:00 75 21 168/81 99 Simple Mask 6.0 01/10/17 17:55 97.1 75 17 172/83 99 Simple Mask 6.0 01/10/17 11:35 97.8 72 20 131/72 99 Room Air Intake and Output 01/11/17 01/12/17 19:00 07:00 Intake Total 150 ml Balance 150 ml IV Total 150 ml Objective General Appearance: no acute distress HEENT: normocephalic, atraumatic, anicteric Respiratory/Chest: lungs clear, no respiratory distress, no accessory muscle use Cardiovascular: normal rate, regular rhythm, no JVD Abdomen: normal bowel sounds, soft, non tender, non distended Skin: dressing R hip intact Genitourinary: normal external genitalia Extremities: no edema, pedal pulses normal Neurologic/Psychiatric: abnormal gait, alert, responsive Laboratory Tests 01/11/17 05:45: White Blood Count 6.8, Red Blood Count 3.90L, Hemoglobin 10.4L, Hematocrit 33.4L , Mean Corpuscular Volume 86, Mean Corpuscular Hemoglobin 26.7L, Mean Corpuscular Hemoglobin Concent 31.2L, Red Cell Distribution Width 12.7, Platelet Count 171, Mean Platelet Volume 7.5, Neutrophils (%) (Auto) 78.4H, Lymphocytes (%) (Auto) 11.1L, Monocytes (%) (Auto) 9.5, Eosinophils (%) (Auto) 0.8, Basophils (%) (Auto) 0.4, Sodium Level 140, Potassium Level 4.9, Chloride Level 105, Carbon Dioxide Level 30, Anion Gap 5, Blood Urea Nitrogen 9, Creatinine 0.8, Estimat Glomerular Filtration Rate , Glucose Level 134H, Calcium Level 8.3L, Total Creatine Kinase 334H Current Medications Medications (Trade) Dose Ordered Sig/Neri Route PRN Reason Start Time Stop Time Status Last Admin Dose Admin Acetaminophen (Tylenol) 650 mg Q6H PRN ORAL Mild Pain/Temp > 100.5 01/07/17 16:30 02/05/17 16:29 Acetaminophen/ Hydrocodone Bitart ([place] 5/325) 1 tab Q6H PRN ORAL Severe Pain (Pain Scale 7-10) 01/07/17 17:00 01/13/17 16:59 01/09/17 08:50 Acetaminophen/ Hydrocodone Bitart ([place] 5/325) 2 tab Q6H PRN ORAL Severe Pain (Pain Scale 7-10) 01/10/17 16:15 01/17/17 16:14 Acetaminophen/ Hydrocodone Bitart ([place] 7.5/325) 1 ea Q4H PRN ORAL Moderate Pain (Pain Scale 4-6) 01/10/17 16:15 01/17/17 16:14 Dextrose (Dextrose 50%) STAT PRN IV Hypoglycemia 01/07/17 16:30 02/06/17 16:29 Dextrose/ Electrolytes 1,000 ml @ 75 mls/hr [id number] IV 01/10/17 21:00 02/09/17 20:59 01/10/17 21:57 Dextrose/Sodium Chloride 1,000 ml @ 75 mls/hr [id number] IV 01/07/17 16:30 02/05/17 16:29 01/10/17 11:32 Docusate Sodium (Colace) 100 mg THREE TIMES A DAY ORAL 01/10/17 21:00 02/09/17 20:59 01/11/17 08:37 Heparin Sodium (Porcine) (Heparin 5000 units/ml) 5,000 units EVERY 12 HOURS SUBQ 01/07/17 21:00 02/05/17 08:59 01/09/17 21:25 Magnesium Hydroxide (Mom) 30 ml DAILYPRN PRN ORAL Constipation 01/10/17 16:15 02/09/17 16:14 Metoclopramide HCl (Reglan) 10 mg Q6HR PRN IVP Nausea & Vomiting 01/10/17 16:15 02/09/17 16:14 Morphine Sulfate (Morphine Sulfate) 1 mg Q3H PRN IVP Pain scale 1-3 01/10/17 16:15 01/17/17 16:14 Morphine Sulfate (Morphine Sulfate) 2 mg Q3H PRN IVP Moderate Pain (Pain Scale 4-6) 01/10/17 16:15 01/17/17 16:14 Ondansetron HCl (Zofran) 4 mg Q6HR PRN IVP Nausea & Vomiting 01/10/17 16:15 02/09/17 16:14 Temazepam (Restoril) 7.5 mg DAILY PRN ORAL Insomnia 01/10/17 16:15 01/17/17 16:14 Mine Holcomb NP ([place]) Jan 11, 2017 10:23
[2017-01-11] MEDS ORDERED: D5 1/2NS 1000ml IV ONE (10:37)
[2017-01-11] MEDS ORDERED: Tubing IV Secondary IV ONE (10:39)
[2017-01-11 12:00] VITALS: BP 120/64
--- NOTE | 2017-01-11 15:18 | Internal Med Progress Note ---
Subjective Date of Service: Jan 11, 2017 Physician Name CarrollNettie Attending Physician Satnam Cunha MD Current Medications Medications (Trade) Dose Ordered Sig/Neri Route PRN Reason Start Time Stop Time Status Last Admin Dose Admin Acetaminophen (Tylenol) 650 mg Q6H PRN ORAL Mild Pain/Temp > 100.5 01/07/17 16:30 02/05/17 16:29 Acetaminophen/ Hydrocodone Bitart ([place] 5/325) 1 tab Q6H PRN ORAL Severe Pain (Pain Scale 7-10) 01/07/17 17:00 01/13/17 16:59 01/09/17 08:50 Acetaminophen/ Hydrocodone Bitart ([place] 5/325) 2 tab Q6H PRN ORAL Severe Pain (Pain Scale 7-10) 01/10/17 16:15 01/17/17 16:14 Acetaminophen/ Hydrocodone Bitart ([place] 7.5/325) 1 ea Q4H PRN ORAL Moderate Pain (Pain Scale 4-6) 01/10/17 16:15 01/17/17 16:14 01/11/17 13:13 Dextrose (Dextrose 50%) STAT PRN IV Hypoglycemia 01/07/17 16:30 02/06/17 16:29 Dextrose/Sodium Chloride 1,000 ml @ 75 mls/hr [id number] IV 01/07/17 16:30 02/05/17 16:29 01/11/17 12:05 Docusate Sodium (Colace) 100 mg THREE TIMES A DAY ORAL 01/10/17 21:00 02/09/17 20:59 01/11/17 12:05 Heparin Sodium (Porcine) (Heparin 5000 units/ml) 5,000 units EVERY 12 HOURS SUBQ 01/07/17 21:00 02/05/17 08:59 01/09/17 21:25 Magnesium Hydroxide (Mom) 30 ml DAILYPRN PRN ORAL Constipation 01/10/17 16:15 02/09/17 16:14 Metoclopramide HCl (Reglan) 10 mg Q6HR PRN IVP Nausea & Vomiting 01/10/17 16:15 02/09/17 16:14 Morphine Sulfate (Morphine Sulfate) 1 mg Q3H PRN IVP Pain scale 1-3 01/10/17 16:15 01/17/17 16:14 Morphine Sulfate (Morphine Sulfate) 2 mg Q3H PRN IVP Moderate Pain (Pain Scale 4-6) 01/10/17 16:15 01/17/17 16:14 Ondansetron HCl (Zofran) 4 mg Q6HR PRN IVP Nausea & Vomiting 01/10/17 16:15 02/09/17 16:14 Temazepam (Restoril) 7.5 mg DAILY PRN ORAL Insomnia 01/10/17 16:15 01/17/17 16:14 Allergies: Coded Allergies: No Known Allergies (Unverified , 01/06/17) ROS Limited/Unobtainable: No Constitutional: Reports: no symptoms HEENT: Reports: no symptoms Cardiovascular: Reports: no symptoms Respiratory: Reports: no symptoms Gastrointestinal/Abdominal: Reports: no symptoms Genitourinary: Reports: no symptoms Neurologic/Psychiatric: Reports: no symptoms Subjective 76 YO M admitted with gen weakness and rhabdomyolysis. Cover for Int Doe-Dr Cunha. S/P right hip hemiarthroplasty on Fri01/10/17. Objective Last Vital Signs Date Time Temp Pulse Resp B/P (MAP) Pulse Ox O2 Delivery O2 Flow Rate FiO2 01/11/17 12:00 97.0 75 16 120/64 93 Nasal Cannula 3.0 Laboratory Tests Test 01/11/17 05:45 White Blood Count 6.8 K/UL (4.8-10.8) Red Blood Count 3.90 M/UL (4.70-6.10) L Hemoglobin 10.4 G/DL (14.2-18.0) L Hematocrit 33.4 % (42.0-52.0) L Mean Corpuscular Volume 86 FL (80-99) Mean Corpuscular Hemoglobin 26.7 PG (27.0-31.0) L Mean Corpuscular Hemoglobin Concent 31.2 G/DL (32.0-36.0) L Red Cell Distribution Width 12.7 % (11.6-14.8) Platelet Count 171 K/UL (150-450) Mean Platelet Volume 7.5 FL (6.5-10.1) Neutrophils (%) (Auto) 78.4 % (45.0-75.0) H Lymphocytes (%) (Auto) 11.1 % (20.0-45.0) L Monocytes (%) (Auto) 9.5 % (1.0-10.0) Eosinophils (%) (Auto) 0.8 % (0.0-3.0) Basophils (%) (Auto) 0.4 % (0.0-2.0) Sodium Level 140 mEQ/L (135-145) Potassium Level 4.9 mEQ/L (3.4-4.9) Chloride Level 105 mEQ/L (98-107) Carbon Dioxide Level 30 mEQ/L (20-30) Anion Gap 5 (5-15) Blood Urea Nitrogen 9 mg/dL (7-23) Creatinine 0.8 mg/dL (0.7-1.2) Estimat Glomerular Filtration Rate mL/min (>60) Glucose Level 134 mg/dL (74-106) H Calcium Level 8.3 mg/dL (8.6-10.2) L Total Creatine Kinase 334 U/L (38-174) H Intake and Output 01/11/17 01/12/17 19:00 07:00 Intake Total 150 ml Balance 150 ml IV Total 150 ml Objective General Appearance: WD/WN, no apparent distress, alert EENT: PERRL/EOMI, normal ENT inspection, TMs normal Neck: non-tender, normal alignment, supple Cardiovascular: normal peripheral pulses, normal rate, regular rhythm, no gallop/murmur, no JVD Respiratory/Chest: chest wall non-tender, lungs clear, normal breath sounds, no respiratory distress, no accessory muscle use Abdomen: normal bowel sounds, non tender, soft, no organomegaly, no mass Extremities: other - right hip pain 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 See ID note. (4) Rhabdomyolysis Assessment & Plan: Follow CPK. Cont IV fluids. (5) Fracture of femoral neck, right Assessment & Plan: S/P right hip hemiarthroplasty on Fri01/10/17 Assessment/Plan Acute rehab NETTIE Powell Jan 11, 2017 15:18
[2017-01-11 16:00] VITALS: BP 120/60
--- NOTE | 2017-01-11 19:59 | Cardiology Progress Note ---
Assessment/Plan Assessment/Plan stable from cardiac standpoint will follow Subjective Subjective patient feels butter, has mild pain in operated area Objective Last 24 Hour Vital Signs Date Time Temp Pulse Resp B/P (MAP) Pulse Ox O2 Delivery O2 Flow Rate FiO2 01/11/17 16:00 97.9 75 16 120/60 98 Nasal Cannula 3.0 01/11/17 12:00 97.0 75 16 120/64 93 Nasal Cannula 3.0 01/11/17 08:00 97.5 65 15 114/60 98 Nasal Cannula 3.0 01/11/17 04:00 96.9 71 18 143/68 95 Nasal Cannula 3.0 01/11/17 00:00 96.6 70 18 140/66 94 Nasal Cannula 3.0 01/10/17 20:00 97.9 69 18 140/76 97 Nasal Cannula 3.0 General Appearance: no apparent distress, alert EENT: PERRL/EOMI Neck: supple Rhythm: NSR Cardiovascular: normal rate Respiratory/Chest: lungs clear Abdomen: soft Extremities: other - immobilised after srugery, feet are warm 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 Intake and Output 01/11/17 01/12/17 19:00 07:00 Intake Total 600 ml Balance 600 ml IV Total 600 ml # Voids 1 Laboratory Tests Test 01/11/17 05:45 White Blood Count 6.8 K/UL (4.8-10.8) Red Blood Count 3.90 M/UL (4.70-6.10) L Hemoglobin 10.4 G/DL (14.2-18.0) L Hematocrit 33.4 % (42.0-52.0) L Mean Corpuscular Volume 86 FL (80-99) Mean Corpuscular Hemoglobin 26.7 PG (27.0-31.0) L Mean Corpuscular Hemoglobin Concent 31.2 G/DL (32.0-36.0) L Red Cell Distribution Width 12.7 % (11.6-14.8) Platelet Count 171 K/UL (150-450) Mean Platelet Volume 7.5 FL (6.5-10.1) Neutrophils (%) (Auto) 78.4 % (45.0-75.0) H Lymphocytes (%) (Auto) 11.1 % (20.0-45.0) L Monocytes (%) (Auto) 9.5 % (1.0-10.0) Eosinophils (%) (Auto) 0.8 % (0.0-3.0) Basophils (%) (Auto) 0.4 % (0.0-2.0) Sodium Level 140 mEQ/L (135-145) Potassium Level 4.9 mEQ/L (3.4-4.9) Chloride Level 105 mEQ/L (98-107) Carbon Dioxide Level 30 mEQ/L (20-30) Anion Gap 5 (5-15) Blood Urea Nitrogen 9 mg/dL (7-23) Creatinine 0.8 mg/dL (0.7-1.2) Estimat Glomerular Filtration Rate mL/min (>60) Glucose Level 134 mg/dL (74-106) H Calcium Level 8.3 mg/dL (8.6-10.2) L Total Creatine Kinase 334 U/L (38-174) H LAVELLE SMALL Jan 11, 2017 19:59
[2017-01-11 20:00] VITALS: BP 112/60
[2017-01-12] VITALS: BP 123/70
[2017-01-12] MEDS: D5 1/2NS 1,000 ML IV SCH (02:01)
[2017-01-12 04:00] VITALS: BP 128/73
[2017-01-12 06:52] LABS: BASOPHILS % (AUTO) 0.4 % (0.0-2.0); EOSINOPHILS % (AUTO) 1.5 % (0.0-3.0); LYMPHOCYTES % (AUTO) 17.2 % (20.0-45.0); MEAN CORPUSCULAR HEMOGLOBIN 26.4 PG (27.0-31.0); MEAN CORPUSCULAR HGB CONC 31.3 G/DL (32.0-36.0); MEAN CORPUSCULAR VOLUME 84 FL (80-99); MEAN PLATELET VOLUME 7.2 FL (6.5-10.1); PLATELET COUNT 189 K/UL (150-450); RED BLOOD COUNT 3.67 M/UL (4.70-6.10); RED CELL DISTRIBUTION WIDTH 12.7 % (11.6-14.8); WHITE BLOOD COUNT 7.5 K/UL (4.8-10.8)
[2017-01-12 07:07] LABS: ANION GAP 12 (5-15); CALCIUM 8.4 mg/dL (8.6-10.2); CARBON DIOXIDE 25 mEQ/L (20-30); CHLORIDE 102 mEQ/L (98-107); CREATININE 0.7 mg/dL (0.7-1.2); HEMOLYSIS 0; POTASSIUM 4.1 mEQ/L (3.4-4.9); SODIUM 139 mEQ/L (135-145)
[2017-01-12 08:00] VITALS: BP 133/72
[2017-01-12] MEDS: Docusate 100mg cap ORAL SCH ×3 (08:16→17:46)
[2017-01-12] MEDS: Heparin 5000 units/ml inj SUBQ SCH ×2 (08:17→20:53)
[2017-01-12] MEDS ORDERED: D5 1/2NS 1000ml IV ONE ×2 (09:39)
--- NOTE | 2017-01-12 10:31 | Infectious Diseases Prog Note ---
Assessment/Plan Assessment/Plan A: Asymptomatic bacteruria Syncope Rhabdomyolysis NKDA Full Code PLAN: -Continue to monitor off abx Subjective ROS Limited/Unobtainable: No Constitutional: Reports: no symptoms Respiratory: Reports: no symptoms Cardiovascular: Reports: no symptoms Gastrointestinal/Abdominal: Reports: no symptoms Genitourinary: Reports: no symptoms Musculoskeletal: Reports: pain, other - in surgical site Allergies: Coded Allergies: No Known Allergies (Unverified , 01/06/17) Objective Vital Signs Last 24 Hour Vital Signs Date Time Temp Pulse Resp B/P (MAP) Pulse Ox O2 Delivery O2 Flow Rate FiO2 01/12/17 08:00 98.1 88 15 133/72 94 Room Air 01/12/17 04:00 97.3 80 20 128/73 94 Room Air 01/12/17 00:00 97.3 78 20 123/70 93 Room Air 01/11/17 20:00 97.5 76 20 112/60 95 Room Air 01/11/17 16:00 97.9 75 16 120/60 98 Nasal Cannula 3.0 01/11/17 12:00 97.0 75 16 120/64 93 Nasal Cannula 3.0 Height (Feet): 6 Height (Inches): 4.00 Weight (Pounds): 196 General Appearance: no acute distress HEENT: mucous membranes moist Respiratory/Chest: lungs clear Cardiovascular: normal peripheral pulses Abdomen: soft, non tender Extremities: no edema Neurologic/Psychiatric: alert, oriented x 3, responsive Laboratory Tests Test 01/12/17 04:50 White Blood Count 7.5 K/UL (4.8-10.8) Red Blood Count 3.67 M/UL (4.70-6.10) L Hemoglobin 9.7 G/DL (14.2-18.0) L Hematocrit 30.9 % (42.0-52.0) L Mean Corpuscular Volume 84 FL (80-99) Mean Corpuscular Hemoglobin 26.4 PG (27.0-31.0) L Mean Corpuscular Hemoglobin Concent 31.3 G/DL (32.0-36.0) L Red Cell Distribution Width 12.7 % (11.6-14.8) Platelet Count 189 K/UL (150-450) Mean Platelet Volume 7.2 FL (6.5-10.1) Neutrophils (%) (Auto) 71.0 % (45.0-75.0) Lymphocytes (%) (Auto) 17.2 % (20.0-45.0) L Monocytes (%) (Auto) 10.0 % (1.0-10.0) Eosinophils (%) (Auto) 1.5 % (0.0-3.0) Basophils (%) (Auto) 0.4 % (0.0-2.0) Sodium Level 139 mEQ/L (135-145) Potassium Level 4.1 mEQ/L (3.4-4.9) Chloride Level 102 mEQ/L (98-107) Carbon Dioxide Level 25 mEQ/L (20-30) Anion Gap 12 (5-15) Blood Urea Nitrogen 9 mg/dL (7-23) Creatinine 0.7 mg/dL (0.7-1.2) Estimat Glomerular Filtration Rate mL/min (>60) Glucose Level 112 mg/dL (74-106) H Calcium Level 8.4 mg/dL (8.6-10.2) L Current Medications Medications (Trade) Dose Ordered Sig/Neri Route PRN Reason Start Time Stop Time Status Last Admin Dose Admin Acetaminophen (Tylenol) 650 mg Q6H PRN ORAL Mild Pain/Temp > 100.5 01/07/17 16:30 02/05/17 16:29 Acetaminophen/ Hydrocodone Bitart ([place] 5/325) 1 tab Q6H PRN ORAL Severe Pain (Pain Scale 7-10) 01/07/17 17:00 01/13/17 16:59 01/09/17 08:50 Acetaminophen/ Hydrocodone Bitart ([place] 5/325) 2 tab Q6H PRN ORAL Severe Pain (Pain Scale 7-10) 01/10/17 16:15 01/17/17 16:14 Acetaminophen/ Hydrocodone Bitart ([place] 7.5/325) 1 ea Q4H PRN ORAL Moderate Pain (Pain Scale 4-6) 01/10/17 16:15 01/17/17 16:14 01/11/17 13:13 Dextrose (Dextrose 50%) STAT PRN IV Hypoglycemia 01/07/17 16:30 02/06/17 16:29 Dextrose/Sodium Chloride 1,000 ml @ 75 mls/hr [id number] IV 01/07/17 16:30 02/05/17 16:29 01/12/17 02:01 Docusate Sodium (Colace) 100 mg THREE TIMES A DAY ORAL 01/10/17 21:00 02/09/17 20:59 01/12/17 08:16 Heparin Sodium (Porcine) (Heparin 5000 units/ml) 5,000 units EVERY 12 HOURS SUBQ 01/07/17 21:00 02/05/17 08:59 01/12/17 08:17 Magnesium Hydroxide (Mom) 30 ml DAILYPRN PRN ORAL Constipation 01/10/17 16:15 02/09/17 16:14 Metoclopramide HCl (Reglan) 10 mg Q6HR PRN IVP Nausea & Vomiting 01/10/17 16:15 02/09/17 16:14 Morphine Sulfate (Morphine Sulfate) 1 mg Q3H PRN IVP Pain scale 1-3 01/10/17 16:15 01/17/17 16:14 Morphine Sulfate (Morphine Sulfate) 2 mg Q3H PRN IVP Moderate Pain (Pain Scale 4-6) 01/10/17 16:15 01/17/17 16:14 01/11/17 18:03 Ondansetron HCl (Zofran) 4 mg Q6HR PRN IVP Nausea & Vomiting 01/10/17 16:15 02/09/17 16:14 Temazepam (Restoril) 7.5 mg DAILY PRN ORAL Insomnia 01/10/17 16:15 01/17/17 16:14 BENTON GUERRA Jan 12, 2017 10:31
[2017-01-12 12:00] VITALS: BP 157/64
--- NOTE | 2017-01-12 12:23 | Pulmonology Progress Note ---
Assessment/Plan Assessment/Plan ASSESSMENT acute toxic metabolic encephalopathy-resolved syncopal episode with fall rhabdo ( likely due to prolonged immobilization) posttraumatic R hip pain R distal femoral neck fracture s/p 01/10 Right hip hemiarthroplasty. vitamin B 12 deficiency PLAN OF CARE [facility] floor neuro follows MRI brain no acute changes, but + chronic age related changes Carotid Duplex essentially negative ECHO with pEF 55-60% and RVSP of 22 cardio follows orthostatic VS no evidence of orthostatic changes IVF CK downtrending monitor renal parameters, lytes , stable X ray R hip c/w R hip fracture ortho surgery follows cardio clearance given for surgery s/p surgery 01/10 pain management PT/OT fall precautions DVT prophylaxis rib X ray no fx ID follows, off abx, no evidence of UTI s/p one dose vitamin B12 IM x 1 working with PT , ambulated dc plan as per PMD - home with HH services for PT vs short term rehab - per PT recommendations case discussed and evaluated by supervising physician Subjective Allergies: Coded Allergies: No Known Allergies (Unverified , 01/06/17) Subjective denies chest pain, SOB s/p surgery 01/10 working with PT, ambulated with assistive device Objective Last 24 Hour Vital Signs Date Time Temp Pulse Resp B/P (MAP) Pulse Ox O2 Delivery O2 Flow Rate FiO2 01/12/17 08:00 98.1 88 15 133/72 94 Room Air 01/12/17 04:00 97.3 80 20 128/73 94 Room Air 01/12/17 00:00 97.3 78 20 123/70 93 Room Air 01/11/17 20:00 97.5 76 20 112/60 95 Room Air 01/11/17 16:00 97.9 75 16 120/60 98 Nasal Cannula 3.0 Intake and Output 01/12/17 01/13/17 19:00 07:00 Intake Total 375 ml Balance 375 ml IV Total 375 ml Objective General Appearance: no acute distress HEENT: normocephalic, atraumatic, anicteric Respiratory/Chest: lungs clear, no respiratory distress, no accessory muscle use Cardiovascular: normal rate, regular rhythm, no JVD Abdomen: normal bowel sounds, soft, non tender, non distended Genitourinary: normal external genitalia Skin: dressing R hip intact Extremities: no edema, pedal pulses normal Neurologic/Psychiatric: abnormal gait, alert, responsive Laboratory Tests 01/12/17 04:50: White Blood Count 7.5, Red Blood Count 3.67L, Hemoglobin 9.7L, Hematocrit 30.9L , Mean Corpuscular Volume 84, Mean Corpuscular Hemoglobin 26.4L, Mean Corpuscular Hemoglobin Concent 31.3L, Red Cell Distribution Width 12.7, Platelet Count 189, Mean Platelet Volume 7.2, Neutrophils (%) (Auto) 71.0, Lymphocytes (%) (Auto) 17.2L, Monocytes (%) (Auto) 10.0, Eosinophils (%) (Auto) 1.5, Basophils (%) (Auto) 0.4, Sodium Level 139, Potassium Level 4.1, Chloride Level 102, Carbon Dioxide Level 25, Anion Gap 12, Blood Urea Nitrogen 9, Creatinine 0.7, Estimat Glomerular Filtration Rate , Glucose Level 112H, Calcium Level 8.4L Current Medications Medications (Trade) Dose Ordered Sig/Neri Route PRN Reason Start Time Stop Time Status Last Admin Dose Admin Acetaminophen (Tylenol) 650 mg Q6H PRN ORAL Mild Pain/Temp > 100.5 01/07/17 16:30 02/05/17 16:29 Acetaminophen/ Hydrocodone Bitart ([place] 5/325) 1 tab Q6H PRN ORAL Severe Pain (Pain Scale 7-10) 01/07/17 17:00 01/13/17 16:59 01/09/17 08:50 Acetaminophen/ Hydrocodone Bitart ([place] 5/325) 2 tab Q6H PRN ORAL Severe Pain (Pain Scale 7-10) 01/10/17 16:15 01/17/17 16:14 Acetaminophen/ Hydrocodone Bitart ([place] 7.5/325) 1 ea Q4H PRN ORAL Moderate Pain (Pain Scale 4-6) 01/10/17 16:15 01/17/17 16:14 01/11/17 13:13 Dextrose (Dextrose 50%) STAT PRN IV Hypoglycemia 01/07/17 16:30 02/06/17 16:29 Dextrose/Sodium Chloride 1,000 ml @ 75 mls/hr [id number] IV 01/07/17 16:30 02/05/17 16:29 01/12/17 02:01 Docusate Sodium (Colace) 100 mg THREE TIMES A DAY ORAL 01/10/17 21:00 02/09/17 20:59 01/12/17 08:16 Heparin Sodium (Porcine) (Heparin 5000 units/ml) 5,000 units EVERY 12 HOURS SUBQ 01/07/17 21:00 02/05/17 08:59 01/12/17 08:17 Magnesium Hydroxide (Mom) 30 ml DAILYPRN PRN ORAL Constipation 01/10/17 16:15 02/09/17 16:14 Metoclopramide HCl (Reglan) 10 mg Q6HR PRN IVP Nausea & Vomiting 01/10/17 16:15 02/09/17 16:14 Morphine Sulfate (Morphine Sulfate) 1 mg Q3H PRN IVP Pain scale 1-3 01/10/17 16:15 01/17/17 16:14 Morphine Sulfate (Morphine Sulfate) 2 mg Q3H PRN IVP Moderate Pain (Pain Scale 4-6) 01/10/17 16:15 01/17/17 16:14 01/11/17 18:03 Ondansetron HCl (Zofran) 4 mg Q6HR PRN IVP Nausea & Vomiting 01/10/17 16:15 02/09/17 16:14 Temazepam (Restoril) 7.5 mg DAILY PRN ORAL Insomnia 01/10/17 16:15 01/17/17 16:14 Zhang CaicedoMine villa NP Jan 12, 2017 12:23
--- NOTE | 2017-01-12 15:07 | Internal Med Progress Note ---
Subjective Date of Service: Jan 12, 2017 Physician Name Sr,Nettie Attending Physician Satnam Cunha MD Current Medications Medications (Trade) Dose Ordered Sig/Neri Route PRN Reason Start Time Stop Time Status Last Admin Dose Admin Acetaminophen (Tylenol) 650 mg Q6H PRN ORAL Mild Pain/Temp > 100.5 01/07/17 16:30 02/05/17 16:29 Acetaminophen/ Hydrocodone Bitart ([place] 5/325) 1 tab Q6H PRN ORAL Severe Pain (Pain Scale 7-10) 01/07/17 17:00 01/13/17 16:59 01/09/17 08:50 Acetaminophen/ Hydrocodone Bitart ([place] 5/325) 2 tab Q6H PRN ORAL Severe Pain (Pain Scale 7-10) 01/10/17 16:15 01/17/17 16:14 Acetaminophen/ Hydrocodone Bitart ([place] 7.5/325) 1 ea Q4H PRN ORAL Moderate Pain (Pain Scale 4-6) 01/10/17 16:15 01/17/17 16:14 01/11/17 13:13 Dextrose (Dextrose 50%) STAT PRN IV Hypoglycemia 01/07/17 16:30 02/06/17 16:29 Dextrose/Sodium Chloride 1,000 ml @ 75 mls/hr [id number] IV 01/07/17 16:30 02/05/17 16:29 01/12/17 02:01 Docusate Sodium (Colace) 100 mg THREE TIMES A DAY ORAL 01/10/17 21:00 02/09/17 20:59 01/12/17 13:30 Heparin Sodium (Porcine) (Heparin 5000 units/ml) 5,000 units EVERY 12 HOURS SUBQ 01/07/17 21:00 02/05/17 08:59 01/12/17 08:17 Magnesium Hydroxide (Mom) 30 ml DAILYPRN PRN ORAL Constipation 01/10/17 16:15 02/09/17 16:14 Metoclopramide HCl (Reglan) 10 mg Q6HR PRN IVP Nausea & Vomiting 01/10/17 16:15 02/09/17 16:14 Morphine Sulfate (Morphine Sulfate) 1 mg Q3H PRN IVP Pain scale 1-3 01/10/17 16:15 01/17/17 16:14 Morphine Sulfate (Morphine Sulfate) 2 mg Q3H PRN IVP Moderate Pain (Pain Scale 4-6) 01/10/17 16:15 01/17/17 16:14 01/11/17 18:03 Ondansetron HCl (Zofran) 4 mg Q6HR PRN IVP Nausea & Vomiting 01/10/17 16:15 02/09/17 16:14 Temazepam (Restoril) 7.5 mg DAILY PRN ORAL Insomnia 01/10/17 16:15 01/17/17 16:14 Allergies: Coded Allergies: No Known Allergies (Unverified , 01/06/17) ROS Limited/Unobtainable: No Constitutional: Reports: no symptoms HEENT: Reports: no symptoms Cardiovascular: Reports: no symptoms Respiratory: Reports: no symptoms Gastrointestinal/Abdominal: Reports: no symptoms Genitourinary: Reports: no symptoms Neurologic/Psychiatric: Reports: no symptoms Subjective 76 YO M admitted with gen weakness and rhabdomyolysis. Cover for Int Doe-Dr Cunha. S/P right hip hemiarthroplasty on Fri01/10/17. Objective Last Vital Signs Date Time Temp Pulse Resp B/P (MAP) Pulse Ox O2 Delivery O2 Flow Rate FiO2 01/12/17 08:00 98.1 88 15 133/72 94 Room Air 01/11/17 16:00 3.0 Laboratory Tests Test 01/12/17 04:50 White Blood Count 7.5 K/UL (4.8-10.8) Red Blood Count 3.67 M/UL (4.70-6.10) L Hemoglobin 9.7 G/DL (14.2-18.0) L Hematocrit 30.9 % (42.0-52.0) L Mean Corpuscular Volume 84 FL (80-99) Mean Corpuscular Hemoglobin 26.4 PG (27.0-31.0) L Mean Corpuscular Hemoglobin Concent 31.3 G/DL (32.0-36.0) L Red Cell Distribution Width 12.7 % (11.6-14.8) Platelet Count 189 K/UL (150-450) Mean Platelet Volume 7.2 FL (6.5-10.1) Neutrophils (%) (Auto) 71.0 % (45.0-75.0) Lymphocytes (%) (Auto) 17.2 % (20.0-45.0) L Monocytes (%) (Auto) 10.0 % (1.0-10.0) Eosinophils (%) (Auto) 1.5 % (0.0-3.0) Basophils (%) (Auto) 0.4 % (0.0-2.0) Sodium Level 139 mEQ/L (135-145) Potassium Level 4.1 mEQ/L (3.4-4.9) Chloride Level 102 mEQ/L (98-107) Carbon Dioxide Level 25 mEQ/L (20-30) Anion Gap 12 (5-15) Blood Urea Nitrogen 9 mg/dL (7-23) Creatinine 0.7 mg/dL (0.7-1.2) Estimat Glomerular Filtration Rate mL/min (>60) Glucose Level 112 mg/dL (74-106) H Calcium Level 8.4 mg/dL (8.6-10.2) L Intake and Output 01/12/17 01/13/17 19:00 07:00 Intake Total 525 ml Balance 525 ml IV Total 525 ml Objective General Appearance: WD/WN, no apparent distress, alert EENT: PERRL/EOMI, normal ENT inspection, TMs normal Neck: non-tender, normal alignment, supple Cardiovascular: normal peripheral pulses, normal rate, regular rhythm, no gallop/murmur, no JVD Respiratory/Chest: chest wall non-tender, lungs clear, normal breath sounds, no respiratory distress, no accessory muscle use Abdomen: normal bowel sounds, non tender, soft, no organomegaly, no mass Extremities: other - right hip pain 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 See ID note. (4) Rhabdomyolysis Assessment & Plan: Follow CPK. Cont IV fluids. (5) Fracture of femoral neck, right Assessment & Plan: S/P right hip hemiarthroplasty on Fri01/10/17 Assessment/Plan Acute rehab [facility] Jan 12, 2017 15:07
[2017-01-12 16:30] VITALS: BP 122/61
--- NOTE | 2017-01-12 18:56 | Cardiology Progress Note ---
Assessment/Plan Assessment/Plan stable from cardiac standpoint Subjective Subjective stable, no new cardiac complaints Objective Last 24 Hour Vital Signs Date Time Temp Pulse Resp B/P (MAP) Pulse Ox O2 Delivery O2 Flow Rate FiO2 01/12/17 12:00 90.5 85 16 157/64 93 Room Air 01/12/17 08:00 98.1 88 15 133/72 94 Room Air 01/12/17 04:00 97.3 80 20 128/73 94 Room Air 01/12/17 00:00 97.3 78 20 123/70 93 Room Air 01/11/17 20:00 97.5 76 20 112/60 95 Room Air General Appearance: no apparent distress EENT: PERRL/EOMI Neck: supple Rhythm: NSR Cardiovascular: normal rate Respiratory/Chest: lungs clear Abdomen: soft Extremities: other - immobilised Neurologic: other Intake and Output 01/12/17 01/13/17 19:00 07:00 Intake Total 675 ml Balance 675 ml IV Total 675 ml Laboratory Tests Test 01/12/17 04:50 White Blood Count 7.5 K/UL (4.8-10.8) Red Blood Count 3.67 M/UL (4.70-6.10) L Hemoglobin 9.7 G/DL (14.2-18.0) L Hematocrit 30.9 % (42.0-52.0) L Mean Corpuscular Volume 84 FL (80-99) Mean Corpuscular Hemoglobin 26.4 PG (27.0-31.0) L Mean Corpuscular Hemoglobin Concent 31.3 G/DL (32.0-36.0) L Red Cell Distribution Width 12.7 % (11.6-14.8) Platelet Count 189 K/UL (150-450) Mean Platelet Volume 7.2 FL (6.5-10.1) Neutrophils (%) (Auto) 71.0 % (45.0-75.0) Lymphocytes (%) (Auto) 17.2 % (20.0-45.0) L Monocytes (%) (Auto) 10.0 % (1.0-10.0) Eosinophils (%) (Auto) 1.5 % (0.0-3.0) Basophils (%) (Auto) 0.4 % (0.0-2.0) Sodium Level 139 mEQ/L (135-145) Potassium Level 4.1 mEQ/L (3.4-4.9) Chloride Level 102 mEQ/L (98-107) Carbon Dioxide Level 25 mEQ/L (20-30) Anion Gap 12 (5-15) Blood Urea Nitrogen 9 mg/dL (7-23) Creatinine 0.7 mg/dL (0.7-1.2) Estimat Glomerular Filtration Rate mL/min (>60) Glucose Level 112 mg/dL (74-106) H Calcium Level 8.4 mg/dL (8.6-10.2) LAVELLE SANTOS Jan 12, 2017 18:56
[2017-01-12 20:00] VITALS: BP 127/67
--- NOTE | 2017-01-12 22:12 | Diagnostic Imaging Report ---
APPROVED REPORT CPT Code: 22375 Vascular Symptoms Comments: For venous access Doppler Spectral Velocity Analysis RightLeft RIGHT SIDE: CCA - Imaging reveals no significant plaque within the extracranial carotid arteries. The Doppler spectral flow analysis is within normal limits throughout the extracranial carotid arteries. VERTEBRAL - The vertebral artery is within normal limits. carotid arteries. ECA - Imaging reveals irregular plaque in the external carotid artery. The Doppler signal indicates the degree of stenosis is minimal (10-15%) in the external carotid artery. VERTEBRAL - The vertebral artery is within normal limits.
[2017-01-13] VITALS: BP 130/68
[2017-01-13 04:00] VITALS: BP 123/60
[2017-01-13 07:43] LABS: BASOPHILS % (AUTO) 0.4 % (0.0-2.0); EOSINOPHILS % (AUTO) 1.7 % (0.0-3.0); LYMPHOCYTES % (AUTO) 21.5 % (20.0-45.0); MEAN CORPUSCULAR HGB CONC 30.4 G/DL (32.0-36.0); MEAN CORPUSCULAR VOLUME 86 FL (80-99); MEAN PLATELET VOLUME 6.3 FL (6.5-10.1); MONOCYTES % (AUTO) 11.8 % (1.0-10.0); NEUTROPHILS % (AUTO) 64.6 % (45.0-75.0); PLATELET COUNT 243 K/UL (150-450); RED BLOOD COUNT 3.68 M/UL (4.70-6.10); WHITE BLOOD COUNT 8.2 K/UL (4.8-10.8)
[2017-01-13 07:51] LABS: ANION GAP 10 (5-15); CARBON DIOXIDE 29 mEQ/L (20-30); CHLORIDE 104 mEQ/L (98-107); CREATININE 0.8 mg/dL (0.7-1.2); HEMOLYSIS 0; POTASSIUM 4.1 mEQ/L (3.4-4.9); SODIUM 143 mEQ/L (135-145)
[2017-01-13 08:26] VITALS: BP 131/71
[2017-01-13] MEDS: Docusate 100mg cap ORAL SCH ×3 (09:01→18:04)
[2017-01-13] MEDS: Heparin 5000 units/ml inj SUBQ SCH ×2 (09:02→20:53)
--- NOTE | 2017-01-13 11:23 | Internal Med Progress Note ---
Subjective Date of Service: Jan 13, 2017 Physician Name Nettie Sr Attending Physician Satnam Cunha MD Current Medications Medications (Trade) Dose Ordered Sig/Neri Route PRN Reason Start Time Stop Time Status Last Admin Dose Admin Acetaminophen (Tylenol) 650 mg Q6H PRN ORAL Mild Pain/Temp > 100.5 01/07/17 16:30 02/05/17 16:29 Acetaminophen/ Hydrocodone Bitart ([place] 5/325) 1 tab Q6H PRN ORAL Severe Pain (Pain Scale 7-10) 01/07/17 17:00 01/13/17 16:59 01/09/17 08:50 Acetaminophen/ Hydrocodone Bitart ([place] 5/325) 2 tab Q6H PRN ORAL Severe Pain (Pain Scale 7-10) 01/10/17 16:15 01/17/17 16:14 Acetaminophen/ Hydrocodone Bitart ([place] 7.5/325) 1 ea Q4H PRN ORAL Moderate Pain (Pain Scale 4-6) 01/10/17 16:15 01/17/17 16:14 01/11/17 13:13 Dextrose (Dextrose 50%) STAT PRN IV Hypoglycemia 01/07/17 16:30 02/06/17 16:29 Docusate Sodium (Colace) 100 mg THREE TIMES A DAY ORAL 01/10/17 21:00 02/09/17 20:59 01/13/17 09:01 Heparin Sodium (Porcine) (Heparin 5000 units/ml) 5,000 units EVERY 12 HOURS SUBQ 01/07/17 21:00 02/05/17 08:59 01/13/17 09:02 Magnesium Hydroxide (Mom) 30 ml DAILYPRN PRN ORAL Constipation 01/10/17 16:15 02/09/17 16:14 Metoclopramide HCl (Reglan) 10 mg Q6HR PRN IVP Nausea & Vomiting 01/10/17 16:15 02/09/17 16:14 Morphine Sulfate (Morphine Sulfate) 1 mg Q3H PRN IVP Pain scale 1-3 01/10/17 16:15 01/17/17 16:14 Morphine Sulfate (Morphine Sulfate) 2 mg Q3H PRN IVP Moderate Pain (Pain Scale 4-6) 01/10/17 16:15 01/17/17 16:14 01/11/17 18:03 Ondansetron HCl (Zofran) 4 mg Q6HR PRN IVP Nausea & Vomiting 01/10/17 16:15 02/09/17 16:14 Temazepam (Restoril) 7.5 mg DAILY PRN ORAL Insomnia 01/10/17 16:15 01/17/17 16:14 Allergies: Coded Allergies: No Known Allergies (Unverified , 01/06/17) ROS Limited/Unobtainable: No Constitutional: Reports: no symptoms HEENT: Reports: no symptoms Cardiovascular: Reports: no symptoms Respiratory: Reports: no symptoms Gastrointestinal/Abdominal: Reports: no symptoms Genitourinary: Reports: no symptoms Neurologic/Psychiatric: Reports: no symptoms Subjective 76 YO M admitted with gen weakness and rhabdomyolysis. Cover for Int Med-Dr Cunha. S/P right hip hemiarthroplasty on Fri01/10/17. C/O right hip pian. Objective Last Vital Signs Date Time Temp Pulse Resp B/P (MAP) Pulse Ox O2 Delivery O2 Flow Rate FiO2 01/13/17 08:26 97.9 83 19 131/71 97 Room Air 01/11/17 16:00 3.0 Laboratory Tests Test 01/13/17 07:02 White Blood Count 8.2 K/UL (4.8-10.8) Red Blood Count 3.68 M/UL (4.70-6.10) L Hemoglobin 9.6 G/DL (14.2-18.0) L Hematocrit 31.5 % (42.0-52.0) L Mean Corpuscular Volume 86 FL (80-99) Mean Corpuscular Hemoglobin 26.0 PG (27.0-31.0) L Mean Corpuscular Hemoglobin Concent 30.4 G/DL (32.0-36.0) L Red Cell Distribution Width 13.0 % (11.6-14.8) Platelet Count 243 K/UL (150-450) Mean Platelet Volume 6.3 FL (6.5-10.1) L Neutrophils (%) (Auto) 64.6 % (45.0-75.0) Lymphocytes (%) (Auto) 21.5 % (20.0-45.0) Monocytes (%) (Auto) 11.8 % (1.0-10.0) H Eosinophils (%) (Auto) 1.7 % (0.0-3.0) Basophils (%) (Auto) 0.4 % (0.0-2.0) Sodium Level 143 mEQ/L (135-145) Potassium Level 4.1 mEQ/L (3.4-4.9) Chloride Level 104 mEQ/L (98-107) Carbon Dioxide Level 29 mEQ/L (20-30) Anion Gap 10 (5-15) Blood Urea Nitrogen 9 mg/dL (7-23) Creatinine 0.8 mg/dL (0.7-1.2) Estimat Glomerular Filtration Rate mL/min (>60) Glucose Level 109 mg/dL (74-106) H Calcium Level 9.0 mg/dL (8.6-10.2) Objective General Appearance: WD/WN, no apparent distress, alert EENT: PERRL/EOMI, normal ENT inspection, TMs normal Neck: non-tender, normal alignment, supple Cardiovascular: normal peripheral pulses, normal rate, regular rhythm, no gallop/murmur, no JVD Respiratory/Chest: chest wall non-tender, lungs clear, normal breath sounds, no respiratory distress, no accessory muscle use Abdomen: normal bowel sounds, non tender, soft, no organomegaly, no mass Extremities: other - right hip pain 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 See ID note. (4) Rhabdomyolysis Assessment & Plan: Follow CPK. Cont IV fluids. (5) Fracture of femoral neck, right Assessment & Plan: S/P right hip hemiarthroplasty on Fri01/10/17 Status: progressing Assessment/Plan [facility] [place] [facility] Jan 13, 2017 11:23
[2017-01-13 11:37] VITALS: BP 150/65
--- NOTE | 2017-01-13 11:45 | Infectious Diseases Prog Note ---
Assessment/Plan Assessment/Plan Assymptomatic bacteriuria - UCx mixed GP -u/a with significant pyuria Afebrile without leukocytosis Acute right distal femoral neck fracture - SP ELIZABETH 01/10 Syncope Rhabdomyolysis NKDA Full Code PLAN: -Continue to monitor off abx -s/p 2 doses of Ancef 01/11 -s/p 3 d Ceftriaxone 01/08 monitor CBC, temperatures monitor BMP PT/OT Subjective Constitutional: Denies: no symptoms, fever, chills, fatigue, anorexia, drenching sweats, other Allergies: Coded Allergies: No Known Allergies (Unverified , 01/06/17) Objective Vital Signs Last 24 Hour Vital Signs Date Time Temp Pulse Resp B/P (MAP) Pulse Ox O2 Delivery O2 Flow Rate FiO2 01/13/17 11:37 98.2 82 20 150/65 96 Room Air 01/13/17 08:26 97.9 83 19 131/71 97 Room Air 01/13/17 04:00 97.6 77 18 123/60 97 Room Air 01/13/17 00:00 97.9 76 19 130/68 96 Room Air 01/12/17 20:00 98.3 86 18 127/67 98 Room Air 01/12/17 16:30 97.1 78 16 122/61 98 Room Air 01/12/17 12:00 97.0 85 16 157/64 93 Room Air Height (Feet): 6 Height (Inches): 4.00 Weight (Pounds): 196 HEENT: anicteric Respiratory/Chest: no accessory muscle use Cardiovascular: regularly irregular Abdomen: no organomegaly Laboratory Tests Test 01/13/17 07:02 White Blood Count 8.2 K/UL (4.8-10.8) Red Blood Count 3.68 M/UL (4.70-6.10) L Hemoglobin 9.6 G/DL (14.2-18.0) L Hematocrit 31.5 % (42.0-52.0) L Mean Corpuscular Volume 86 FL (80-99) Mean Corpuscular Hemoglobin 26.0 PG (27.0-31.0) L Mean Corpuscular Hemoglobin Concent 30.4 G/DL (32.0-36.0) L Red Cell Distribution Width 13.0 % (11.6-14.8) Platelet Count 243 K/UL (150-450) Mean Platelet Volume 6.3 FL (6.5-10.1) L Neutrophils (%) (Auto) 64.6 % (45.0-75.0) Lymphocytes (%) (Auto) 21.5 % (20.0-45.0) Monocytes (%) (Auto) 11.8 % (1.0-10.0) H Eosinophils (%) (Auto) 1.7 % (0.0-3.0) Basophils (%) (Auto) 0.4 % (0.0-2.0) Sodium Level 143 mEQ/L (135-145) Potassium Level 4.1 mEQ/L (3.4-4.9) Chloride Level 104 mEQ/L (98-107) Carbon Dioxide Level 29 mEQ/L (20-30) Anion Gap 10 (5-15) Blood Urea Nitrogen 9 mg/dL (7-23) Creatinine 0.8 mg/dL (0.7-1.2) Estimat Glomerular Filtration Rate mL/min (>60) Glucose Level 109 mg/dL (74-106) H Calcium Level 9.0 mg/dL (8.6-10.2) Total Creatine Kinase Pending Current Medications Medications (Trade) Dose Ordered Sig/Neri Route PRN Reason Start Time Stop Time Status Last Admin Dose Admin Acetaminophen (Tylenol) 650 mg Q6H PRN ORAL Mild Pain/Temp > 100.5 01/07/17 16:30 02/05/17 16:29 Acetaminophen/ Hydrocodone Bitart ([place] 5/325) 1 tab Q6H PRN ORAL Severe Pain (Pain Scale 7-10) 01/07/17 17:00 01/13/17 16:59 01/09/17 08:50 Acetaminophen/ Hydrocodone Bitart ([place] 5/325) 2 tab Q6H PRN ORAL Severe Pain (Pain Scale 7-10) 01/10/17 16:15 01/17/17 16:14 Acetaminophen/ Hydrocodone Bitart ([place] 7.5/325) 1 ea Q4H PRN ORAL Moderate Pain (Pain Scale 4-6) 01/10/17 16:15 01/17/17 16:14 01/11/17 13:13 Dextrose (Dextrose 50%) STAT PRN IV Hypoglycemia 01/07/17 16:30 02/06/17 16:29 Docusate Sodium (Colace) 100 mg THREE TIMES A DAY ORAL 01/10/17 21:00 02/09/17 20:59 01/13/17 09:01 Heparin Sodium (Porcine) (Heparin 5000 units/ml) 5,000 units EVERY 12 HOURS SUBQ 01/07/17 21:00 02/05/17 08:59 01/13/17 09:02 Magnesium Hydroxide (Mom) 30 ml DAILYPRN PRN ORAL Constipation 01/10/17 16:15 02/09/17 16:14 Metoclopramide HCl (Reglan) 10 mg Q6HR PRN IVP Nausea & Vomiting 01/10/17 16:15 02/09/17 16:14 Morphine Sulfate (Morphine Sulfate) 1 mg Q3H PRN IVP Pain scale 1-3 01/10/17 16:15 01/17/17 16:14 Morphine Sulfate (Morphine Sulfate) 2 mg Q3H PRN IVP Moderate Pain (Pain Scale 4-6) 01/10/17 16:15 01/17/17 16:14 01/11/17 18:03 Ondansetron HCl (Zofran) 4 mg Q6HR PRN IVP Nausea & Vomiting 01/10/17 16:15 02/09/17 16:14 Temazepam (Restoril) 7.5 mg DAILY PRN ORAL Insomnia 01/10/17 16:15 01/17/17 16:14 CINDY SIMON M.D. Jan 13, 2017 11:45
--- NOTE | 2017-01-13 13:57 | Wound Nurse Progress Note ---
Wound RN Progress Note Wound Consult #1 right elbow traumatic injury -abrasion.- noted good progress no further deterioration noted.current treatment is effective. #2 right knee traumatic injury-abrasion.-noted good progress no further deterioration noted.current treatment is effective. #3 right medial lower leg scattered scabs.-noted good progress no further deterioration noted.current treatment is effective. #4 left knee area scabs.-noted good progress no further deterioration noted.current treatment is effective. #5 anterior wrist scab.-noted good progress no further deterioration noted.current treatment is effective. Recommendation. -Local wound care as ordered. -Turn and reposition. -Keep clean and dry. -Optimize nutrition. -keep scabs clean and dry. -Assess and notify MD for any changes of condition. ANTIONE SANCHEZ Jan 13, 2017 13:57
--- NOTE | 2017-01-13 15:35 | Pulmonology Progress Note ---
Assessment/Plan Problems: (1) Fracture of femoral neck, right (2) Acute encephalopathy (3) UTI (urinary tract infection) Assessment/Plan pt/ot report reviewed pt will need snif or home with 24 hour care. s/p surgery pain control dc planning Subjective Constitutional: Reports: no symptoms HEENT: Repors: no symptoms Respiratory: Reports: no symptoms Allergies: Coded Allergies: No Known Allergies (Unverified , 01/06/17) Objective Last 24 Hour Vital Signs Date Time Temp Pulse Resp B/P (MAP) Pulse Ox O2 Delivery O2 Flow Rate FiO2 01/13/17 11:37 98.2 82 20 150/65 96 Room Air 01/13/17 08:26 97.9 83 19 131/71 97 Room Air 01/13/17 04:00 97.6 77 18 123/60 97 Room Air 01/13/17 00:00 97.9 76 19 130/68 96 Room Air 01/12/17 20:00 98.3 86 18 127/67 98 Room Air 01/12/17 16:30 97.1 78 16 122/61 98 Room Air General Appearance: WD/WN, no acute distress Respiratory/Chest: chest wall non-tender, lungs clear Cardiovascular: normal peripheral pulses, normal rate Abdomen: normal bowel sounds, soft, non tender Genitourinary: normal external genitalia Extremities: no cyanosis Skin: no lesions, no ulcers Neurologic/Psychiatric: no motor/sensory deficits Lymphatic: no neck adenopathy, no groin adenopathy Laboratory Tests 01/13/17 07:02: White Blood Count 8.2, Red Blood Count 3.68L, Hemoglobin 9.6L, Hematocrit 31.5L , Mean Corpuscular Volume 86, Mean Corpuscular Hemoglobin 26.0L, Mean Corpuscular Hemoglobin Concent 30.4L, Red Cell Distribution Width 13.0, Platelet Count 243, Mean Platelet Volume 6.3L, Neutrophils (%) (Auto) 64.6, Lymphocytes (%) (Auto) 21.5, Monocytes (%) (Auto) 11.8H, Eosinophils (%) (Auto) 1.7, Basophils (%) (Auto) 0.4, Sodium Level 143, Potassium Level 4.1, Chloride Level 104, Carbon Dioxide Level 29, Anion Gap 10, Blood Urea Nitrogen 9, Creatinine 0.8, Estimat Glomerular Filtration Rate , Glucose Level 109H, Calcium Level 9.0, Total Creatine Kinase 199H Current Medications Medications (Trade) Dose Ordered Sig/Neri Route PRN Reason Start Time Stop Time Status Last Admin Dose Admin Acetaminophen (Tylenol) 650 mg Q6H PRN ORAL Mild Pain/Temp > 100.5 01/07/17 16:30 02/05/17 16:29 Acetaminophen/ Hydrocodone Bitart ([place] 5/325) 1 tab Q6H PRN ORAL Severe Pain (Pain Scale 7-10) 01/07/17 17:00 01/13/17 16:59 01/09/17 08:50 Acetaminophen/ Hydrocodone Bitart ([place] 5/325) 2 tab Q6H PRN ORAL Severe Pain (Pain Scale 7-10) 01/10/17 16:15 01/17/17 16:14 Acetaminophen/ Hydrocodone Bitart ([place] 7.5/325) 1 ea Q4H PRN ORAL Moderate Pain (Pain Scale 4-6) 01/10/17 16:15 01/17/17 16:14 01/11/17 13:13 Dextrose (Dextrose 50%) STAT PRN IV Hypoglycemia 01/07/17 16:30 02/06/17 16:29 Docusate Sodium (Colace) 100 mg THREE TIMES A DAY ORAL 01/10/17 21:00 02/09/17 20:59 01/13/17 14:02 Heparin Sodium (Porcine) (Heparin 5000 units/ml) 5,000 units EVERY 12 HOURS SUBQ 01/07/17 21:00 02/05/17 08:59 01/13/17 09:02 Magnesium Hydroxide (Mom) 30 ml DAILYPRN PRN ORAL Constipation 01/10/17 16:15 02/09/17 16:14 Metoclopramide HCl (Reglan) 10 mg Q6HR PRN IVP Nausea & Vomiting 01/10/17 16:15 02/09/17 16:14 Morphine Sulfate (Morphine Sulfate) 1 mg Q3H PRN IVP Pain scale 1-3 01/10/17 16:15 01/17/17 16:14 Morphine Sulfate (Morphine Sulfate) 2 mg Q3H PRN IVP Moderate Pain (Pain Scale 4-6) 01/10/17 16:15 01/17/17 16:14 01/11/17 18:03 Ondansetron HCl (Zofran) 4 mg Q6HR PRN IVP Nausea & Vomiting 01/10/17 16:15 02/09/17 16:14 Temazepam (Restoril) 7.5 mg DAILY PRN ORAL Insomnia 01/10/17 16:15 01/17/17 16:14 MARY ANN CRUZ Jan 13, 2017 15:35
[2017-01-13 15:50] VITALS: BP 122/59
[2017-01-13 20:00] VITALS: BP 126/70
--- NOTE | 2017-01-13 21:45 | Progress Note ---
DATE: 01/13/2017 History of Present Illness: The patient is postop day #3 status post a hip hemiarthroplasty. He is doing very well. Minimal complaints. He is tolerating p.o. He is ambulating with physical therapy. The patient is tolerating p.o. Physical Examination: Examination shows incision is clean, dry, and intact. Posterior calf is soft. Neurovascularly normal. Diagnostic Data: Imaging studies showed good overall position/valgus placement of the stem. ASSESSMENT: Status post hip hemiarthroplasty. Discussion: At this point, he is going to continue with PT and OT. Once they evaluate him, maybe consider him for discharge planning either a SNF, to a home. I will see him as an outpatient in 2 to 3 weeks for further care and recommendations. Ranjan Santos M.D. DR: YULI JOB#: [id number] CC:
[2017-01-14] VITALS: BP 131/69
[2017-01-14 04:07] VITALS: BP 134/77
[2017-01-14 07:00] LABS: ANION GAP 11 (5-15); CALCIUM 8.8 mg/dL (8.6-10.2); CARBON DIOXIDE 26 mEQ/L (20-30); CHLORIDE 102 mEQ/L (98-107); CREATININE 0.7 mg/dL (0.7-1.2); HEMOLYSIS 0; POTASSIUM 4.2 mEQ/L (3.4-4.9); SODIUM 139 mEQ/L (135-145)
[2017-01-14 07:13] LABS: BASOPHILS % (AUTO) 0.4 % (0.0-2.0); EOSINOPHILS % (AUTO) 1.9 % (0.0-3.0); MEAN CORPUSCULAR HGB CONC 30.4 G/DL (32.0-36.0); MEAN CORPUSCULAR VOLUME 85 FL (80-99); MEAN PLATELET VOLUME 6.9 FL (6.5-10.1); MONOCYTES % (AUTO) 9.9 % (1.0-10.0); NEUTROPHILS % (AUTO) 66.8 % (45.0-75.0); PLATELET COUNT 257 K/UL (150-450); RED BLOOD COUNT 3.49 M/UL (4.70-6.10); RED CELL DISTRIBUTION WIDTH 13.1 % (11.6-14.8)
[2017-01-14] MEDS: Heparin 5000 units/ml inj SUBQ SCH (08:34)
[2017-01-14] MEDS: Docusate 100mg cap ORAL SCH ×2 (08:34→13:00)
[2017-01-14 12:15] VITALS: BP 125/66
[2017-01-14] MEDS ORDERED: ACETAMINOPHEN325 M1 ORAL (13:14)
[2017-01-14] MEDS ORDERED: DOCUSATE SODIU100 MG ORAL (13:15)
[2017-01-14] MEDS ORDERED: HEPARIN SO5000 UNIT2 SUBQ (13:15)
[2017-01-14] MEDS ORDERED: NORCO 5-325 TA1 EAC1 ORAL (13:18)
[2017-01-14] MEDS ORDERED: NORCO 7.5/3251 EA ORAL (13:21)
[2017-01-14] MEDS ORDERED: MOM30 ML ORAL (13:23)
[2017-01-14] MEDS ORDERED: METOCLOPRA10 MG/2 ML IV (13:24)
[2017-01-14] MEDS ORDERED: ZOFRAN 4 MG4 MG/2 ML IV (13:25)
[2017-01-14] MEDS ORDERED: TEMAZEPAM7.5 MG ORAL (13:25)
[2017-01-14] MEDS ORDERED: MORPHINE 22 MG/1 ML IV (13:28)
[2017-01-14 16:00] VITALS: BP 122/60
--- NOTE | 2017-01-14 16:13 | Infectious Diseases Prog Note ---
Assessment/Plan Assessment/Plan Assymptomatic bacteriuria - UCx mixed GP -u/a with significant pyuria Afebrile without leukocytosis Acute right distal femoral neck fracture - SP ELIZABETH 01/10 Syncope Rhabdomyolysis NKDA Full Code PLAN: -Continue to monitor off abx -s/p 2 doses of Ancef 01/11 -s/p 3 d Ceftriaxone 01/08 monitor CBC, temperatures monitor BMP PT/OT Subjective Constitutional: Denies: no symptoms, fever, chills, fatigue, anorexia, drenching sweats, other Allergies: Coded Allergies: No Known Allergies (Unverified , 01/06/17) Objective Vital Signs Last 24 Hour Vital Signs Date Time Temp Pulse Resp B/P (MAP) Pulse Ox O2 Delivery O2 Flow Rate FiO2 01/14/17 16:00 98.1 82 20 122/60 96 Room Air 01/14/17 12:15 97.6 73 20 125/66 97 Room Air 01/14/17 04:07 97.6 78 21 134/77 96 Room Air 01/14/17 00:00 97.6 68 21 131/69 98 Room Air 01/13/17 20:00 97.5 79 20 126/70 98 Room Air Height (Feet): 6 Height (Inches): 4.00 Weight (Pounds): 196 HEENT: atraumatic Respiratory/Chest: normal breath sounds Cardiovascular: regular rhythm Abdomen: no organomegaly Laboratory Tests Test 01/14/17 06:00 White Blood Count 8.0 K/UL (4.8-10.8) Red Blood Count 3.49 M/UL (4.70-6.10) L Hemoglobin 9.1 G/DL (14.2-18.0) L Hematocrit 29.8 % (42.0-52.0) L Mean Corpuscular Volume 85 FL (80-99) Mean Corpuscular Hemoglobin 26.0 PG (27.0-31.0) L Mean Corpuscular Hemoglobin Concent 30.4 G/DL (32.0-36.0) L Red Cell Distribution Width 13.1 % (11.6-14.8) Platelet Count 257 K/UL (150-450) Mean Platelet Volume 6.9 FL (6.5-10.1) Neutrophils (%) (Auto) 66.8 % (45.0-75.0) Lymphocytes (%) (Auto) 21.0 % (20.0-45.0) Monocytes (%) (Auto) 9.9 % (1.0-10.0) Eosinophils (%) (Auto) 1.9 % (0.0-3.0) Basophils (%) (Auto) 0.4 % (0.0-2.0) Sodium Level 139 mEQ/L (135-145) Potassium Level 4.2 mEQ/L (3.4-4.9) Chloride Level 102 mEQ/L (98-107) Carbon Dioxide Level 26 mEQ/L (20-30) Anion Gap 11 (5-15) Blood Urea Nitrogen 11 mg/dL (7-23) Creatinine 0.7 mg/dL (0.7-1.2) Estimat Glomerular Filtration Rate mL/min (>60) Glucose Level 103 mg/dL (74-106) Calcium Level 8.8 mg/dL (8.6-10.2) Current Medications Medications (Trade) Dose Ordered Sig/Neri Route PRN Reason Start Time Stop Time Status Last Admin Dose Admin Acetaminophen (Tylenol) 650 mg Q6H PRN ORAL Mild Pain/Temp > 100.5 01/07/17 16:30 02/05/17 16:29 Acetaminophen/ Hydrocodone Bitart ([place] 5/325) 2 tab Q6H PRN ORAL Severe Pain (Pain Scale 7-10) 01/10/17 16:15 01/17/17 16:14 Acetaminophen/ Hydrocodone Bitart ([place] 7.5/325) 1 ea Q4H PRN ORAL Moderate Pain (Pain Scale 4-6) 01/10/17 16:15 01/17/17 16:14 01/11/17 13:13 Dextrose (Dextrose 50%) STAT PRN IV Hypoglycemia 01/07/17 16:30 02/06/17 16:29 Docusate Sodium (Colace) 100 mg THREE TIMES A DAY ORAL 01/10/17 21:00 02/09/17 20:59 01/13/17 18:04 Heparin Sodium (Porcine) (Heparin 5000 units/ml) 5,000 units EVERY 12 HOURS SUBQ 01/07/17 21:00 02/05/17 08:59 01/13/17 20:53 Magnesium Hydroxide (Mom) 30 ml DAILYPRN PRN ORAL Constipation 01/10/17 16:15 02/09/17 16:14 Metoclopramide HCl (Reglan) 10 mg Q6HR PRN IVP Nausea & Vomiting 01/10/17 16:15 02/09/17 16:14 Morphine Sulfate (Morphine Sulfate) 1 mg Q3H PRN IVP Pain scale 1-3 01/10/17 16:15 01/17/17 16:14 Morphine Sulfate (Morphine Sulfate) 2 mg Q3H PRN IVP Moderate Pain (Pain Scale 4-6) 01/10/17 16:15 01/17/17 16:14 01/11/17 18:03 Ondansetron HCl (Zofran) 4 mg Q6HR PRN IVP Nausea & Vomiting 01/10/17 16:15 02/09/17 16:14 Temazepam (Restoril) 7.5 mg DAILY PRN ORAL Insomnia 01/10/17 16:15 01/17/17 16:14 CINDY SIMON M.D. Jan 14, 2017 16:13
--- NOTE | 2017-01-14 16:31 | Internal Med Progress Note ---
Subjective Date of Service: Jan 14, 2017 Physician Name CarlyNettie Attending Physician Satnam Cunha MD Current Medications Medications (Trade) Dose Ordered Sig/Neri Route PRN Reason Start Time Stop Time Status Last Admin Dose Admin Acetaminophen (Tylenol) 650 mg Q6H PRN ORAL Mild Pain/Temp > 100.5 01/07/17 16:30 02/05/17 16:29 Acetaminophen/ Hydrocodone Bitart ([place] 5/325) 2 tab Q6H PRN ORAL Severe Pain (Pain Scale 7-10) 01/10/17 16:15 01/17/17 16:14 Acetaminophen/ Hydrocodone Bitart ([place] 7.5/325) 1 ea Q4H PRN ORAL Moderate Pain (Pain Scale 4-6) 01/10/17 16:15 01/17/17 16:14 01/11/17 13:13 Dextrose (Dextrose 50%) STAT PRN IV Hypoglycemia 01/07/17 16:30 02/06/17 16:29 Docusate Sodium (Colace) 100 mg THREE TIMES A DAY ORAL 01/10/17 21:00 02/09/17 20:59 01/13/17 18:04 Heparin Sodium (Porcine) (Heparin 5000 units/ml) 5,000 units EVERY 12 HOURS SUBQ 01/07/17 21:00 02/05/17 08:59 01/13/17 20:53 Magnesium Hydroxide (Mom) 30 ml DAILYPRN PRN ORAL Constipation 01/10/17 16:15 02/09/17 16:14 Metoclopramide HCl (Reglan) 10 mg Q6HR PRN IVP Nausea & Vomiting 01/10/17 16:15 02/09/17 16:14 Morphine Sulfate (Morphine Sulfate) 1 mg Q3H PRN IVP Pain scale 1-3 01/10/17 16:15 01/17/17 16:14 Morphine Sulfate (Morphine Sulfate) 2 mg Q3H PRN IVP Moderate Pain (Pain Scale 4-6) 01/10/17 16:15 01/17/17 16:14 01/11/17 18:03 Ondansetron HCl (Zofran) 4 mg Q6HR PRN IVP Nausea & Vomiting 01/10/17 16:15 02/09/17 16:14 Temazepam (Restoril) 7.5 mg DAILY PRN ORAL Insomnia 01/10/17 16:15 01/17/17 16:14 Allergies: Coded Allergies: No Known Allergies (Unverified , 01/06/17) ROS Limited/Unobtainable: No Constitutional: Reports: no symptoms HEENT: Reports: no symptoms Cardiovascular: Reports: no symptoms Respiratory: Reports: no symptoms Gastrointestinal/Abdominal: Reports: no symptoms Genitourinary: Reports: no symptoms Neurologic/Psychiatric: Reports: no symptoms Subjective 76 YO M admitted with gen weakness and rhabdomyolysis. Cover for Int Med-Dr Cunha. S/P right hip hemiarthroplasty on Fri01/10/17. C/O right hip pian. Await transfer to [facility] today Objective Last Vital Signs Date Time Temp Pulse Resp B/P (MAP) Pulse Ox O2 Delivery O2 Flow Rate FiO2 01/14/17 16:00 98.1 82 20 122/60 96 Room Air 01/11/17 16:00 3.0 Laboratory Tests Test 01/14/17 06:00 White Blood Count 8.0 K/UL (4.8-10.8) Red Blood Count 3.49 M/UL (4.70-6.10) L Hemoglobin 9.1 G/DL (14.2-18.0) L Hematocrit 29.8 % (42.0-52.0) L Mean Corpuscular Volume 85 FL (80-99) Mean Corpuscular Hemoglobin 26.0 PG (27.0-31.0) L Mean Corpuscular Hemoglobin Concent 30.4 G/DL (32.0-36.0) L Red Cell Distribution Width 13.1 % (11.6-14.8) Platelet Count 257 K/UL (150-450) Mean Platelet Volume 6.9 FL (6.5-10.1) Neutrophils (%) (Auto) 66.8 % (45.0-75.0) Lymphocytes (%) (Auto) 21.0 % (20.0-45.0) Monocytes (%) (Auto) 9.9 % (1.0-10.0) Eosinophils (%) (Auto) 1.9 % (0.0-3.0) Basophils (%) (Auto) 0.4 % (0.0-2.0) Sodium Level 139 mEQ/L (135-145) Potassium Level 4.2 mEQ/L (3.4-4.9) Chloride Level 102 mEQ/L (98-107) Carbon Dioxide Level 26 mEQ/L (20-30) Anion Gap 11 (5-15) Blood Urea Nitrogen 11 mg/dL (7-23) Creatinine 0.7 mg/dL (0.7-1.2) Estimat Glomerular Filtration Rate mL/min (>60) Glucose Level 103 mg/dL (74-106) Calcium Level 8.8 mg/dL (8.6-10.2) Intake and Output 01/14/17 01/15/17 19:00 07:00 Intake Total 240 ml Balance 240 ml Intake Oral 240 ml Objective General Appearance: WD/WN, no apparent distress, alert EENT: PERRL/EOMI, normal ENT inspection, TMs normal Neck: non-tender, normal alignment, supple Cardiovascular: normal peripheral pulses, normal rate, regular rhythm, no gallop/murmur, no JVD Respiratory/Chest: chest wall non-tender, lungs clear, normal breath sounds, no respiratory distress, no accessory muscle use Abdomen: normal bowel sounds, non tender, soft, no organomegaly, no mass Extremities: other - right hip pain Neurologic: local operator II-XII grossly normal, no motor/sensory deficits Skin: normal pigmentation, warm/dry Assessment/Plan Problem List: (1) Syncope (2) Generalized weakness (3) UTI (urinary tract infection) Assessment & Plan: mixed gram pos cocci. See ID note. (4) Rhabdomyolysis Assessment & Plan: Follow CPK. Cont IV fluids. (5) Fracture of femoral neck, right Assessment & Plan: S/P right hip hemiarthroplasty on Fri01/10/17 Status: progressing Assessment/Plan [facility] [place] [facility] Jan 14, 2017 16:31
--- NOTE | 2017-01-14 22:22 | Pulmonology Progress Note ---
Assessment/Plan Problems: (1) Fracture of femoral neck, right (2) Acute encephalopathy (3) UTI (urinary tract infection) Assessment/Plan all reviewed pain is controlled pt/ot report reviewed pt will need snif or home with 24 hour care. s/p surgery pain control dc planning Subjective ROS Limited/Unobtainable: No Constitutional: Reports: no symptoms HEENT: Repors: no symptoms Allergies: Coded Allergies: No Known Allergies (Unverified , 01/06/17) Objective Last 24 Hour Vital Signs Date Time Temp Pulse Resp B/P (MAP) Pulse Ox O2 Delivery O2 Flow Rate FiO2 01/14/17 16:00 98.1 82 20 122/60 96 Room Air 01/14/17 12:15 97.6 73 20 125/66 97 Room Air 01/14/17 04:07 97.6 78 21 134/77 96 Room Air 01/14/17 00:00 97.6 68 21 131/69 98 Room Air Intake and Output 01/14/17 01/15/17 19:00 07:00 Intake Total 240 ml Balance 240 ml Intake Oral 240 ml General Appearance: WD/WN HEENT: normocephalic, atraumatic Respiratory/Chest: chest wall non-tender, lungs clear Cardiovascular: normal peripheral pulses, normal rate Abdomen: normal bowel sounds, no organomegaly Extremities: no clubbing Skin: no lesions Neurologic/Psychiatric: no motor/sensory deficits Laboratory Tests 01/14/17 06:00: White Blood Count 8.0, Red Blood Count 3.49L, Hemoglobin 9.1L, Hematocrit 29.8L , Mean Corpuscular Volume 85, Mean Corpuscular Hemoglobin 26.0L, Mean Corpuscular Hemoglobin Concent 30.4L, Red Cell Distribution Width 13.1, Platelet Count 257, Mean Platelet Volume 6.9, Neutrophils (%) (Auto) 66.8, Lymphocytes (%) (Auto) 21.0, Monocytes (%) (Auto) 9.9, Eosinophils (%) (Auto) 1.9, Basophils (%) (Auto) 0.4, Sodium Level 139, Potassium Level 4.2, Chloride Level 102, Carbon Dioxide Level 26, Anion Gap 11, Blood Urea Nitrogen 11, Creatinine 0.7, Estimat Glomerular Filtration Rate , Glucose Level 103, Calcium Level 8.8 MARY ANN CRUZ Jan 14, 2017 22:22
--- NOTE | 2017-01-16 15:01 | Discharge Summary ---
Discharge Summary Hospital Course Date of Admission Jan 06, 2017 at 00:27 Date of Discharge Jan 14, 2017 at 17:35 Admitting Diagnosis HPI Favian El is a 76 year old male who was admitted on Jan 06, 2017 at 00: 27 for Rhabdomylysis Hospital Course [id number] Discharge Discharge Disposition Patient was discharged to SNF/Subacute Facility(03) Discharge Diagnoses: Sapphire Hopper NP Jan 16, 2017 15:01
--- NOTE | 2017-01-17 03:00 | Discharge Summary 2 SIG ---
DATE OF ADMISSION: 01/06/2017 DATE OF DISCHARGE: 01/14/2017 CONSULTANTS: 1. Aida Moctezuma M.D. 2. Familia Comer M.D. 3. Alexi Monique M.D. 4. Ranjan Santos M.D. 5. Scooter Sanchez M.D. Brief Hospital Course: The patient is a 76-year-old male, who was standing in the kitchen two days prior to admission. The patient blacked out and stated that he did not feel the room spinning, however, he just passed out. He was on the kitchen floor for two days. He was found by his family and EMS was called. He was initially transported to [facility] emergency room. CPK was 2385. He was then diagnosed with rhabdomyolysis and was transferred to [facility] for insurance purposes. CAT scan of the brain revealed no acute intracranial pathology. He was given IV fluids and renal function was monitored. Brain MRI done showed chronic age-related changes with no definite acute infarct, intracranial bleed, edema, or mass effect. EKG was in normal sinus rhythm with no ST to T-wave changes. Echocardiogram showed ejection fraction of 55% to 60%. Imaging to the hips were done and showed positive for distal femoral neck fracture. Orthopedic consult was done and on 01/10/2017, he underwent right hip hemiarthroplasty. Postoperatively, he was given pain management and physical therapy. He was initially started on IV Rocephin as urinalysis showed urine WBC too many to count. Urine culture showed growth of mixed Gram positives. He received two doses of cefepime and two doses of Ancef. Carotid duplex was essentially negative. CK downtrended. The patient was eventually discharged to SNF to continue rehabilitation. FINAL DIAGNOSES: 1. Rhabdomyolysis. 2. Fracture of femoral neck to the right. 3. Urinary tract infection. 4. Acute toxic metabolic encephalopathy. 5. Vitamin B12 deficiency. 6. Syncopal episode with fall. 7. Multiple abrasions with traumatic injury on the right elbow and knee, present on admission. PROCEDURE: Right hip hemiarthroplasty 01/10/[address] Santos. Disposition: The patient was discharged to rehabilitation center of [place]. DISCHARGE MEDICATIONS: Refer to medication list. Satnam Cunha M.D. I have been assigned to dictate discharge summary on this account and I was not involved in the patient's management. Sapphire Hopper N.P. DR: GENARO JOB#: [id number] CC: RYANNE
== END 2017-01-14 17:35 | DRG 469 ==
LOC: EDBD 01-06 00:27 → 2E 01-06 00:27 → 4W 01-07 15:58 → 4E 01-08 19:17
PROC: 0SRR0JA Replacement of Right Hip Joint, Femoral Surface with Synthetic Substitute, Uncemented, Open Approach (ICD-10-PCS; principal; 2017-01-10 12:45)
DX: S72.091A Other fracture of head and neck of right femur, initial encounter for closed fracture (principal); G92 Toxic encephalopathy; M62.82 Rhabdomyolysis; D69.6 Thrombocytopenia, unspecified; N39.0 Urinary tract infection, site not specified; W01.0XXA Fall on same level from slipping, tripping and stumbling without subsequent striking against object, initial encounter; Y92.009 Unspecified place in unspecified non-institutional (private) residence as the place of occurrence of the external cause; R55 Syncope and collapse; E53.8 Deficiency of other specified B group vitamins; S50.311A Abrasion of right elbow, initial encounter; S80.211A Abrasion, right knee, initial encounter; Z91.81 History of falling; F17.200 Nicotine dependence, unspecified, uncomplicated
CPT/HCPCS: 36415; 70551; 72170; 80048; 80053; 81003; 82378; 82550; 82553; 82607; 82746; 83540; 83550; 83615; 83735; 84100; 84484; 84550; 85007; 85025; 85044; 85060; 85610; 85651; 85730; 87070; 87086; 87205; 93005; 93306; 93880; 94003; 94150; J2370; J2405; J2710; J2765; J8499